=== PATIENT | male | born 1945 | race Caucasian/White ===

== ENCOUNTER 2016-12-23 07:19 | Inpatient (IN) ==
[2016-12-23 08:00] LABS: Basophils # 0.1 10*3/uL (0.0-0.2); Basophils % 0.3 % (0.0-0.8); Eosinophils # 0.1 10*3/uL (0.0-0.87); Eosinophils % 0.7 % (0.00-10.9); Hemoglobin 15.4 GM/DL (14.0-18.0); Immature Granulocytes % 0.7 %; Immature Granulocytes Absolute 0.11 #; Lymphocytes # 1.6 10*3/uL (1.4-4.0); Lymphocytes % 10.8 % (21.2-54.2); Mean Corpuscular HGB Conc 32.8 GM/DL (32-36); Mean Corpuscular Hemoglobin 30 PG (27-34); Mean Corpuscular Volume 90.4 FL (87-102); Mean Platelet Volume 11.3 FL (9.6-12.0); Monocytes # 1.4 10*3/uL (0.11-0.8); Monocytes % 9.3 % (1.7-12.7); Neutrophils # 11.9 10*3/uL (1.4-7.4); Neutrophils % 78.2 % (38.7-73.9); Platelet Count 183 T/CUMM (130-400); Red Cell Distribution Width 13.8 % (9.3-17.3); White Blood Count 15.2 T/CUMM (4-12)
--- NOTE | 2016-12-23 08:07 | XRay Report ---
XR chest 2V Date: 12/23/2016 7:42 AM History: Shortness of breath Comparison: 11/21/2016 Technique: PA and lateral chest Findings: The heart is normal in size with prior median sternotomy. Progressive parenchymal findings with small pleural effusions. Stable mediastinum with degenerative changes. Impression: COPD with chronic scarring patient with prior median sternotomy. Progressive atelectasis/infiltration/edema in the lower lung zones with small pleural effusions. PROCEDURE INTERPRETED AT [facility] DEPARTMENT OF RADIOLOGY Final Report Signed by: Dr. Pham Young
[2016-12-23] MEDS ORDERED: FUROSEMIDE 100 MG/10 ML VIAL IV STA (08:11)
[2016-12-23] MEDS ORDERED: FUROSEMIDE 100 MG/10 ML VIAL ONE (08:13)
[2016-12-23 08:18] LABS: D-Dimer <= 0.5 MG/L FEU; PT Patient Result 10.5 SECS; Partial Thromboplastin Time 33.2 SECS (0-40)
--- NOTE | 2016-12-23 08:18 | Emergency Department Note ---
Annie Fraser Brittany, am scribing for, and in the presence of, Alexx Nelson MD 08: 17. Leslie Fraser James D, MD, personally performed the services described in this documentation, ascribed by Aundrea Valencia in my presence, and it is both accurate and complete 818 . Arrival - Arrival Chief Complaint: Shortness of Breath Stated Complaint: CANT GET AIR ED Nursing Triage Note: c/o sob since thursday. patient currently being treated for blockage by Dr. Nunez with meds. unable to cath patient. hx: COPD Mode of Arrival: Wheelchair Limitations: No Limitations Source: Patient, Family Time Seen by Provider: 12/23/16 07:40 - History of Present Illness HPI Narrative: This is a 71 y/o white male,who presents to the ED with c/o dyspnea which started 3 days ago. He states the SOB is worse with exertion. He denies CP, but reports nausea and diaphoresis. He reports last night he had to sleep with extra pillows. He denies a cough or fever. Pt has no other complaints/pain in the ED at this time. Pt has a PMhx of CAD, HTN, thyroid disorder, cardiovascular problems, IDDM, dyslipidemia, and COPD. Pt has had a cardiac cath with 5 stents, CABG x 2. Pt has a family medical Hx of diabetes and heart disease. Pt is a former smoker. Pt is currently being Tx by Dr. Nunez for a blockage and is currently taking meds for this. Onset (ago): day(s) (Started 3 days ago) Consistency: constant Severity: moderate Allergies/Adverse Reactions: Allergies Allergy/AdvReac Type Severity Reaction Status Date / Time No Known Allergies Allergy Verified 11/11/16 11:33 Home Medications: Home Medications Medication Instructions Recorded Confirmed Type Aspirin [Ecotrin] 81 mg PO DAILY 11/28/15 11/22/16 History Budesonide/Formoterol 80-4.5 2 puff INH BID 11/28/15 11/22/16 History [Symbicort 80-4.5] Clopidogrel [Plavix] 75 mg PO DAILY 11/28/15 11/22/16 History Hum Insulin NPH/Reg Insulin Hm 62 unit SUBCUT BEDTIME 11/28/15 11/22/16 History [NovoLIN 70/30] Hum Insulin NPH/Reg Insulin Hm 74 unit SUBCUT DAILY 11/28/15 11/22/16 History [NovoLIN 70/30] Levothyroxine Tab [Synthroid Tab] 150 mcg PO DAILY 11/28/15 11/22/16 History Lisinopril 5 mg PO DAILY 11/28/15 11/22/16 History Montelukast Tab [Singulair Tab] 10 mg PO DAILY 11/28/15 11/22/16 History Nitroglycerin Sl Tab [Nitrostat] 0.4 mg SL Q5M PRN 11/28/15 11/22/16 History Magnesium Oxide [Magox 400] 400 mg PO BID 11/11/16 11/22/16 History Albuterol Sulfate [Proair HFA] 2 puff INH Q4H PRN 11/22/16 11/22/16 History Bisoprolol [Zebeta] 5 mg PO BID #60 tablet 11/23/16 Rx Pioglitazone [Actos] 45 mg PO DAILY tablet 11/23/16 Rx Ranolazine [Ranexa] 500 mg PO BID tablet 11/23/16 Rx Simvastatin [Zocor] 20 mg PO BEDTIME #30 tablet 11/23/16 Rx amLODIPine [Norvasc] 5 mg PO DAILY #30 tablet 11/23/16 Rx raNITIdine HCl [Ranitidine HCl] 150 mg PO BID #60 capsule 11/23/16 Rx Review of System - Review of System 12 point system: reviewed and no additional remarkable complaints except as stated - Review of System Constitutional: Present: diaphoresis. Absent: fever Respiratory: Absent: cough Cardiovascular: Present: dyspnea on exertion, orthopnea. Absent: chest pain Gastrointestinal: Present: nausea Medical,Surgical,& Family Hx - Medical History Cardio: History of: CAD, Hypertension, Cardiovascular Problems No history of: Aneurysm, Cardiac Dysrhythmia, Congenital Heart Disease, [place], Pacemaker, PVD Psychological: No history of: Bipolar Disorder, Depression, Previous Suicide Attempt Neurology: No history of: Seizures Endocrine: History of: Diabetes Mellitus (IDDM), Dyslipidemia, Thyroid Disorder Respiratory: History of: COPD No history of: Asthma, Bronchitis, Obstructive Sleep Apnea Hematology: No history of: Blood Transfusion Reaction, Blood Disorders - Surgical History Cardiac Surgeries: Sugical HX of: Cardiac Catheterization (stents x's 5), Cardiac Surgery (CABG 1995, 1999) Patient Denies: Femoral-Popliteal Bypass Graft, Carotid Endarterectomy, Internal Defibrillator, Vascular Access Devices Thoracic Surgeries: Patient denies;: Organ Transplant, Lobectomy HEENT Surgeries: Surgical HX of: Tonsilectomy & Adenoidectomy Patient denies: Carotid Endarterectomy Abdominal Surgeries: Patient denies: Splenectomy - Family History Family History: Reports;: Family Diabetes (mother), Family Heart Disease (mother ) Denies;: Family Hypertension, Family Psychiatric Problems, Family Stroke - Social History Smoking Status: Former smoker Frequency of Alcohol Use: None Type of Drug Use: None Exam Vital Signs: Vital Signs Temperature 97.6 F 12/23/16 07:50 Pulse Rate 71 12/23/16 08:30 Respiratory Rate 21 12/23/16 08:30 Blood Pressure 109/62 12/23/16 08:30 O2 Sat by Pulse Oximetry 95 12/23/16 08:30 GENERAL: This is a well-nourished well-developed white male in no apparent distress. VITAL SIGNS: Reviewed HEENT: Head is atraumatic and normocephalic. Pupils are equal round react to light. Extraocular movements are intact. Oropharynx is benign with moist mucous membranes. NECK: Neck is soft and supple without tenderness. There are no masses. There is no lymphadenopathy. LUNGS: Lungs are clear to auscultation. Chest rises symmetrically. There is no chest wall tenderness. CV: Heart is regular rate and rhythm without murmurs rubs or gallops. ABDOMEN: Abdomen is soft, nontender to palpation. There are no abdominal abnormal masses palpated. There is no organomegaly. Bowel sounds are present and active. SKIN: Skin is warm and dry. No rash. EXTREMITIES: Patient has full range of motion without tenderness. There is no pedal edema. NEUROLOGIC: Awake alert and oriented 4. Cranial nerves II through XII are grossly intact. Motor is 5 over 5 in all extremities bilaterally. Results - Labs CBC & BMP: 12/23/16 07:50 12/23/16 07:50 Lab Results: I have reviewed the patients labs Labs: Laboratory Tests 12/23/16 12/23/16 12/23/16 07:50 07:50 07:50 WBC 15.2 H Hgb 15.4 Hct 47.0 Plt Count 183 INR 1.0 Troponin I 0.349 H B-Natriuretic Peptide 12/23/16 07:50 WBC Hgb Hct Plt Count INR Troponin I B-Natriuretic Peptide 525 H - EKG EKG results: interpreted by ERMD - Impressions EKG: Normal sinus rhythm with a rate of 74, left atrial enlargement, nonspecific ST-T wave changes, normal axis. - Diagnostic Findings Procedure: Chest x-ray: image reviewed by me (Increased pulmonary markings in the bases bilaterally, old median sternotomy, small bilateral pleural effusions. ) Disposition Clinical Impression: Coronary artery disease, Elevated troponin, Dyspnea on exertion Case discussed with: patient Disposition: Still a Patient Condition: Stable
[2016-12-23 08:39] LABS: Bilirubin,Total 1.4 MG/DL (0.2-1.0); Osmolality,Calculated 289.8 MOS/KG (273-304); Potassium 4.9 MMOL/L (3.5-5.1); Total Protein 6.9 G/DL (6.4-8.3); Troponin I Only 0.349 NG/ML (0.00-0.045)
[2016-12-23] MEDS ORDERED: ENOXAPARIN 100 MG/ML SYRINGE SUBCUT STA (08:52)
[2016-12-23] MEDS ORDERED: ASPIRIN 325 MG TABLET PO STA (08:52)
[2016-12-23] MEDS ORDERED: ENOXAPARIN 100 MG/ML SYRINGE SUBCUT ONE (08:57)
[2016-12-23] MEDS ORDERED: GLUCAGON 1 MG VIAL IM PRN (10:00)
[2016-12-23] MEDS ORDERED: MAGNESIUM SULF RIDER 2 GM in PREMIX 1 EACH IV PRN (10:00)
[2016-12-23] MEDS ORDERED: MAGNESIUM SULF RIDER 4 GM in PREMIX 1 EACH IV PRN (10:00)
[2016-12-23] MEDS ORDERED: DEXTROSE 50% 25 GM/50 ML VIAL IV PRN (10:00)
--- NOTE | 2016-12-23 10:38 | EKG Report ---
Stationary ECG Study [facility] ER Test Date: 12/23/2016 10:36:53 AM Pat Name: LIONEL PEREZ Department: Room: 130 Gender: M Parking Worker: : 1945 Requested by: Alexx Araiza Order Number: [id number] Reading MD: NBA NOLASCO Intervals [place] Rate: 66 P: 65 SC: 155 QRS: 59 QRSD: 112 T: 138 QT: 421 QTc: 435 Interpretive Statements SINUS RHYTHM POSSIBLE LEFT ATRIAL ENLARGEMENT ANTERIOR MYOCARDIAL INFARCTION, PROBABLY RECENT Electronically Signed On 12-24-16 20:18:42 CDT by NBA NOLASCO [email or web address]
[2016-12-23 11:13] LABS: Troponin I Only 0.392 NG/ML (0.00-0.045)
--- NOTE | 2016-12-23 12:14 | EKG Report ---
Stationary ECG Study [facility] ER Test Date: 12/23/2016 7:48:52 AM Pat Name: LIONEL PEREZ Department: Room: 130 Gender: M Assembly Inspector: : 1945 Requested by: Alexx Araiza Order Number: [id number] Reading MD: NBA NOLASCO Intervals [place] Rate: 74 P: 64 TN: 166 QRS: 60 QRSD: 109 T: 139 QT: 383 QTc: 411 Interpretive Statements SINUS RHYTHM LEFT ATRIAL ENLARGEMENT ABNORMALITY Electronically Signed On 12-24-16 20:17:37 CDT by NBA NOLASCO [email or web address]
[2016-12-23] MEDS: INSULIN LISPRO 100 UNIT/ML SUBCUT SCH ×3 (12:21→21:00)
--- NOTE | 2016-12-23 12:49 | EKG Report ---
Stationary ECG Study [facility] Test Date: 12/23/2016 12:48:05 PM Pat Name: LIONEL PEREZ Department: Room: 130 Gender: M Test Driver: VANITA : 1945 Requested by: Alexx Araiza Order Number: [id number] Reading MD: NBA NOLASCO Intervals [place] Rate: 73 P: 68 NC: 176 QRS: 64 QRSD: 112 T: 132 QT: 382 QTc: 408 Interpretive Statements SINUS RHYTHM MODERATE INTRAVENTRICULAR CONDUCTION DELAY NONSPECIFIC OLD ANTEROSEPTAL MYOCARDIAL INFARCTION Electronically Signed On 12-24-16 20:52:41 CDT by NBA NOLASCO [email or web address]
[2016-12-23] MEDS: SODIUM CHLORIDE 0.9% 1,000 ML IV SCH (13:00)
[2016-12-23 13:26] LABS: Troponin I Only 0.356 NG/ML (0.00-0.045)
--- NOTE | 2016-12-23 14:00 | Cardiology History & Physical ---
Assessment and Plan - Time spent with patient Time spent with patient: Greater than 30 minutes (due to assessment, plan, and documentation) (1) Dyspnea on exertion Status: Acute Assessment and plan: We will start Lasix 20 mg IV daily. He received 60 mg of Lasix IV in the ER today and has diuresed well. He is now breathing more comfortably. Current Visit: Yes (2) Ischemic cardiomyopathy Status: Chronic Assessment and plan: Continue home medications including beta kaila, calcium channel kaila, divya inhibitor. Start Lasix 20mg IV daily. Monitor BMP. Has undergone recent TTE and LVG. Will defer to Dr. Suero as to rechecking an echocardiogram. Current Visit: No (3) Coronary artery disease Status: Chronic Assessment and plan: Troponins flat. Currently denies chest pain. Continue with current therapy. Current Visit: Yes (4) Elevated troponin Status: Acute Assessment and plan: Flat troponin elevation. Denies chest pain. Continue with current therapy. Current Visit: Yes (5) COPD (chronic obstructive pulmonary disease) Status: Chronic Assessment and plan: Continue home meds. O2 PRN. Current Visit: No (6) HLD (hyperlipidemia) Status: Chronic Assessment and plan: Continue statin. Current Visit: No (7) HTN (hypertension) Status: Chronic Assessment and plan: Currently well controlled. Will continue home medications, monitor, and adjust as needed. Current Visit: No (8) History of ASCVD Status: Chronic Current Visit: No (9) Status post coronary artery bypass grafting Status: Chronic Assessment and plan: He recently underwent left heart catheterization on 11/11/[address] Nunez. He was found to have severe [place] multivessel coronary artery disease with one out of 3 grafts patent with good LAD vein graft and occluded circumflex graft. Ejection fraction was 55-60%. He has had continued accelerated anginal chest pain, most likely related to his occluded circumflex graft. At the time of cath, he was for continued aggressive medical therapy. Current Visit: No (10) T2DM (type 2 diabetes mellitus) Status: Chronic Assessment and plan: He has been placed on sliding scale insulin during hospitalization. Current Visit: No History of Present Illness Chief complaint: SOB History of present illness: Mr. Lawrence is a 71 year old male who is routinely followed by Dr. Nunez. Dr. Hernandez is his injection wax molder. He has history of coronary artery disease, ischemic cardiomyopathy, chronic obstructive pulmonary disease, type 2 diabetes, hyperlipidemia, hypertension, prior coronary artery bypass grafting ( 1995 & 1999). He has risk factors significant for: Personal history, age, sedentary lifestyle, hypertension, hyperlipidemia, former smoker. He reports he quit smoking 10-15 years ago but previously smoked for approximately 40-50 years. He presented to the emergency room today with complaints of shortness of breath. Mr. Lawrence has chronic dyspnea but reports this started getting worse on 12/19/16. He tells me he feels like he is "smothering" and is unable to draw a deep breath. He describes it as being worse with exertion and has had associated symptoms of nausea and diaphoresis. He has had a non-productive cough but denies fever, chills, painful inspiration, chest pain, palpitations, dizziness, or lightheadedness. He tells me has been unable to sleep flat and has had to sleep elevated on 2 thick pillows. He denies bilateral lower extremity, abdominal, or facial edema, but does report bilateral hand swelling yesterday. He was previously admitted on 11/21/16 with complaints of chest discomfort. He recently underwent left heart catheterization on 11/11/[address] Nunez. He was found to have severe quinault multivessel coronary artery disease with one out of 3 grafts patent with good LAD vein graft and occluded circumflex graft. Ejection fraction was 55-60%. He has had continued accelerated anginal chest pain, most likely related to his occluded circumflex graft. At the time of cath , he was for continued aggressive medical therapy. At his recent clinic visit with Dr. Nunez on 12/15/16, his Imdur was increased to 60mg orally twice daily , Zebeta was increased to 10mg orally in the morning and 5 mg orally in the evening. He tells me since these changes he has had no further chest pain. EKG on admission shows sinus rhythm with nonspecific ST-T wave abnormality. Rates have been controlled in the 70s. Blood pressure is currently well controlled. White blood cell count was elevated on admission but he currently has no signs and symptoms of infection. He has been afebrile. We will obtain a urinalysis, recheck CBC in the morning, and continue to monitor for signs of infection. He does report some urinary frequency last night but reports this has gotten better today. BNP on admission was 525. Chest x-ray was consistent with progressive edema in the lower lung zones with small pleural effusions. He was given 60 mg of Lasix IV in the emergency room and is now breathing more comfortably. He was noted to have a bump in his troponins at 0.349, 0.392, and 0.356. Ejection fraction per cath on November 11, 2016 was 55-60%. Transthoracic echocardiogram done on October 15, 2016 in the clinic revealed decreased left ventricular size, normal left ventricular systolic function, abnormal left ventricular diastolic dysfunction (stage I impaired relaxation), mild left ventricular hypertrophy, mildly increased left atrial diameter, mild mitral regurgitation, mild tricuspid regurgitation. Further plan and addendum to follow by Dr. Suero. Home Medications Medication Instructions Recorded Confirmed Type Aspirin [Ecotrin] 81 mg PO DAILY 11/28/15 12/23/16 History Budesonide/Formoterol 80-4.5 2 puff INH BID 11/28/15 12/23/16 History [Symbicort 80-4.5] Clopidogrel [Plavix] 75 mg PO DAILY 11/28/15 12/23/16 History Hum Insulin NPH/Reg Insulin Hm 62 unit SUBCUT BEDTIME 11/28/15 12/23/16 History [NovoLIN 70/30] Hum Insulin NPH/Reg Insulin Hm 74 unit SUBCUT DAILY 11/28/15 12/23/16 History [NovoLIN 70/30] Levothyroxine Tab [Synthroid Tab] 150 mcg PO DAILY 11/28/15 12/23/16 History Lisinopril 5 mg PO DAILY 11/28/15 12/23/16 History Montelukast Tab [Singulair Tab] 10 mg PO DAILY 11/28/15 12/23/16 History Nitroglycerin Sl Tab [Nitrostat] 0.4 mg SL Q5M PRN 11/28/15 12/23/16 History Magnesium Oxide [Magox 400] 400 mg PO BID 11/11/16 12/23/16 History Albuterol Sulfate [Proair HFA] 2 puff INH Q4H PRN 11/22/16 12/23/16 History Ranolazine [Ranexa] 500 mg PO BID tablet 11/23/16 12/23/16 Rx amLODIPine [Norvasc] 5 mg PO DAILY #30 tablet 11/23/16 12/23/16 Rx raNITIdine HCl [Ranitidine HCl] 150 mg PO BID #60 capsule 11/23/16 12/23/16 Rx Bisoprolol Fumarate 5 mg PO BEDTIME 12/23/16 12/23/16 History Bisoprolol [Zebeta] 10 mg PO QAM 12/23/16 12/23/16 History Isosorbide Mononitrate [Isosorbide 60 mg PO DAILY 12/23/16 12/23/16 History Mononitrate ER] metFORMIN [Glucophage] 500 mg PO TID W/MEALS 12/23/16 12/23/16 History Allergies Allergy/AdvReac Type Severity Reaction Status Date / Time No Known Allergies Allergy Verified 11/11/16 11:33 Review of systems: - Constitutional: Present: As per HPI. Absent: anorexia, chills, daytime sleepiness, excessive sweating, fever(s), frequent falls, headache(s), increased appetite, lethargy, malaise, night sweats, stops breathing during sleep, weakness, weight gain, weight loss, fatigue. - EENT Eyes: Present: As per HPI. Absent: blurry vision, diplopia, loss of vision Ears: Present: As per HPI. Absent: decreased hearing, ear discharge, ear pain Nose, mouth and throat: Present: As per HPI. Absent: dysphagia, epistaxis, headache(s), hoarseness, lip swelling, nasal congestion, neck mass, neck pain, sinus pressure, sore throat, throat swelling, tongue swelling, vertigo - Cardiovascular: Present: dyspnea, dyspnea on exertion, bilateral hand edema yesterday, diaphoresis, as per HPI. Absent: chest pain at rest, chest pain with activity, claudication, radiating jaw, neck or arm pain, lightheadedness, orthopnea, palpitations, PND - Respiratory: Present: non productive cough, as per HPI. Absent: dyspnea, dyspnea on exertion, hemoptysis, wheezing, snoring, pain on inspiration - Gastrointestinal: Present: nausea, As per HPI. Absent: abdominal pain, bloating, change in bowel habits, constipation, diarrhea, heartburn, hematemesis , hematochezia, loose stools, melena, vomiting - Genitourinary: Present: urinary frequency, As per HPI. Absent: difficulty urinating, dysuria, flank pain, hematuria, nocturia, urinary incontinence - Musculoskeletal: Present: As per HPI. Absent: arthralgias, back pain, joint swelling, limited range of motion, muscle cramps, muscle weakness, myalgias - Neurological: Present: As per HPI. Absent: abnormal gait, abnormal speech, behavioral changes, confusion, convulsions, disequilibrium, dizziness, focal weakness, frequent falls, headache(s), memory loss, numbness, paresthesias, radicular pain, syncope, tremor(s) - Psychiatric: Present: As per HPI. Absent: anxiety, confusion, depression, panic attacks - Endocrine: Present: As per HPI. Absent: cold intolerance, fatigue, heat intolerance, polydipsia, polyphagia - Hematologic/Lymphatic: Present: As per HPI. Absent: easy bleeding, easy bruising, lymphadenopathy Medical,Surgical,& Family Hx - Medical History Cardio: History of: CAD, Hypertension, Cardiovascular Problems No history of: Aneurysm, Cardiac Dysrhythmia, Congenital Heart Disease, [place], Pacemaker, PVD Psychological: No history of: Bipolar Disorder, Depression, Previous Suicide Attempt Neurology: No history of: Seizures Endocrine: History of: Diabetes Mellitus (IDDM), Dyslipidemia, Thyroid Disorder Respiratory: History of: COPD No history of: Asthma, Bronchitis, Obstructive Sleep Apnea Musculoskeletal: No history of: Amputation Hematology: No history of: Blood Transfusion Reaction, Blood Disorders - Surgical History Cardiac Surgeries: Sugical HX of: Cardiac Catheterization (stents x's 5), Cardiac Surgery (CABG 1995, 1999) Patient Denies: Femoral-Popliteal Bypass Graft, Carotid Endarterectomy, Internal Defibrillator, Vascular Access Devices Thoracic Surgeries: Patient denies;: Organ Transplant, Lobectomy HEENT Surgeries: Surgical HX of: Tonsilectomy & Adenoidectomy Patient denies: Carotid Endarterectomy Abdominal Surgeries: Patient denies: Abdominal Surgery, Appendectomy, Cholecystectomy, Hernia Repair, Splenectomy - Family History Family History: Reports;: Family Diabetes (mother), Family Heart Disease (mother ) Denies;: Family Hypertension, Family Psychiatric Problems, Family Stroke - Social History Smoking Status: Former smoker Frequency of Alcohol Use: None Type of Drug Use: None Cardiology Physical Exam - Constitutional Vitals: Vital Signs Temp Pulse Resp BP Pulse Ox 96.5 F L 71 21 116/69 99 12/23/16 12:00 12/23/16 12:00 12/23/16 12:00 12/23/16 12:00 12/23/16 12:00 Intake and Output 12/22/16 12/23/16 12/23/16 22:59 06:59 14:59 Output Total 500 / 500 Balance -500 / -500 Output: Urine 500 / 500 Other: Voiding Method Urinal # Voids 2 Weight 226 lb 8 oz Patient Weight 12/24/16 06:59 Weight 226 lb 8 oz Exam: General: Present: Appears Well, No Apparent Distress. Pleasant and cooperative. Appears comfortable. Mild conversational dyspnea noted. HEENT: Present: PERRL, Normocephaly, atraumatic. Mucus Membranes Moist. No jaundice noted. Conjunctiva moist and clear, sclerae anicteric Neck: Present: Supple Neck, Midline Trachea, No Masses, No Bruit Cardiac: Present: Regular Rate and Rhythm, No Murmur Lungs: Present: Bibasilar crackles, no wheeze, rhonchi, rales. Neuro: Present: Awake, alert, and oriented x3. Moves all extremities well without hemiparesis or paralysis. Grossly Intact. Absent: Resting Tremor, Essential Tremor Abdomen: Present: Soft, Active Bowel Sounds, No Masses, Non-Tender, nondistended. No abdominal bruit or thrill noted. Skin: Present: Clear. Absent: Rash, No skin breakdown. Musculoskeletal: Present: No Fluid Collection, No Pain, Normal Range of Motion Extremities: Present: Normal Gait, No Clubbing, No Cyanosis, Upper Extr. Pulses 2+, Lower Extr. Pulses 2+, No edema. Capillary refill less than 3 seconds. Result/EKG - Labs CBC & BMP: 12/23/16 07:50 12/23/16 07:50 Lab Results: I have reviewed the past 24 hour labs Labs: Laboratory Results - last 24 hr 12/23/16 12/23/16 10:30 11:39 POC Glucose 153 H Total Creatine Kinase 113 CK-MB (CK-2) 2.9 Troponin I 0.392 H - EKG EKG results: interpreted by me, sinus rhythm (with nonspecific ST-T wave abnormality)
[2016-12-23] MEDS ORDERED: ZALEPLON 5 MG CAPSULE PO PRN (15:09)
[2016-12-23] MEDS ORDERED: BISACODYL 5 MG TABLET PO PRN (15:09)
[2016-12-23] MEDS ORDERED: ACETAMINOPHEN 325 MG TABLET PO PRN (15:09)
[2016-12-23] MEDS ORDERED: ONDANSETRON 4 MG/2 ML VIAL IV PRN (15:09)
[2016-12-23] MEDS ORDERED: NITROGLYCERIN SL 0.4 MG TABLET SL PRN (15:53)
[2016-12-23] MEDS ORDERED: ALBUTEROL 2.5 MG/3 ML NEB RESP TX PRN (15:53)
--- NOTE | 2016-12-23 16:27 | EKG Report ---
Stationary ECG Study [facility] Test Date: 12/23/2016 4:25:19 PM Pat Name: LIONEL PEREZ Department: Room: 130 Gender: M Student Dean: : 1945 Requested by: Alexx Araiza Order Number: [id number] Reading MD: SAULO NAVARRETE Intervals [place] Rate: 71 P: 72 MS: 162 QRS: 68 QRSD: 113 T: 138 QT: 427 QTc: 450 Interpretive Statements SINUS RHYTHM POSSIBLE LEFT ATRIAL ENLARGEMENT ANTERIOR MYOCARDIAL INFARCTION, PROBABLY RECENT Electronically Signed On 12-25-16 13:57:56 CDT by SAULO NAVARRETE [email or web address]
[2016-12-23] MEDS: CLOPIDOGREL 75 MG TABLET PO SCH (16:47)
[2016-12-23 16:48] LABS: Troponin I Only 0.331 NG/ML (0.00-0.045)
[2016-12-23 17:08] LABS: Apearance,Urine CLEAR (Clear); Bilirubin,Urine Negative (Negative); Blood, Urine Negative (Negative); Glucose,Urine (UA) Negative (Negative); Ketones,Urine Negative (Negative); Nitrite,Urine Negative (Negative); Protein,Urine Negative; Urine Color Yellow (Yellow); Urine Specific Gravity 1.005 (1.001-1.035); Urine Urobilinogen < 2.0 EU/DL (0.2-1.0); WBC,Urine <1 /HPF (0-6)
[2016-12-23] MEDS: ALBUTEROL/IPRATROPIUM 3 ML NEB RESP TX SCH (20:49)
[2016-12-23] MEDS ORDERED: BISOPROLOL 5 MG TABLET PO SCH (21:00)
[2016-12-23] MEDS: RANOLAZINE 500 MG TABLET PO SCH (21:57)
[2016-12-23] MEDS: FAMOTIDINE 20 MG TABLET PO SCH (21:57)
[2016-12-23] MEDS: MAGNESIUM OXIDE 400 MG TABLET PO SCH (21:57)
[2016-12-23] MEDS: BUDESONIDE/FORMOTEROL 80-4.5 INHALER 6.9 GM INH SCH (21:57)
[2016-12-24] MEDS: ALBUTEROL/IPRATROPIUM 3 ML NEB RESP TX SCH ×6 (00:09→21:12)
[2016-12-24 05:42] LABS: Basophils % 0.2 % (0.0-0.8); Eosinophils # 0.1 10*3/uL (0.0-0.87); Hematocrit 44.3 VOL% (42.0-52.0); Hemoglobin 14.4 GM/DL (14.0-18.0); Immature Granulocytes % 0.8 %; Immature Granulocytes Absolute 0.09 #; Lymphocytes # 2.2 10*3/uL (1.4-4.0); Lymphocytes % 20.1 % (21.2-54.2); Mean Corpuscular HGB Conc 32.5 GM/DL (32-36); Mean Corpuscular Hemoglobin 29 PG (27-34); Mean Platelet Volume 11.6 FL (9.6-12.0); Monocytes # 1.2 10*3/uL (0.11-0.8); Monocytes % 10.8 % (1.7-12.7); Neutrophils # 7.4 10*3/uL (1.4-7.4); Neutrophils % 67.1 % (38.7-73.9); Platelet Count 161 T/CUMM (130-400); Red Blood Count 4.98 MC/CUMM (3.8-5.5); White Blood Count 11.1 T/CUMM (4-12)
[2016-12-24 06:12] LABS: Calcium 8.6 MG/DL (8.5-10.1); Magnesium 2.2 MG/DL (1.8-2.4); Potassium 4.7 MMOL/L (3.5-5.1)
[2016-12-24 06:20] LABS: Risk Ratio 2.8; VLDL CHOLESTEROL 20.4 MG/DL
[2016-12-24] MEDS: SODIUM CHLORIDE 0.9% 1,000 ML IV SCH (07:30)
[2016-12-24] MEDS: INSULIN LISPRO 100 UNIT/ML SUBCUT SCH ×4 (08:53→20:45)
[2016-12-24] MEDS: ASPIRIN EC 81 MG TABLET PO SCH (08:54)
[2016-12-24] MEDS: amLODIPine 5 MG TABLET PO SCH (08:54)
[2016-12-24] MEDS: MAGNESIUM OXIDE 400 MG TABLET PO SCH ×2 (08:54→20:44)
[2016-12-24] MEDS: ISOSORBIDE MONONITRATE 60 MG TABLET PO SCH (08:54)
[2016-12-24] MEDS: LISINOPRIL 5 MG TABLET PO SCH (08:55)
[2016-12-24] MEDS: PANTOPRAZOLE 40 MG TABLET PO SCH (08:55)
[2016-12-24] MEDS: LEVOTHYROXINE 150 MCG TABLET PO SCH (08:55)
[2016-12-24] MEDS: FAMOTIDINE 20 MG TABLET PO SCH ×2 (08:55→20:44)
[2016-12-24] MEDS: CLOPIDOGREL 75 MG TABLET PO SCH (08:55)
[2016-12-24] MEDS: BUDESONIDE/FORMOTEROL 80-4.5 INHALER 6.9 GM INH SCH ×2 (08:56→22:14)
[2016-12-24] MEDS: MONTELUKAST 10 MG TABLET PO SCH (08:56)
[2016-12-24] MEDS: RANOLAZINE 500 MG TABLET PO SCH ×2 (08:56→20:44)
[2016-12-24] MEDS: FUROSEMIDE 20 MG/2 ML VIAL IV SCH (08:59)
[2016-12-24] MEDS ORDERED: ENOXAPARIN 40 MG/0.4 ML SYRINGE SUBCUT SCH (09:00)
[2016-12-24] MEDS ORDERED: BISOPROLOL 5 MG TABLET PO SCH (09:00)
[2016-12-24] MEDS ORDERED: BISOPROLOL 5 MG TABLET PO ONE (10:54)
--- NOTE | 2016-12-24 11:00 | EKG Report ---
Stationary ECG Study [facility] Test Date: 12/24/2016 10:59:28 AM Pat Name: LIONEL PEREZ Department: Room: 296 Gender: M Sales Inspector: GM : 1945 Requested by: Leland Suero Order Number: [id number] Reading MD: SAULO NAVARRETE Intervals [place] Rate: 84 P: 81 AR: 173 QRS: 96 QRSD: 118 T: 152 QT: 389 QTc: 430 Interpretive Statements SINUS RHYTHM BORDERLINE RIGHT AXIS DEVIATION ANTEROSEPTAL MYOCARDIAL INFARCTION, POSSIBLY RECENT Electronically Signed On 12-26-16 12:14:54 CDT by SAULO NAVARRETE [email or web address]
[2016-12-24] MEDS ORDERED: ENOXAPARIN 60 MG/0.6 ML SYRINGE SUBCUT ONE (11:09)
[2016-12-24] MEDS ORDERED: NITROGLYCERIN 2% OINT 1 INCH/GM PACK TOP SCH (12:00)
[2016-12-24] MEDS ORDERED: DIAZEPAM 5 MG TABLET PO ONE (12:34)
[2016-12-24] MEDS ORDERED: MAGNESIUM SULF RIDER 2 GM in PREMIX 1 EACH IV PRN (12:34)
[2016-12-24] MEDS ORDERED: diphenhydrAMINE CAP 25 MG CAPSULE PO ONE (12:34)
[2016-12-24] MEDS ORDERED: POTASSIUM CHLORIDE RIDER 10 MEQ in PREMIX 1 EACH IV PRN (12:34)
--- NOTE | 2016-12-24 12:36 | History and Physical Update ---
Sedation H&P Update - History and Physical H&P was reviewed, the patient examined and there: are no changes in the patients condition since last H&P was completed. - Dictation Physical: refer to H&P completed by admitting physician - Physical Exam Mental Status: alert and oriented Heart: regular rate and rhythm Lung: clear to auscultation Abdomen: within normal limits Vitals: within normal limits - Sedation Plan for Sedation: moderate Patient Consent: Procedure disscussed with patient and patinet has consented., Risks and benefits were discussed with patient,including infection,, bleeding, injury to surrounding structures, seizure, temporary nerve, Patient understands and accepts potential risks/benefits and agrees to, proceed. ASA Class: IV Airway Assessment: Class III: Soft palate, base of uvula visible
[2016-12-24] MEDS ORDERED: HEPARIN/NACL 0.9% 2 UNITS/ML 1,000 ML IV ONE (13:05)
[2016-12-24] MEDS ORDERED: LIDOCAINE 1% 20 ML VIAL ONE (13:05)
[2016-12-24] MEDS ORDERED: MIDAZOLAM 2 MG/2 ML VIAL ONE ×2 (13:16→14:22)
[2016-12-24] MEDS ORDERED: fentaNYL 100 MCG/2 ML VIAL ONE (13:16)
[2016-12-24] MEDS ORDERED: ENOXAPARIN 60 MG/0.6 ML SYRINGE ONE (13:44)
--- NOTE | 2016-12-24 14:30 | Cardiology Progress Note ---
Assessment and Plan - Time spent with patient Time spent with patient: Greater than 30 minutes (1) Dyspnea on exertion Status: Acute Assessment and plan: Yesterday, the patient was admitted with dyspnea on exertion. His thought to possibly be heart failure or lung disease. Is being treated. Today, he is having unstable angina with inferolateral EKG changes Plan/recommendation: ask Dr. Nayla Elizabeth to see the Films. We will recath him if he thinks there is something he could fix percutaneously The decision on doing a heart cath was made today. It was not planned for today Increase Lovenox to try to given the equivalent of 1 milligram per kilogram twice daily Hydrate with fluids if he has a cath Add Nitropaste 1 inch now and every 6 hours EKG was done. It showed inferolateral ST depression I gave him an extra 5 mg of bisoprolol. I will then increase the bisoprolol to 10 mg p.o. twice daily. The above was discussed with the patient. He is willing to undergo cath if needed. Current Visit: Yes (2) Elevated troponin Status: Acute Current Visit: Yes (3) Coronary artery disease Status: Chronic Current Visit: Yes (4) Chest pain Status: Acute Current Visit: No (5) Unstable angina pectoris Status: Acute Current Visit: No (6) COPD (chronic obstructive pulmonary disease) Status: Chronic Current Visit: No (7) HLD (hyperlipidemia) Status: Chronic Current Visit: No (8) HTN (hypertension) Status: Chronic Current Visit: No (9) Status post coronary artery bypass grafting Status: Chronic Current Visit: No (10) T2DM (type 2 diabetes mellitus) Status: Chronic Current Visit: No Cardiology - PN: Subj Interval history: the patient is having chest pain. It is his type of angina. The patient is having chest pain. It is his angina. It started mildly early this morning. I saw the patient around 11 AM. Exam (Progress Note) - Constitutional Exam: HEENT: Pupils equal, reactive to light and accommodation Neck: NoJVD or bruit Lungs clear to auscultation Heart: Regular rhythm rate with normal S1 and S2. Apical S4 Abdomen: No hepatosplenomegaly Spine/extremities: No clubbing, cyanosis, or edema Neuro: Nonfocal Psych: No depression or anxiety Result/EKG - Labs CBC & BMP: 12/24/16 05:22 12/24/16 05:22 Lab Results: I have reviewed the past 24 hour labs - EKG EKG results: interpreted by me Quality Measures - VTE Deep Vein Thrombosis/Pulmonary Embolism Present on Admission: No
[2016-12-24] MEDS ORDERED: NITROGLYCERIN DRIP 50 MG/250 ML BOTTLE IV ONE (14:39)
[2016-12-24] MEDS ORDERED: CLOPIDOGREL 300 MG TABLET ONE (14:50)
[2016-12-24] MEDS ORDERED: CLOPIDOGREL 300 MG TABLET PO ONE (14:55)
--- NOTE | 2016-12-24 15:15 | Cardiac Catheterization ---
Date of Procedure:: 12/24/16 Pre-op Diagnosis: Unstable angina Post-op diagnosis: other (Unstable angina secondary to occluded saphenous vein graft to the LAD) Procedure: Procedures: 1. Selective left and right coronary angiography 2. Selective saphenous vein graft injection to the LAD 3. Percutaneous coronary mention of the saphenous vein graft to the LAD 4. Left heart catheterization resting hemodynamics After consent was taken from the patient. Taken to the catheterization lab for left heart catheterization via the femoral artery. Time out was taken and recorded. 1% lidocaine was infiltrated in the skin and subcutaneous tissue overlying the right femoral artery. Modified Seldinger technique and an 18- gauge Anhelo needle was used for access to the right femoral artery. An 0.35 J- wire was advanced through the needle into the central aorta under fluoroscopy. A small skin was made and a 6 [place] sheath was placed over the wire. The sheath was aspirated and flushed. A JL46 was advanced over the wires in the left main coronary artery was selectively engaged. Multiple orthogonal views of the left system were obtained. The catheter was then exchanged over the wire. The sheath was aspirated and flushed. A JR4 catheter was advanced over the wire into the central aorta. The right coronary was selectively engaged and orthogonal views of the right coronary artery were obtained. Cath was then pulled back to engage the only remaining vein graft to the RCA it was engaged and found to be completely occluded. The catheter was then exchanged over the wire, the sheath was aspirated and flushed. At this time an angled pigtail catheter was advanced across the aortic valve into the ventricle. Pressure measurements were obtained and a cine ventriculogram was performed in the SUMMERS projection with 10 mL/s for a total of 30 mL of contrast. Pullback measurements were performed. The bottle machine operator reviewed the films. At this time additional 40 mg of IV Lovenox were given on the background of previous Lovenox given 2 sequential doses for a total of 100 mg over the last 6 or 8 hours. The patient was in chronic clopidogrel therapy. Sheath was aspirated and flushed at this time an LCB guide was advanced in the central aorta the saphenous vein graft to the LAD was engaged. There was 100% occlusion proximally with NOMI 0 flow. At this time the pro-water wire was advanced with some difficulty to the initial stent unsuccessfully the wire became deformed at the ENT was exchanged removed thrown away for a PT Graphix which was then advanced over the hump has point of the graft and would not proceed through the second stent. Support with a 2.0 X 12 balloon was able to advance the wire some better. Ultimately this wire to became deformed and it was exchanged for a short pro-water which was then used to gain access to the area that appeared to be consistent with the brev[place] mission LAD. Dottering was performed. It demonstrated that we were intact in the true lumen of the left anterior descending artery. At this time inflations were made at both stents there are areas of high-grade stenosis. The culprit lesion appeared to be the distal segment of the distal stent where there was an segment stenosis. This area was ballooned there is improvement in flow to NOMI I at this time there was a long segment of arterial felt to be probably early fibrotic changes or clot formation in the graft. There is absolutely no way feasible to deliver a filter wire at this time. The balloon was removed and the 3.0 x 38 mm stent was deployed covering the distal segment of the previously deployed distal stent all the way back for 38 mm. There appear to be dramatic improvement in flow at this time there was much better filling of the LAD. Now a second 3 oh by 33 mm Xience stent was placed in the proximal segment covering the previously deployed stent which also had significant amount of abnormalities and it. This felt short of the ostium due only to the length of available stents. There was dramatic improvement in the vessel after these 2 stents are deployed however it was clear that the segments between the distal proximal stent in the proximal distal stent was not acceptable. A third 3.5 x 38 mm Xience stent was deployed and overlapped both stents. At the completion of the procedure the ostium of the graft continued to have what appeared to be a flow- limiting lesion and a final 3.5 x 23 mm Xience drug-eluting stent was deployed. There appeared to be excellent angiographic result distal vessel is very small 200 g of intragraft nitroglycerin were given there was improvement. NOMI -3 flow was reestablished and all visible branches. Was felt that maximum benefit had been attained. The sheath was aspirated and flushed and a right femoral and iliac angiography was performed. The access site was amenable for closure and the area was reprepped with ChloraPrep and draped with sterile towels. The Mynx closure device was used in standard technique. There was no hematoma and distal pulses were good. Diagnostic fluoroscopy time 23.1 minutes with total fluoroscopy dose 2037 mGy Total contrast exposure 320 cc of Omnipaque FINDINGS: LV: 103/13 LVEDP: 15 Ao: 100/54 LM: Ostial disease approximately 60%. LAD: LAD is 100% occluded in the proximal segment there is a long segment of chronic total occlusion in the distal LAD is filled on initial films with homocollaterals the entire system is diffusely diseased LCx: There is a nondominant artery that is small. There are 2 reasonable obtuse marginals. RCA: There is a very large dominant vessel that is diffuse only mildly disease with no focal high-grade epicardial stenosis RFA/ATUL: There is mild atheroma in the right femoral artery the iliac artery looks good is amenable for closure with Mynx but there is a close by branches felt not to be used with Angio-Seal Assessment: 1. In segment and in-stent restenosis of previously deployed drug-eluting stents and saphenous vein graft to the LAD with NOMI 0 flow and 1% occlusion pre -PCI status post PCI with multiple long drug-eluting stents with NOMI-3 flow and angiographically less than 10% residual stenosis 2. Mildly increased left ventricular end-diastolic pressure PLAN: 1. Escalate dual antiplatelet therapy 2. Add dipyridamole 3. Medical management for remaining coronary artery disease 4. Aggressive statin medication 5. Cardiac rehabilitation 6. Monitor in the ICU for complications with serial cardiac biomarkers due to the 1% occlusion of the vessel and the nature of the work performed I will be anticipating an increase in troponins. 7. Had a long discussion with the patient's family about the findings and his long-term management of this disease Implants: Overlapping drug-eluting stents in the saphenous vein graft to the LAD as below distal to proximal: 3.0 X 38 mm Xience Alpine drug-eluting stent 3.5 x 38 mm Xience Alpine drug-eluting stent 3.0 x 33 mm Xience Alpine drug-eluting stent 3.5 x 23 mm Xience Alpine drug-eluting stent Anesthesia: moderate conscious sedation Surgeon / Physician: Nayla Casarez Dobie Worker: none Estimated blood loss: none Specimens: none sent Condition: stable Disposition: floor - Medications / Follow-up
[2016-12-24] MEDS: BISOPROLOL 5 MG TABLET PO SCH (20:44)
[2016-12-24] MEDS: CILOSTAZOL 50 MG TABLET PO SCH (20:44)
[2016-12-24] MEDS ORDERED: ENOXAPARIN 100 MG/ML SYRINGE SUBCUT SCH (21:00)
[2016-12-24] MEDS: ATORVASTATIN 80 MG TABLET PO SCH (22:14)
[2016-12-25] MEDS: ALBUTEROL/IPRATROPIUM 3 ML NEB RESP TX SCH ×6 (00:31→18:58)
[2016-12-25 03:47] LABS: Basophils # 0.1 10*3/uL (0.0-0.2); Basophils % 0.5 % (0.0-0.8); Eosinophils # 0.3 10*3/uL (0.0-0.87); Eosinophils % 2.5 % (0.00-10.9); Hematocrit 41.9 VOL% (42.0-52.0); Hemoglobin 13.8 GM/DL (14.0-18.0); Immature Granulocytes % 1.1 %; Immature Granulocytes Absolute 0.12 #; Lymphocytes # 2.5 10*3/uL (1.4-4.0); Lymphocytes % 23.2 % (21.2-54.2); Mean Corpuscular HGB Conc 32.9 GM/DL (32-36); Mean Corpuscular Hemoglobin 29 PG (27-34); Mean Corpuscular Volume 88.8 FL (87-102); Monocytes # 1.3 10*3/uL (0.11-0.8); Monocytes % 11.9 % (1.7-12.7); Neutrophils # 6.6 10*3/uL (1.4-7.4); Neutrophils % 60.8 % (38.7-73.9); Platelet Count 157 T/CUMM (130-400); Red Blood Count 4.72 MC/CUMM (3.8-5.5); Red Cell Distribution Width 13.7 % (9.3-17.3); White Blood Count 10.8 T/CUMM (4-12)
[2016-12-25 04:35] LABS: Calcium 8.7 MG/DL (8.5-10.1); Magnesium 2.5 MG/DL (1.8-2.4); Osmolality,Calculated 286.7 MOS/KG (273-304); Potassium 4.9 MMOL/L (3.5-5.1)
[2016-12-25] MEDS: SODIUM CHLORIDE 0.9% 1,000 ML IV SCH (06:11)
--- NOTE | 2016-12-25 06:33 | EKG Report ---
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
--- NOTE | 2016-12-25 07:44 | EKG Report ---
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
[2016-12-25] MEDS ORDERED: PRASUGREL 10 MG TABLET PO ONE (08:00)
[2016-12-25] MEDS: RANOLAZINE 500 MG TABLET PO SCH ×2 (08:41→21:04)
[2016-12-25] MEDS: ISOSORBIDE MONONITRATE 60 MG TABLET PO SCH (08:41)
[2016-12-25] MEDS: LISINOPRIL 5 MG TABLET PO SCH (08:41)
[2016-12-25] MEDS: INSULIN LISPRO 100 UNIT/ML SUBCUT SCH ×4 (08:41→21:04)
[2016-12-25] MEDS: FAMOTIDINE 20 MG TABLET PO SCH (08:42)
[2016-12-25] MEDS: amLODIPine 5 MG TABLET PO SCH (08:42)
[2016-12-25] MEDS: FUROSEMIDE 20 MG/2 ML VIAL IV SCH (08:42)
[2016-12-25] MEDS: MAGNESIUM OXIDE 400 MG TABLET PO SCH ×2 (08:42→21:04)
[2016-12-25] MEDS: MONTELUKAST 10 MG TABLET PO SCH (08:43)
[2016-12-25] MEDS: PANTOPRAZOLE 40 MG TABLET PO SCH (08:43)
[2016-12-25] MEDS: CILOSTAZOL 50 MG TABLET PO SCH ×2 (08:43→21:04)
[2016-12-25] MEDS: BISOPROLOL 5 MG TABLET PO SCH ×2 (08:43→21:04)
--- NOTE | 2016-12-25 08:45 | Event Note ---
I saw Mr. Lawrence this morning. I discussed with him findings of his left heart cath yesterday and the PCI. We increased his dual antiplatelet therapy to Effient and also added cilostazol to hopefully prevent future events and keep this graft open. He has a lot of stent. He voiced understanding. I am not surprised that his biomarkers went up as we restored flow to this vessel and worked significantly on the vein graft. I think it would be fine for him to be discharged later today.
[2016-12-25] MEDS: LEVOTHYROXINE 150 MCG TABLET PO SCH (08:48)
[2016-12-25] MEDS: ASPIRIN EC 81 MG TABLET PO SCH (08:48)
[2016-12-25] MEDS: BUDESONIDE/FORMOTEROL 80-4.5 INHALER 6.9 GM INH SCH ×2 (08:56→21:08)
[2016-12-25] MEDS: PRASUGREL 10 MG TABLET PO SCH (09:14)
[2016-12-25] MEDS ORDERED: SODIUM CHLORIDE 0.45% 1,000 ML IV SCH (09:30)
--- NOTE | 2016-12-25 11:46 | Cardiology Progress Note ---
Assessment and Plan (1) Unstable angina Status: Resolved Assessment and plan: Patient is status post heart catheterization per Dr. Casarez with placement of 4 drug-eluting stents to LAD vein graft. Current Visit: Yes (2) Elevated troponin Status: Acute Assessment and plan: Troponin is trending downward as expected. Current Visit: Yes (3) Coronary artery disease Status: Chronic Assessment and plan: Patient has history of CABG. Status post heart catheterization yesterday with placement of 4 drug-eluting stents to LAD vein graft. Current Visit: Yes (4) Chest pain Status: Resolved Assessment and plan: Resolved. Current Visit: No (5) COPD (chronic obstructive pulmonary disease) Status: Chronic Current Visit: No (6) HLD (hyperlipidemia) Status: Chronic Assessment and plan: Continue current plan of care with statin. Current Visit: No (7) HTN (hypertension) Status: Chronic Assessment and plan: This is clinically stable. Continue current plan of care. Current Visit: No (8) Status post coronary artery bypass grafting Status: Chronic Current Visit: No (9) T2DM (type 2 diabetes mellitus) Status: Chronic Assessment and plan: Continue current plan of care. Current Visit: No (10) Ischemic cardiomyopathy Status: Chronic Current Visit: No (11) Elevated serum creatinine Status: Acute Assessment and plan: Creatinine is noted to be 1.6. Additional bag of IV fluids was given to patient today. We will transfer patient to telemetry and recheck BMP tomorrow. Patient possibly will be ready for discharge tomorrow. Current Visit: Yes Cardiology - PN: Subj Interval history: Patient is status post heart catheterization yesterday with placement of 4 drug- eluting stents to the vein graft to the LAD. Patient is doing well post-cath. He is resting in bed in no acute distress. Not requiring oxygen. He did well overnight and is without any complaints this morning. He denies chest pain, heaviness and tightness. He reports that his breathing has much improved. Right groin is soft without bleeding, hematoma and bruit. Distal pulses are 2+ . Creatinine is slightly elevated this morning at 1.6. Dr. Casarez initiated IV fluids. Troponin is trending downward as expected. We will transfer him up to telemetry and monitor him overnight. Patient will possibly be ready for discharge tomorrow. Exam (Progress Note) - Constitutional Vitals: Period Temp Pulse Resp BP Sys/Addison Pulse Ox Last 24 Hr 97.2 F-98.7 F 78-92 17-27 102-146/58-81 87-98 General appearance: normal weight, no acute distress - Head Head exam: Present: normal inspection, normocephalic, atraumatic - Neck Neck exam: Present: normal inspection. Absent: lymphadenopathy, tenderness, thyromegaly - Respiratory Respiratory exam: Present: clear to auscultation bilaterally. Absent: accessory muscle use, chest wall tenderness, rales, rhonchi, stridor, wheezes - Cardiovascular Cardiovascular exam: Present: regular rate and rhythm. Absent: carotid bruit, gallop, JVD, rubs - GI/Abdominal GI/Abdominal exam: Present: normal bowel sounds, soft. Absent: ascites, distended, firm, mass, tenderness - Extremities Exam Extremities exam: Present: normal inspection, normal capillary refill, other ( Abdomen soft without bleeding, hematoma and bruit. Distal pulses 2+.). Absent : calf tenderness, edema - Neurological Exam Neurological exam: Present: alert, oriented X3 - Psychiatric Psychiatric exam: Present: normal affect, normal mood. Absent: agitated, anxious, depressed - Skin Skin exam: Present: normal color, warm, dry. Absent: cyanosis, erythema Result/EKG - Labs CBC & BMP: 12/25/16 02:52 12/25/16 02:52 Lab Results: I have reviewed the past 24 hour labs Labs: Laboratory Results - last 24 hr 12/24/16 12/24/16 12/24/16 15:42 16:28 19:32 WBC RBC Hgb Hct MCV MCH MCHC RDW Plt Count MPV Neut % (Auto) Lymph % (Auto) Lipscomb % (Auto) Eos % (Auto) Baso % (Auto) Neut # (Auto) Lymph # (Auto) Lipscomb # (Auto) Eos # (Auto) Baso # (Auto) Immature Gran % Nucleated RBC % Immature Gran # Nucleated RBCs # Sodium Potassium Chloride Carbon Dioxide Anion Gap BUN Creatinine GFR Calculation BUN/Creatinine Ratio Glucose POC Glucose 197 H 271 H Calculated Osmolality Calcium Magnesium Troponin I 4.150 H D 12/24/16 12/25/16 12/25/16 22:26 02:52 02:52 WBC 10.8 RBC 4.72 Hgb 13.8 L Hct 41.9 L MCV 88.8 MCH 29 MCHC 32.9 RDW 13.7 Plt Count 157 MPV 12.0 Neut % (Auto) 60.8 Lymph % (Auto) 23.2 Lipscomb % (Auto) 11.9 Eos % (Auto) 2.5 Baso % (Auto) 0.5 Neut # (Auto) 6.6 Lymph # (Auto) 2.5 Lipscomb # (Auto) 1.3 H Eos # (Auto) 0.3 Baso # (Auto) 0.1 Immature Gran % 1.1 Nucleated RBC % 0.0 Immature Gran # 0.12 Nucleated RBCs # 0.00 Sodium 138 Potassium 4.9 Chloride 102 Carbon Dioxide 24 Anion Gap 16.9 H BUN 29 H Creatinine 1.60 H GFR Calculation 56 BUN/Creatinine Ratio 18.00 Glucose 203 H POC Glucose Calculated Osmolality 286.7 Calcium 8.7 Magnesium 2.5 H Troponin I 8.530 H D 12/25/16 12/25/16 12/25/16 02:52 07:23 11:17 WBC RBC Hgb Hct MCV MCH MCHC RDW Plt Count MPV Neut % (Auto) Lymph % (Auto) Lipscomb % (Auto) Eos % (Auto) Baso % (Auto) Neut # (Auto) Lymph # (Auto) Lipscomb # (Auto) Eos # (Auto) Baso # (Auto) Immature Gran % Nucleated RBC % Immature Gran # Nucleated RBCs # Sodium Potassium Chloride Carbon Dioxide Anion Gap BUN Creatinine GFR Calculation BUN/Creatinine Ratio Glucose POC Glucose 209 H 307 H Calculated Osmolality Calcium Magnesium Troponin I 7.810 H Quality Measures - VTE Contraindication to Pharmacological VTE Prophylaxis: Already on Theraputic Agent , No Prophylaxis Needed Specialty Discharge - Follow Up or Referrals
--- NOTE | 2016-12-25 17:31 | ECHO Report ---
Sony Lawrence Exam Date: 12/25/2016 07:53 Referring Physician: Technologist: Kathy Adam Age: 71 Ht (in): 73 Wt (lb): 228 Gender: M Exam Location: [facility] Echo Indications: CAD, Post Cath, elevated troponin, dyspnea BP: 119 / 76 HR: 84 Rhythm: Sinus Technical Quality: Good IMPRESSIONS Mild concentric left ventricular hypertrophy. Left ventricular ejection fraction is estimated at 45-50 %.moderately increased upper septal thickness. Mildly increased left ventricular cavity size. Anterolateral HK , apical AK. Mild mitral valve regurgitation. Mild aortic valve sclerosis without stenosis or regurgitation. Mild - moderate tricuspid valve regurgitation. Tricuspid regurgitation velocities suggest a PAP of 27.7 mmHg + RAP. MEASUREMENTS (Male / Female) Normal Values 2D ECHO LV Diastolic Diameter PLAX 4.4 cm 4.2 - 5.9 / 3.9 - 5.3 cm LV Systolic Diameter PLAX 2.6 cm LV Fractional Shortening PLAX 41.4 % IVS Diastolic Thickness 1.5 cm 0.6 - 1.0 / 0.6 - 0.9 cm LVPW Diastolic Thickness 1.4 cm 0.6 - 1.0 / 0.6 - 0.9 cm RV Internal Dim ED PLAX 2.6 cm Aortic Root Diameter 2.4 cm LA Systolic Diameter LX 4.3 cm 3.0 - 4.0 / 2.7 - 3.8 cm DOPPLER TR Peak Velocity 263.0 cm/s TR Peak Gradient 27.7 mmHg FINDINGS Left Ventricle Mildly increased left ventricular cavity size. Mild concentric left ventricular hypertrophy.left ventricular ejection fraction is estimated at 45-50 %.moderately increased upper septal thickness. anterolateral HK , apical AK Right Ventricle Normal right ventricular size. Right Atrium Normal right atrial size. Left Atrium Normal left atrial size. Mitral Valve Mild mitral valve sclerosis. Mild mitral valve regurgitation. Aortic Valve Mild aortic valve sclerosis without stenosis or regurgitation. Tricuspid Valve Morphologically normal tricuspid valve. Mild - moderate tricuspid valve regurgitation. Tricuspid regurgitation velocities suggest a PAP of 27.7 mmHg + RAP. Pulmonic Valve Morphologically normal pulmonic valve. Pericardium No pericardial effusion. Aorta Normal size aortic root and proximal ascending aorta. Leland Suero MD (Electronically Signed) Final Date: 25 December 2016 17:18
[2016-12-25] MEDS: ATORVASTATIN 80 MG TABLET PO SCH (21:04)
[2016-12-26] MEDS: ALBUTEROL/IPRATROPIUM 3 ML NEB RESP TX SCH ×3 (00:01→07:20)
[2016-12-26 06:06] LABS: Basophils % 0.4 % (0.0-0.8); Eosinophils # 0.3 10*3/uL (0.0-0.87); Eosinophils % 2.7 % (0.00-10.9); Hematocrit 42.5 VOL% (42.0-52.0); Hemoglobin 13.8 GM/DL (14.0-18.0); Immature Granulocytes % 0.9 %; Immature Granulocytes Absolute 0.09 #; Lymphocytes # 1.7 10*3/uL (1.4-4.0); Lymphocytes % 16.4 % (21.2-54.2); Mean Corpuscular HGB Conc 32.5 GM/DL (32-36); Mean Corpuscular Hemoglobin 29 PG (27-34); Mean Platelet Volume 11.9 FL (9.6-12.0); Monocytes # 1.1 10*3/uL (0.11-0.8); Monocytes % 10.7 % (1.7-12.7); Neutrophils # 6.9 10*3/uL (1.4-7.4); Neutrophils % 68.9 % (38.7-73.9); Platelet Count 166 T/CUMM (130-400); Red Blood Count 4.72 MC/CUMM (3.8-5.5); Red Cell Distribution Width 13.2 % (9.3-17.3); White Blood Count 10.1 T/CUMM (4-12)
[2016-12-26 06:35] LABS: Calcium 8.8 MG/DL (8.5-10.1); Magnesium 2.5 MG/DL (1.8-2.4); Osmolality,Calculated 295.5 MOS/KG (273-304); Potassium 5.2 MMOL/L (3.5-5.1)
[2016-12-26] MEDS: INSULIN LISPRO 100 UNIT/ML SUBCUT SCH (08:43)
[2016-12-26] MEDS: RANOLAZINE 500 MG TABLET PO SCH (08:44)
[2016-12-26] MEDS: CILOSTAZOL 50 MG TABLET PO SCH (08:44)
[2016-12-26] MEDS: BISOPROLOL 5 MG TABLET PO SCH (08:44)
[2016-12-26] MEDS: amLODIPine 5 MG TABLET PO SCH (08:44)
[2016-12-26] MEDS: PANTOPRAZOLE 40 MG TABLET PO SCH (08:44)
[2016-12-26] MEDS: PRASUGREL 10 MG TABLET PO SCH (08:44)
[2016-12-26] MEDS: ISOSORBIDE MONONITRATE 60 MG TABLET PO SCH (08:44)
[2016-12-26] MEDS: MAGNESIUM OXIDE 400 MG TABLET PO SCH (08:45)
[2016-12-26] MEDS: LISINOPRIL 5 MG TABLET PO SCH (08:45)
[2016-12-26] MEDS: ASPIRIN EC 81 MG TABLET PO SCH (08:45)
[2016-12-26] MEDS: LEVOTHYROXINE 150 MCG TABLET PO SCH (08:45)
[2016-12-26] MEDS: BUDESONIDE/FORMOTEROL 80-4.5 INHALER 6.9 GM INH SCH (08:45)
[2016-12-26] MEDS: MONTELUKAST 10 MG TABLET PO SCH (08:45)
--- NOTE | 2016-12-26 08:59 | Discharge Summary ---
Addendum entered and electronically signed by Quita Calvo NP 12/26/16 12: 28: Also, patient's pharamcy called second time after patient was discharged from hospital to state the Pletal 50mg orally BID would require pre-authorization. I have informed [facility] of this and they will discuss/handle Thursday morning. Addendum entered and electronically signed by Quita Calvo NP 12/26/16 11: 12: After discharge, pharmacy called and stated Effient would need prior authorization. He has recently picked up Plavix 75mg orally daily (90 day supply) and he will continue this. Will defer to Dr. Nunez for further management.) Original Note: Hospital Course - Hospital Course Hospital Course: Mr. Lawrence is a 71 year old male who is routinely followed by Dr. Nunez. 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 He has history of coronary artery disease, ischemic cardiomyopathy, chronic obstructive pulmonary disease, type 2 diabetes, hyperlipidemia, hypertension, prior coronary artery bypass grafting ( 1995 & 1999). He has risk factors significant for: Personal history, age, sedentary lifestyle, hypertension, hyperlipidemia, former smoker. He reports he quit smoking 10-15 years ago but previously smoked for approximately 40-50 years. He presented to the emergency department at [facility] 2016 with complaints of shortness of breath and chest discomfort. He was taken to the cardiac catheterization lab December 24, 2016 for elective cardiac catheterization performed by Dr. Casarez the following noted: Assessment: 1. In segment and in-stent restenosis of previously deployed drug-eluting stents and saphenous vein graft to the LAD with NOMI 0 flow and 1% occlusion pre - PCI status post PCI with multiple long drug-eluting stents with NOMI- 3 flow and angiographically less than 10% residual stenosis 2. Mildly increased left ventricular end-diastolic pressure Implants: Overlapping drug-eluting stents in the saphenous vein graft to the LAD as below distal to proximal: 3.0 X 38 mm Xience Alpine drug-eluting stent 3.5 x 38 mm Xience Alpine drug-eluting stent 3.0 x 33 mm Xience Alpine drug-eluting stent 3.5 x 23 mm Xience Alpine drug-eluting stent PLAN: 1. Escalate dual antiplatelet therapy 2. Add dipyridamole 3. Medical management for remaining coronary artery disease 4. Aggressive statin medication 5. Cardiac rehabilitation Plan/recommendation: Continue a trial of the Effient, low-dose aspirin, and cilostazol. Hopefully to reduce his risk of having recurrent thrombosis/ restenosis of the vein graft. May even consider adding a very low dose of Xarelto, 2.5 mg daily, to help reduce his risk of thrombosis within this graft with so many stent and so much mental-we will defer that to Dr. Nunez. Patient tolerated the procedure well and without complication and was returned to our ICU in stable condition. His troponin did elevate overnight post multiple PCI's as expected. His creatinine did increase minimally, and seemed to peak at, 1.6. We will have labs arranged to be drawn Thursday, December 29, 2016 at [facility] to include a BMP. I have personally discussed this with Jade Marlow RN. If creatinine is 1.4 or less it will be safe to restart his Metformin 500 mg 1 p.o. 3 times daily with meals. In the meantime, we will continue to hold his metformin and increase his insulin regimen in the interim from 74 units each morning to 78 units subcu each morning. Evening dose of Novolin 70/30 will be increased from 62 units subcu to 68 units subcu. We are also arranging for an appointment with Dr. Dominique Cueto next week and will forward this information to to her in order for her to treat his diabetes given the recent elevation of his creatinine. This morning, patient is doing well. He tells me he is feeling better today than he did yesterday. He would like to be discharged home today. He will be given a follow-up appointment with Dr. Nunez in 2 weeks. Also, we discussed the possibility of sleep apnea. Patient does snore heavily, has a moderately small airway (Malampati Airway Class II.) Next circumference is greater than 44 cm. I will defer recommendations and management to Dr. Nunez's regarding referral for sleep apnea testing per patient request. Original Note: - Time spent with patient Time with patient DS: Greater than 30 minutes Diagnosis - Discharge Diagnosis (1) Elevated serum creatinine Status: Resolved (2) Elevated troponin Status: Resolved (3) Coronary artery disease Status: Chronic (4) Unstable angina Status: Resolved (5) COPD (chronic obstructive pulmonary disease) Status: Chronic (6) HLD (hyperlipidemia) Status: Chronic (7) Ischemic cardiomyopathy Status: Chronic (8) Status post coronary artery bypass grafting Status: Chronic (9) T2DM (type 2 diabetes mellitus) Status: Chronic Specialty Discharge - Follow Up or Referrals Follow up with: Solomon Nunez MD [Physician] - 2 Weeks (F/U appointment [address] Nunez. Needs labs drawn Thursday, December 29, 2016 at [facility]: BMP. SHONNA MARLOW ) Dominique Cueto [REFERRING DOCTOR/PRACTITIONER] - Discharge Plan - Discharge Data Disposition: Disch To Home/Self Care Condition at Discharge: Stable Discharge Diet: heart healthy Activity: other (Post cath expectations) Hygiene: other (Post cath expectations) Weight Bearing at Discharge: other (Post cath expectations) Driving: other (Post cath expectations) Contact your physician if you experience:: fever over 101, Difficulty voiding, Redness or swelling, Nausea/Vomiting, Shortness of breath, Bleeding, pain uncontrolled by pain medications - Discharge Medications New Atorvastatin [Lipitor] 80 mg PO BEDTIME #30 tablet Cilostazol [Pletal] 50 mg PO BID #60 tablet Insulin NPH/Regular 70/30 [HumuLIN 70/30] 78 unit SUBCUT DAILY unit Insulin NPH/Regular 70/30 [HumuLIN 70/30] 68 unit SUBCUT BEDTIME #0 unit Prasugrel [Effient] 10 mg PO DAILY #30 tablet Furosemide Tab [Lasix Tab] 40 mg PO DAILY #30 tablet Continue Budesonide/Formoterol 80-4.5 [Symbicort 80-4.5] 2 puff INH BID Hum Insulin NPH/Reg Insulin Hm [NovoLIN 70/30] 62 unit SUBCUT BEDTIME Nitroglycerin Sl Tab [Nitrostat] 0.4 mg SL Q5M PRN PRN Reason: Chest Pain Montelukast Tab [Singulair Tab] 10 mg PO DAILY Lisinopril 5 mg PO DAILY Levothyroxine Tab [Synthroid Tab] 150 mcg PO DAILY Aspirin [Ecotrin] 81 mg PO DAILY Albuterol Sulfate [Proair HFA] 2 puff INH Q4H PRN PRN Reason: Shortness Of Breath/Wheezing Ranolazine [Ranexa] 500 mg PO BID tablet raNITIdine HCl [Ranitidine HCl] 150 mg PO BID #60 capsule Bisoprolol [Zebeta] 10 mg PO QAM Bisoprolol Fumarate 5 mg PO BEDTIME Magnesium Oxide [Magox 400] 400 mg PO BID amLODIPine [Norvasc] 5 mg PO DAILY #30 tablet Isosorbide Mononitrate [Isosorbide Mononitrate ER] 60 mg PO DAILY Discontinued Hum Insulin NPH/Reg Insulin Hm [NovoLIN 70/30] 74 unit SUBCUT DAILY Clopidogrel [Plavix] 75 mg PO DAILY metFORMIN [Glucophage] 500 mg PO TID W/MEALS - Follow Up or Referral - Forms/Instructions Instructions: Coronary Artery Disease (GEN), Left Heart Catheterization (DC), Heart Healthy Diet (GEN), Coronary Intravascular Stent Placement (DC) Exam - Constitutional Vitals: Period Temp Pulse Resp BP Sys/Addison Pulse Ox Last 24 Hr 96.8 F-98.5 F 80-99 16-24 120-143/63-73 87-99 Exam: General: [Appears well with no apparent distress.] [Pleasant and cooperative. ] [Appears comfortable.] HEENT: [PERRL, normocephalic, atraumatic. Mucous membranes moist. No jaundice noted. Conjunctiva moist and clear, sclerae anicteric] Neck: No JVD/HJR, no thyromegaly or lymphadenopathy noted. No carotid bruit appreciated Cardiac: [Regular rate and rhythm.] [No murmur rub or gallop.] Lungs: [Clear to auscultation without accessory muscle use to assist the respiratory pattern.] Not requiring oxygen. Abdomen: Soft, bowel sounds normoactive. Nontender and nondistended. No abdominal bruit or thrill noted. No masses noted. Musculoskeletal: No fluid collection. Decreased range of motion is noted. Extremities: Right groin soft and free of hematoma or bruit. No clubbing, cyanosis noted. [ No edema noted.] Upper extremity pulses 2+. Lower extremity pulses 2+. Capillary refill less than 3 seconds. Skin: No unusual lesions or rashes. No skin breakdown appreciated. Neuro: Awake, alert and oriented 3. Moves all extremities well without hemiparesis or paralysis. No essential tremor is appreciated. Discharge Results Procedures and tests throughout hospitalization: Pending Orders 12/24/16 15:30 MRSA Surveillence, Inf Control Routine Labs on day of discharge: Labs from last 24 hours 12/26/16 12/26/16 12/26/16 07:25 05:16 05:16 WBC 10.1 RBC 4.72 Hgb 13.8 L Hct 42.5 MCV 90.0 MCH 29 MCHC 32.5 RDW 13.2 Plt Count 166 MPV 11.9 Neut % (Auto) 68.9 Lymph % (Auto) 16.[address] [place] % (Auto) 10.7 Eos % (Auto) 2.7 Baso % (Auto) 0.4 Neut # (Auto) 6.9 Lymph # (Auto) 1.7 [place] # (Auto) 1.1 H Eos # (Auto) 0.3 Baso # (Auto) 0.0 Immature Gran % 0.9 Nucleated RBC % 0.0 Immature Gran # 0.09 Nucleated RBCs # 0.00 Sodium 139 Potassium 5.2 H Chloride 102 Carbon Dioxide 26 Anion Gap 16.2 H BUN 30 H Creatinine 1.60 H GFR Calculation 56 BUN/Creatinine Ratio 18.00 Glucose 326 H POC Glucose 310 H Calculated Osmolality 295.5 Calcium 8.8 Magnesium 2.5 H 12/25/16 12/25/16 12/25/16 20:14 16:27 11:17 WBC RBC Hgb Hct MCV MCH MCHC RDW Plt Count MPV Neut % (Auto) Lymph % (Auto) [place] % (Auto) Eos % (Auto) Baso % (Auto) Neut # (Auto) Lymph # (Auto) [place] # (Auto) Eos # (Auto) Baso # (Auto) Immature Gran % Nucleated RBC % Immature Gran # Nucleated RBCs # Sodium Potassium Chloride Carbon Dioxide Anion Gap BUN Creatinine GFR Calculation BUN/Creatinine Ratio Glucose POC Glucose 316 H 290 H 307 H Calculated Osmolality Calcium Magnesium - Imaging and Cardiology Cardiology Procedure: report reviewed by Procedure: Chest x-ray: report reviewed by DS: Provider Date of admission: 12/24/16 13:00 Primary care physician: . No PCP Attending physician on admission: Leland Suero MD Consults: 12/24/16 14:54 Consult to Cardiac Rehabilitation [CONS] Routine Reason for Cardiac Rehabilitation: Risk Factor Modification Discharging clinician: Quita Calvo NP Expected date of discharge: 12/26/16
[2016-12-26] MEDS ORDERED: FUROSEMIDE 40 MG TABLET PO SCH (09:00)
[2016-12-26 11:34] VITALS: BP 124/66
[2016-12-26] MEDS ORDERED: INSULIN NPH/REGULAR 70/30 100 UNIT/ML SUBCUT SCH ×2 (21:00)
[2016-12-27] MEDS ORDERED: INSULIN NPH/REGULAR 70/30 100 UNIT/ML SUBCUT SCH ×2 (09:00)
[2016-12-27] MEDS ORDERED: ASPIRIN EC 81 MG TABLET PO SCH (09:00)
== END 2016-12-26 11:35 | disposition home or self-care (01) | DRG 246 ==
LOC: N.EDINP 07:19 → N.ED 07:19 → N.CC 11:13 → N.TELEN 18:50 → N.CC 12-24 15:32 → N.TELES 12-25 14:50
PROVIDERS: ADMIT Internal Medicine Cardiovascular Disease; ATTEND Internal Medicine Cardiovascular Disease

== ENCOUNTER 2017-03-14 02:40 | Inpatient (IN) ==
[2017-03-14 03:13] LABS: Basophils % 0.5 % (0.0-0.8); Eosinophils # 0.2 10*3/uL (0.0-0.87); Eosinophils % 1.9 % (0.00-10.9); Hemoglobin 14.3 GM/DL (14.0-18.0); Immature Granulocytes % 0.9 %; Immature Granulocytes Absolute 0.08 #; Lymphocytes # 2.1 10*3/uL (1.4-4.0); Lymphocytes % 25.1 % (21.2-54.2); Mean Corpuscular Hemoglobin 30 PG (27-34); Mean Corpuscular Volume 88.8 FL (87-102); Mean Platelet Volume 10.7 FL (9.6-12.0); Monocytes # 0.8 10*3/uL (0.11-0.8); Monocytes % 9.4 % (1.7-12.7); Neutrophils # 5.3 10*3/uL (1.4-7.4); Neutrophils % 62.2 % (38.7-73.9); Platelet Count 183 T/CUMM (130-400); Red Blood Count 4.73 MC/CUMM (3.8-5.5); Red Cell Distribution Width 13.4 % (9.3-17.3); White Blood Count 8.5 T/CUMM (4-12)
--- NOTE | 2017-03-14 03:15 | Emergency Department Note ---
IElliott Brittany, am scribing for, and in the presence of, Nicki Rios DO 03:09. IGabriel Debra, DO, personally performed the services described in this documentation, ascribed by Aundrea Gallagher in my presence, and it is both accurate and complete . Arrival - Arrival Chief Complaint: Chest Pain Stated Complaint: thinks hes having heart attack ED Nursing Triage Note: pt to triage via wc with c/o left sided chest pain that radiates to his neck and right arm, nausea with no vomiting.. states chewed a aspirin and took two nitro sub-ling with no relief. Mode of Arrival: Wheelchair Limitations: No Limitations Source: Patient, RN Notes Reviewed - History of Present Illness HPI Narrative: Patient is a 72 y/o white male presenting to the ED with c/o left sided chest pain with an onset of 2230. Patient reports that he went out to eat tonight and had a steak dinner, he then proceeded to go home and watch the game, upon bedtime around 2230 chest pain onset. He describes this pain as beginning in the left chest wall, radiating into the right arm and his neck. He has had some associated diaphoresis, clamminess, nausea, but no vomiting, shortness of breath , edema of the lower extremities, or vertigo. Patient reports that he took an ASA and 2 Nitroglycerin with no relief initially, in room at this time patient denies any pain. Patient reports that he waited until now, 4 hours post initial onset of pain to seek medical attention due to thinking that medicinal intervention would've resolved his pain and improved his symptoms. He reports that he has a history of CABG x2, once in 1995 and again in [address] Casarez. He notes that recently he had a Cardiac Catheterization on 12/24/[address] Casarez and was noted to have an in-stent restenosis so there was PCI stent placement. Patient is a former smoker, cessation was about 10-15 years ago. Patient has no other complaint/pain. Allergies/Adverse Reactions: Allergies Allergy/AdvReac Type Severity Reaction Status Date / Time No Known Allergies Allergy Verified 11/11/16 11:33 Home Medications: Home Medications Medication Instructions Recorded Confirmed Type Aspirin [Ecotrin] 81 mg PO DAILY 11/28/15 03/14/17 History Budesonide/Formoterol 80-4.5 2 puff INH BID 11/28/15 03/14/17 History [Symbicort 80-4.5] Insulin NPH Hum/Reg Insulin Hm 62 unit SUBCUT BEDTIME 11/28/15 03/14/17 History [NovoLIN 70/30] Levothyroxine Tab [Synthroid Tab] 150 mcg PO DAILY 11/28/15 03/14/17 History Lisinopril 5 mg PO DAILY 11/28/15 03/14/17 History Montelukast Tab [Singulair Tab] 10 mg PO DAILY 11/28/15 03/14/17 History Nitroglycerin Sl Tab [Nitrostat] 0.4 mg SL Q5M PRN 11/28/15 03/14/17 History Magnesium Oxide [Magox 400] 400 mg PO BID 11/11/16 03/14/17 History Albuterol Sulfate [Proair HFA] 2 puff INH Q4H PRN 11/22/16 03/14/17 History Ranolazine [Ranexa] 500 mg PO BID tablet 11/23/16 03/14/17 Rx amLODIPine [Norvasc] 5 mg PO DAILY #30 tablet 11/23/16 03/14/17 Rx raNITIdine HCl [Ranitidine HCl] 150 mg PO BID #60 capsule 11/23/16 03/14/17 Rx Bisoprolol Fumarate 5 mg PO BEDTIME 12/23/16 03/14/17 History Bisoprolol [Zebeta] 10 mg PO QAM 12/23/16 03/14/17 History Isosorbide Mononitrate [Isosorbide 60 mg PO DAILY 12/23/16 03/14/17 History Mononitrate ER] Atorvastatin [Lipitor] 80 mg PO BEDTIME #30 tablet 12/26/16 03/14/17 Rx Cilostazol [Pletal] 50 mg PO BID #60 tablet 12/26/16 03/14/17 Rx Furosemide Tab [Lasix Tab] 40 mg PO DAILY #30 tablet 12/26/16 03/14/17 Rx Insulin NPH/Regular 70/30 [HumuLIN 68 unit SUBCUT BEDTIME #0 unit 12/26/1603/14 Rx 70/30] Insulin NPH/Regular 70/30 [HumuLIN 78 unit SUBCUT DAILY unit 12/26/16 03/14/17 Rx 70/30] Prasugrel [Effient] 10 mg PO DAILY #30 tablet 12/26/16 03/14/17 Rx Review of System - Review of System 12 point system: reviewed and no additional remarkable complaints except as stated - Review of System Constitutional: Present: diaphoresis. Absent: chills, fever Eyes: Absent: vision change Head/Ears/Nose/Throat: Absent: nasal drainage, sore throat Respiratory: Absent: respiratory distress Cardiovascular: Present: chest pain Gastrointestinal: Present: nausea. Absent: abdominal pain, vomiting Genitourinary male: Absent: urgency, dysuria, frequency Musculoskeletal: Present: arm pain, neck pain. Absent: back pain, leg pain Skin: Absent: rash Neurological: Absent: headache Psychiatric: Absent: anxiety, depression Medical,Surgical,& Family Hx - Medical History Cardio: History of: CAD, Hypertension, Cardiovascular Problems No history of: Aneurysm, Cardiac Dysrhythmia, Congenital Heart Disease, OR, Pacemaker, PVD Psychological: No history of: Bipolar Disorder, Depression, Previous Suicide Attempt Neurology: No history of: Seizures Endocrine: History of: Diabetes Mellitus (IDDM), Dyslipidemia, Thyroid Disorder Respiratory: History of: COPD No history of: Asthma, Bronchitis, Obstructive Sleep Apnea Musculoskeletal: No history of: Amputation Hematology: No history of: Blood Transfusion Reaction, Blood Disorders - Surgical History Cardiac Surgeries: Sugical HX of: Cardiac Catheterization (stents x's 5), Cardiac Surgery (CABG 1995, 1999) Patient Denies: Femoral-Popliteal Bypass Graft, Carotid Endarterectomy, Internal Defibrillator, Vascular Access Devices Thoracic Surgeries: Patient denies;: Organ Transplant, Lobectomy HEENT Surgeries: Surgical HX of: Tonsilectomy & Adenoidectomy Patient denies: Carotid Endarterectomy Abdominal Surgeries: Patient denies: Abdominal Surgery, Appendectomy, Cholecystectomy, Hernia Repair, Splenectomy - Family History Family History: Reports;: Family Diabetes (mother), Family Heart Disease (mother ) Denies;: Family Hypertension, Family Psychiatric Problems, Family Stroke - Social History Smoking Status: Former smoker Frequency of Alcohol Use: None Type of Drug Use: None Exam Vital Signs: Vital Signs Temperature 96.7 F L 03/14/17 02:42 Pulse Rate 82 03/14/17 03:53 Respiratory Rate 20 03/14/17 03:53 Blood Pressure 151/86 03/14/17 03:53 O2 Sat by Pulse Oximetry 98 03/14/17 03:53 - General General appearance: alert, in no apparent distress - Head Head exam: Present: atraumatic, normocephalic, normal inspection - Eye Eye exam: Present: normal appearance, PERRL, EOMI - ENT ENT exam: Present: normal exam, normal oropharynx - Neck Neck exam: Present: normal inspection, full ROM, trachea midline - Chest Chest inspection: Present: symmetric chest wall rise. Absent: normal inspection (scar consistent with prior CABG) - Respiratory Respiratory exam: Present: normal lung sounds bilaterally - Cardiovascular Cardiovascular exam: Present: regular rate, normal rhythm, normal heart sounds - Abdominal Exam Abdominal exam: Present: soft, normal bowel sounds - Extremities Exam Extremities exam: Present: normal inspection. Absent: pedal edema - Back Exam Back exam: Present: normal inspection - Neurological Exam Neurological exam: Present: alert, oriented X3, CN II-XII intact. Absent: motor sensory deficit - Psychiatric Psychiatric exam: Present: normal affect, normal mood - Skin Skin exam: Present: warm, dry, intact, normal color Course Course Narrative: spoke with DR Suero who will admit pt for DR Nunez Results - Labs CBC & BMP: 03/14/17 02:52 03/14/17 02:52 Lab Results: I have reviewed the patients labs Labs: Laboratory Tests 03/14/17 02:52 WBC 8.5 RBC 4.73 Hgb 14.3 Hct 42.0 Plt Count 183 Laboratory Tests 03/14/17 02:52 INR 0.9 PT Patient/Control Mix 9.9 Circ Anticoag PTT 31.7 Laboratory Tests 03/14/17 02:52 Sodium 141 Potassium 4.0 Chloride 106 Carbon Dioxide 26 BUN 23 H Creatinine 1.50 H Glucose 153 H Troponin I 0.115 H - EKG EKG results: interpreted by ERMD, no acute changes - Diagnostic Findings Procedure: Chest x-ray: image reviewed by me (mild pulmonary congestion) Disposition Clinical Impression: Chest pain Case discussed with: patient, patient's family Disposition: Still a Patient Condition: Stable Time of Disposition: 04:06
[2017-03-14 03:19] LABS: INR 0.9; PT Patient Result 9.9 SECS; Partial Thromboplastin Time 31.7 SECS (0-40)
[2017-03-14 03:35] LABS: Alanine Aminotransferase 41 U/L (16-61); Albumin 3.7 G/DL (3.4-5.0); Alkaline Phosphatase 69 U/L (45-117); Aspartate Amino Transferase 25 U/L (0-37); Blood Urea Nitrogen 23 MG/DL (7-18); Calcium 8.9 MG/DL (8.5-10.1); Glucose 153 MG/DL (74-106); Osmolality,Calculated 287.3 MOS/KG (273-304); Sodium 141 MMOL/L (136-145); Total Protein 6.7 G/DL (6.4-8.3)
[2017-03-14 03:49] LABS: Troponin I Only 0.115 NG/ML (0.00-0.045)
[2017-03-14] MEDS ORDERED: ENOXAPARIN 100 MG/ML SYRINGE SUBCUT STA (04:02)
[2017-03-14] MEDS ORDERED: ENOXAPARIN 100 MG/ML SYRINGE SUBCUT ONE (04:05)
[2017-03-14] MEDS ORDERED: ZALEPLON 5 MG CAPSULE PO PRN (04:07)
[2017-03-14] MEDS ORDERED: MAGNESIUM SULF RIDER 4 GM in PREMIX 1 EACH IV PRN (04:07)
[2017-03-14] MEDS ORDERED: ONDANSETRON 4 MG/2 ML VIAL IV PRN (04:07)
[2017-03-14] MEDS ORDERED: MAGNESIUM SULF RIDER 2 GM in PREMIX 1 EACH IV PRN ×2 (04:07→10:15)
--- NOTE | 2017-03-14 04:12 | EKG Report ---
Stationary ECG Study [facility] ER Test Date: 03/14/2017 2:55:11 AM Pat Name: LIONEL PEREZ Department: Room: Gender: M Receiving Operator: : 1945 Requested by: Nicki Rios Order Number: [id number] Reading MD: LINDSEY HERNÁNDEZ Intervals Dodge Rate: 85 P: 76 WI: 173 QRS: 74 QRSD: 106 T: 131 QT: 362 QTc: 404 Interpretive Statements SINUS RHYTHM WITH OCCASIONAL VENTRICULAR PREMATURE COMPLEXES ST DEVIATION AND MODERATE T-WAVE ABNORMALITY, CONSIDER LATERAL ISCHEMIA Electronically Signed On 03-15-17 15:32:39 CDT by LINDSEY HERNÁNDEZ [email or web address]
[2017-03-14 06:16] LABS: CKMB % 4.6 %
[2017-03-14 06:23] LABS: Troponin I Only 0.57 NG/ML (0.00-0.045)
--- NOTE | 2017-03-14 07:03 | XRay Report ---
Single view of the chest. Indication: Shortness of breath. Comparison: December 23, 2016. The heart is normal in size. Post median sternotomy. The pulmonary vasculature is prominent. The interstitial lung markings are mildly prominent. Patchy infiltrates seen previously have cleared. No pneumothorax. No pleural effusion. Impression: Chronic lung changes. Mild venous congestion. PROCEDURE INTERPRETED AT [facility] Final Report Signed by: Dr. Paulette Tesfaye
[2017-03-14 07:44] LABS: CKMB % 5.5 %
[2017-03-14 07:45] LABS: Troponin I Only 0.944 NG/ML (0.00-0.045)
[2017-03-14] MEDS ORDERED: NITROGLYCERIN SL 0.4 MG TABLET SL PRN (09:36)
[2017-03-14] MEDS ORDERED: ALBUTEROL 2.5 MG/3 ML NEB RESP TX PRN (09:36)
--- NOTE | 2017-03-14 10:12 | Cardiology History & Physical ---
Assessment and Plan (1) Dyspnea on exertion Status: Acute Current Visit: No (2) Unstable angina pectoris Status: Acute Assessment and plan: Our plan will be to proceed with cardiac catheterization. We will have him settle down on medications if that is possible and he certainly is stable currently. We will plan on catheterization and probable PCI tomorrow depending on what we find. Need with him the details the risks benefits and alternatives of the procedure. He appears to understand these is explained and is agreeable to proceeding. Current Visit: No (3) Coronary artery disease Status: Chronic Current Visit: No (4) HTN (hypertension) Status: Chronic Current Visit: No (5) Ischemic cardiomyopathy Status: Chronic Current Visit: No (6) Status post coronary artery bypass grafting Status: Chronic Current Visit: No History of Present Illness Chief complaint: I have been hurting in my chest pretty severely last night and it is easing History of present illness: Mr. Lawrence is a 72 year old male who has an ischemic cardiomyopathy EF in the 45- 50% range. He has a history of multivessel coronary bypass grafting done 2004 he has had 2 different bypass procedures 1 with MARILU graft to his LAD which failed the second was a vein graft to the LAD he has had stenting of his mid right as well as his LAD graft done in 2010. In December 2015 he underwent repeat invasive evaluation which reveals severe [place] multivessel coronary disease with a significant stenosis of the circumflex and LAD grafts and was taken to percutaneous intervention with a good angiographic result. In December 2016 he underwent reevaluation for a non-ST elevation myocardial infarction and had stenting of a saphenous vein graft to the LAD involving multiple long stents. He has done well since that time and presents now with an episode of chest discomfort. His troponin is risen to 0.9 which is likely consistent with acute coronary syndrome and we are going to settle him down and have him undergo repeat cardiac evaluation with catheterization likely in the next 24 hours or so. He is currently pain-free. He had severe pain last night he says is resolved. Home Medications Medication Instructions Recorded Confirmed Type Aspirin [Ecotrin] 81 mg PO DAILY 11/28/15 03/14/17 History Budesonide/Formoterol 80-4.5 2 puff INH BID 11/28/15 03/14/17 History [Symbicort 80-4.5] Insulin NPH Hum/Reg Insulin Hm 62 unit SUBCUT BEDTIME 11/28/15 03/14/17 History [NovoLIN 70/30] Levothyroxine Tab [Synthroid Tab] 150 mcg PO DAILY 11/28/15 03/14/17 History Lisinopril 5 mg PO DAILY 11/28/15 03/14/17 History Montelukast Tab [Singulair Tab] 10 mg PO DAILY 11/28/15 03/14/17 History Nitroglycerin Sl Tab [Nitrostat] 0.4 mg SL Q5M PRN 11/28/15 03/14/17 History Magnesium Oxide [Magox 400] 400 mg PO BID 11/11/16 03/14/17 History Albuterol Sulfate [Proair HFA] 2 puff INH Q4H PRN 11/22/16 03/14/17 History Ranolazine [Ranexa] 500 mg PO BID tablet 11/23/16 03/14/17 Rx amLODIPine [Norvasc] 5 mg PO DAILY #30 tablet 11/23/16 03/14/17 Rx raNITIdine HCl [Ranitidine HCl] 150 mg PO BID #60 capsule 11/23/16 03/14/17 Rx Bisoprolol Fumarate 5 mg PO BEDTIME 12/23/16 03/14/17 History Bisoprolol [Zebeta] 10 mg PO QAM 12/23/16 03/14/17 History Isosorbide Mononitrate [Isosorbide 60 mg PO DAILY 12/23/16 03/14/17 History Mononitrate ER] Atorvastatin [Lipitor] 80 mg PO BEDTIME #30 tablet 12/26/16 03/14/17 Rx Cilostazol [Pletal] 50 mg PO BID #60 tablet 12/26/16 03/14/17 Rx Furosemide Tab [Lasix Tab] 40 mg PO DAILY #30 tablet 12/26/16 03/14/17 Rx Insulin NPH/Regular 70/30 [HumuLIN 68 unit SUBCUT BEDTIME #0 unit 12/26/1603/14 Rx 70/30] Insulin NPH/Regular 70/30 [HumuLIN 78 unit SUBCUT DAILY unit 12/26/16 03/14/17 Rx 70/30] Prasugrel [Effient] 10 mg PO DAILY #30 tablet 12/26/16 03/14/17 Rx Allergies Allergy/AdvReac Type Severity Reaction Status Date / Time No Known Allergies Allergy Verified 11/11/16 11:33 Medical,Surgical,& Family Hx - Medical History Cardio: History of: CAD, Hypertension, Cardiovascular Problems No history of: Aneurysm, Cardiac Dysrhythmia, Congenital Heart Disease, RI, Pacemaker, PVD Psychological: No history of: Bipolar Disorder, Depression, Previous Suicide Attempt Neurology: No history of: Seizures Endocrine: History of: Diabetes Mellitus (IDDM), Dyslipidemia, Thyroid Disorder Respiratory: History of: COPD No history of: Asthma, Bronchitis, Obstructive Sleep Apnea Genitourinary: History of: Kidney Stones (1986) Musculoskeletal: No history of: Amputation Hematology: No history of: Blood Transfusion Reaction, Blood Disorders - Surgical History Cardiac Surgeries: Sugical HX of: Cardiac Catheterization (stents x's ), Cardiac Surgery (CABG 1995, 1999) Patient Denies: Femoral-Popliteal Bypass Graft, Carotid Endarterectomy, Internal Defibrillator, Vascular Access Devices Thoracic Surgeries: Patient denies;: Organ Transplant, Lobectomy Neurologic Surgeries: Patient denies: Neurologic Surgery HEENT Surgeries: Surgical HX of: Tonsilectomy & Adenoidectomy Patient denies: Carotid Endarterectomy Abdominal Surgeries: Patient denies: Abdominal Surgery, Appendectomy, Cholecystectomy, Hernia Repair, Splenectomy Reproductive Surgeries: Patient denies;: Genitourinary Surgery - Family History Family History: Reports;: Family Diabetes (mother), Family Heart Disease (mother ) Denies;: Family Hypertension, Family Psychiatric Problems, Family Stroke - Social History Smoking Status: Former smoker Frequency of Alcohol Use: None Type of Drug Use: None Cardiology Physical Exam - Constitutional Vitals: Vital Signs Temp Pulse Resp BP Pulse Ox 97.4 F L 73 16 148/63 98 03/14/17 07:51 03/14/17 07:51 03/14/17 08:25 03/14/17 07:51 03/14/17 07:51 Intake and Output 03/13/17 03/14/17 03/14/17 23:59 07:59 15:59 Other: Voiding Method Toilet # Voids 1 Weight 102.058 kg Patient Weight 03/14/17 23:59 Weight 102.058 kg Exam: Physical examination: General: The patient is awake and alert and oriented -3. Mood and affect are normal. HEENT: Normocephalic, sclera are clear there are no lid xanthelasmas noted. Oral mucosa is free of cyanosis or pallor. Neck: The neck is supple without JVD. Carotid upstrokes are normal volume and amplitude. There is no audible bruit. There is no palpable thyroid. Trachea is midline. Chest: Lungs: The patient is comfortable at rest without intercostal retractions or abdominal breathing. There are no adventitial sounds rales rubs rhonchi or wheezes noted. Cardiovascular: The PMI is nondisplaced. No palpable thrill S3 or S4. There is a regular rate and rhythm with no murmur rub or gallop noted. Dorsalis pedis posterior tibial pulses are 1+ and equal and femoral pulses are 2+ and equal bilaterally. Abdomen: Abdomen is soft and nontender with normal active bowel sounds. There is no palpable mass or organomegaly noted. There is no midline bruit. Extremities exam: There is no cyanosis clubbing or edema. Skin: Skin is warm and dry without ecchymosis or urticaria or skin rash. There are no palpable nodules. Musculoskeletal: There is no kyphosis or scoliosis noted. Result/EKG - Labs CBC & BMP: 03/14/17 02:52 03/14/17 02:52 Labs: Laboratory Results - last 24 hr 03/14/17 03/14/17 03/14/17 02:52 02:52 02:52 WBC 8.5 RBC 4.73 Hgb 14.3 Hct 42.0 MCV 88.8 MCH 30 MCHC 34.0 RDW 13.4 Plt Count 183 MPV 10.7 Neut % (Auto) 62.2 Lymph % (Auto) 25.1 [place] % (Auto) 9.4 Eos % (Auto) 1.9 Baso % (Auto) 0.5 Neut # (Auto) 5.3 Lymph # (Auto) 2.1 [place] # (Auto) 0.8 Eos # (Auto) 0.2 Baso # (Auto) 0.0 Immature Gran % 0.9 Nucleated RBC % 0.0 Immature Gran # 0.08 Nucleated RBCs # 0.00 INR 0.9 PT Patient/Control Mix 9.9 Circ Anticoag PTT 31.7 Sodium 141 Potassium 4.0 Chloride 106 Carbon Dioxide 26 Anion Gap 13.0 BUN 23 H Creatinine 1.50 H GFR Calculation 59 BUN/Creatinine Ratio 15.00 Glucose 153 H Calculated Osmolality 287.3 Calcium 8.9 Total Bilirubin 0.60 AST 25 ALT 41 Alkaline Phosphatase 69 Total Creatine Kinase 149 CK-MB (CK-2) 3.5 CK and CKMB Interp Troponin I 0.115 H B-Natriuretic Peptide Total Protein 6.7 Albumin 3.7 Globulin 3.0 Albumin/Globulin Ratio 1.2 03/14/17 03/14/17 03/14/17 02:52 05:27 06:54 WBC RBC Hgb Hct MCV MCH MCHC RDW Plt Count MPV Neut % (Auto) Lymph % (Auto) [place] % (Auto) Eos % (Auto) Baso % (Auto) Neut # (Auto) Lymph # (Auto) [place] # (Auto) Eos # (Auto) Baso # (Auto) Immature Gran % Nucleated RBC % Immature Gran # Nucleated RBCs # INR PT Patient/Control Mix Circ Anticoag PTT Sodium Potassium Chloride Carbon Dioxide Anion Gap BUN Creatinine GFR Calculation BUN/Creatinine Ratio Glucose Calculated Osmolality Calcium Total Bilirubin AST ALT Alkaline Phosphatase Total Creatine Kinase 160 182 CK-MB (CK-2) 7.3 H 10.1 H CK and CKMB Interp 4.6 5.5 Troponin I 0.570 H D 0.944 H D B-Natriuretic Peptide 43 Total Protein Albumin Globulin Albumin/Globulin Ratio
[2017-03-14] MEDS ORDERED: diphenhydrAMINE CAP 25 MG CAPSULE PO ONE (10:15)
[2017-03-14] MEDS ORDERED: POTASSIUM CHLORIDE RIDER 10 MEQ in PREMIX 1 EACH IV PRN (10:15)
[2017-03-14] MEDS ORDERED: DIAZEPAM 5 MG TABLET PO ONE (10:15)
[2017-03-14] MEDS: BISOPROLOL 5 MG TABLET PO SCH ×2 (10:19→20:57)
[2017-03-14] MEDS: MONTELUKAST 10 MG TABLET PO SCH (10:20)
[2017-03-14] MEDS: ISOSORBIDE MONONITRATE 60 MG TABLET PO SCH (10:20)
[2017-03-14] MEDS: amLODIPine 5 MG TABLET PO SCH (10:20)
[2017-03-14] MEDS: RANOLAZINE 500 MG TABLET PO SCH ×2 (10:20→20:57)
[2017-03-14] MEDS: ASPIRIN EC 81 MG TABLET PO SCH (10:20)
[2017-03-14] MEDS: PRASUGREL 10 MG TABLET PO SCH (10:20)
[2017-03-14] MEDS: LEVOTHYROXINE 150 MCG TABLET PO SCH (10:20)
[2017-03-14] MEDS: FUROSEMIDE 40 MG TABLET PO SCH (10:20)
[2017-03-14] MEDS: MAGNESIUM OXIDE 400 MG TABLET PO SCH ×2 (10:20→20:56)
[2017-03-14] MEDS: LISINOPRIL 5 MG TABLET PO SCH (10:20)
[2017-03-14] MEDS: INSULIN NPH/REGULAR 70/30 100 UNIT/ML SUBCUT SCH ×2 (10:32→20:52)
[2017-03-14] MEDS: FAMOTIDINE 20 MG TABLET PO SCH ×2 (10:37→20:56)
[2017-03-14] MEDS: SODIUM CHLORIDE 0.9% 1,000 ML IV SCH ×2 (10:37→20:34)
[2017-03-14] MEDS: ENOXAPARIN 100 MG/ML SYRINGE SUBCUT SCH ×2 (10:38→22:26)
[2017-03-14] MEDS: CILOSTAZOL 50 MG TABLET PO SCH ×2 (10:39→20:55)
[2017-03-14 11:07] LABS: CKMB % 6.7 %
[2017-03-14 11:15] LABS: Troponin I Only 1.87 NG/ML (0.00-0.045)
[2017-03-14] MEDS: BUDESONIDE/FORMOTEROL 80-4.5 INHALER 6.9 GM INH SCH ×2 (12:42→20:59)
[2017-03-14] MEDS: ATORVASTATIN 80 MG TABLET PO SCH (20:56)
[2017-03-14] MEDS ORDERED: INSULIN NPH/REGULAR 70/30 100 UNIT/ML SUBCUT SCH (21:00)
[2017-03-15 04:22] LABS: Basophils % 0.3 % (0.0-0.8); Eosinophils # 0.1 10*3/uL (0.0-0.87); Eosinophils % 1.4 % (0.00-10.9); Hematocrit 40.9 VOL% (42.0-52.0); Hemoglobin 13.9 GM/DL (14.0-18.0); Lymphocytes # 2.2 10*3/uL (1.4-4.0); Mean Corpuscular Hemoglobin 31 PG (27-34); Mean Corpuscular Volume 89.9 FL (87-102); Mean Platelet Volume 10.8 FL (9.6-12.0); Monocytes # 0.8 10*3/uL (0.11-0.8); Monocytes % 8.3 % (1.7-12.7); Neutrophils # 6.8 10*3/uL (1.4-7.4); Platelet Count 176 T/CUMM (130-400); Red Blood Count 4.55 MC/CUMM (3.8-5.5); Red Cell Distribution Width 13.4 % (9.3-17.3); White Blood Count 10.2 T/CUMM (4-12)
[2017-03-15 04:32] LABS: PT Patient Result 10.2 SECS
[2017-03-15 04:54] LABS: Calcium 8.9 MG/DL (8.5-10.1); Osmolality,Calculated 287.7 MOS/KG (273-304); Potassium 3.7 MMOL/L (3.5-5.1)
[2017-03-15] MEDS ORDERED: diphenhydrAMINE CAP 25 MG CAPSULE PO ONE (06:00)
[2017-03-15] MEDS ORDERED: DIAZEPAM 5 MG TABLET PO ONE (06:00)
--- NOTE | 2017-03-15 09:07 | EKG Report ---
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
[2017-03-15] MEDS: MAGNESIUM OXIDE 400 MG TABLET PO SCH ×2 (09:19→21:11)
[2017-03-15] MEDS: CILOSTAZOL 50 MG TABLET PO SCH (09:19)
[2017-03-15] MEDS: MONTELUKAST 10 MG TABLET PO SCH (09:19)
[2017-03-15] MEDS: BISOPROLOL 5 MG TABLET PO SCH ×2 (09:20→21:11)
[2017-03-15] MEDS: ASPIRIN EC 81 MG TABLET PO SCH (09:20)
[2017-03-15] MEDS: RANOLAZINE 500 MG TABLET PO SCH ×2 (09:20→21:10)
[2017-03-15] MEDS: PRASUGREL 10 MG TABLET PO SCH (09:20)
[2017-03-15] MEDS: FAMOTIDINE 20 MG TABLET PO SCH ×2 (09:20→21:11)
[2017-03-15] MEDS: BUDESONIDE/FORMOTEROL 80-4.5 INHALER 6.9 GM INH SCH (09:21)
[2017-03-15] MEDS: LISINOPRIL 5 MG TABLET PO SCH (09:21)
[2017-03-15] MEDS: LEVOTHYROXINE 150 MCG TABLET PO SCH (09:21)
[2017-03-15] MEDS: amLODIPine 5 MG TABLET PO SCH (09:21)
[2017-03-15] MEDS: ISOSORBIDE MONONITRATE 60 MG TABLET PO SCH (09:21)
[2017-03-15] MEDS: INSULIN NPH/REGULAR 70/30 100 UNIT/ML SUBCUT SCH ×2 (10:57→21:09)
[2017-03-15] MEDS: FUROSEMIDE 40 MG TABLET PO SCH (10:58)
[2017-03-15] MEDS: ENOXAPARIN 100 MG/ML SYRINGE SUBCUT SCH (11:00)
[2017-03-15] MEDS: SODIUM CHLORIDE 0.9% 1,000 ML IV SCH ×2 (11:34→17:00)
[2017-03-15] MEDS ORDERED: DIAZEPAM 5 MG TABLET ONE (12:05)
[2017-03-15] MEDS ORDERED: diphenhydrAMINE CAP 25 MG CAPSULE ONE (12:05)
[2017-03-15] MEDS ORDERED: LIDOCAINE 1% 20 ML VIAL ONE (12:26)
[2017-03-15] MEDS ORDERED: HEPARIN/NACL 0.9% 2 UNITS/ML 1,000 ML IV ONE (12:26)
[2017-03-15] MEDS ORDERED: MIDAZOLAM 2 MG/2 ML VIAL ONE (12:48)
[2017-03-15] MEDS ORDERED: fentaNYL 100 MCG/2 ML VIAL ONE (12:49)
--- NOTE | 2017-03-15 13:19 | History and Physical Update ---
Sedation H&P Update - History and Physical H&P was reviewed, the patient examined and there: are no changes in the patients condition since last H&P was completed. - Sedation Plan for Sedation: moderate Patient Consent: Procedure disscussed with patient and patinet has consented., Risks and benefits were discussed with patient,including infection,, bleeding, injury to surrounding structures, seizure, temporary nerve, Patient understands and accepts potential risks/benefits and agrees to, proceed. ASA Class: IV Airway Assessment: Class III: Soft palate, base of uvula visible
[2017-03-15] MEDS ORDERED: ENOXAPARIN 30 MG/0.3 ML SYRINGE ONE (13:53)
--- NOTE | 2017-03-15 14:05 | Cardiac Catheterization ---
Date of Procedure:: 03/15/17 Pre-op Diagnosis: Patient with history of multiple intracoronary stents placed in multiple places through the last 10 years or so now with a non-ST elevation OK. He had stenting of the LAD graft done in December of this year and now is with recurring chest pain and troponin elevations. Post-op diagnosis: same Procedure: Clinical summary: 72-year-old man who has had coronary bypass 2 last stent procedure was in December 2016 when he presented with an occluded LAD graft which was successfully opened. He had stenting of the graft from distal to proximal. He now presents with a non-ST elevation myocardial infarction Description of procedure: Procedure performed: 1: Left heart catheterization 2: Coronary angiography 3: Left ventriculography 4: Stenting of the proximal LAD graft at a restenotic site with a 3.5 x 15 mm Zions drug-eluting stent taken to 3.78 mm with a good angiographic result 5: Right femoral sheath angiography 6: Angio-Seal closure right femoral arteriotomy site After obtaining informed to the patient brought to the General Intern of the right groin was prepped and draped in usual sterile manner. Using intravenous sedation local anesthesia needle was inserted in the right femoral artery without difficulty and a 6 [place] sheath was positioned without difficulty. A diagnostic catheterization was undertaken using first a Ankur left 3.5 catheter followed by an [facility] right catheter. All catheter manipulations were done under fluoroscopic control with exchanges over a wire. After viewing the [place] coronary vasculature and multiple angles and after adequate angiograms were obtained these catheters were withdrawn and a coronary bypass catheter was advanced over guidewire under fluoroscopic control using her where the LAD graft was engaged. Multiple angiograms of the LAD graft were undertaken in multiple views. At this point a pigtail ventriculographic catheter was advanced over guidewire under fluoroscopic control deviation aorta and then across the aortic valve where ventriculograms obtained in the [place] projection injecting 35 cc of contrast at 12 cc/s. This catheter then was pulled back ventricle to the aorta under hemodynamic monitoring and then removed. After ascertaining a significant stenosis of the proximal graft a coronary bypass guide was used to engage the ostium of the left anterior descending graft and a 0.014 BMW wire was advanced beyond the area of stenosis and a 3.5 x 15 mm Zions drug-eluting stent was advanced to the area of stenosis deployed to a maximum 17 megan which corresponded to a balloon diameter of 3.78 mm. There was good resolution of the stenosis. There was NOMI grade III flow down the vessel noted at the end of the procedure. At this point the delivery balloon and wire were pulled back into the guide is then removed from the guide. The guide was pulled back and removed from the sheath. Patient underwent right femoral sheath angiography was demonstrated anatomy appropriate for Angio-Seal closure. This was performed without difficulty and good hemostasis was obtained. The patient tolerated the procedure well having suffered no significant immediate complications. He was transferred to the [facility] from which he came in stable condition. Hemodynamics: Please see accompanying data sheet Coronary arteriography: Left coronary artery: The left main coronary artery is well-developed with what appears to be an area of 80-90% stenosis at its origin. The [place] LAD only fills several moderate size diagonals and a small circumflex. No significant disease of these vessels can be identified. Right coronary artery: Right coronary artery is a large dominant vessel possesses no significant lesions to his course. The branches of the right coronary likewise are free of significant obstructing lesions. LAD graft: The LAD graft is noted to have intracoronary stent through its entire course. The stents stop roughly 15 mm from the distal anastomosis. In the proximal segment there is an area of 95% discrete restenosis. The remainder of the stented vessel appears to be free of significant lesions as does the distal vessel. Circumflex graft: The circumflex graft had been previously demonstrated to be occluded. Left ventriculography: After injection of contrast in the left ventricle is known to be of normal size with anterior wall hypokinesis. Overall ejection fraction measures in the 50-55 % range. No significant mitral insufficiency is appreciated. Aortic valve structures appear normal by ventriculography. Percutaneous intervention: After the above-described procedure the lesion went from roughly 95-99% stenotic to less than 0% stenotic with NOMI grade III flow down the vessel. No evidence of dissection or compromised flow could be identified. There appeared to be good sizing with good apposition of the stent to the vessel wall. Right femoral sheath angiography: After injection of contrast the right femoral arterial sheath appears in the common femoral above the bifurcation. No significant disease of the distal iliac, common femoral, or bifurcation be noted based on this limited angiographic study. Conclusions: 1: In-stent restenosis of the proximal LAD graft now treated successfully with a 3.5 x 15 mm Zions drug-eluting stent taken to 3.78 mm diameter. It appears to be with excellent flow and no evidence of residual stenosis. 2: Severe [place] multivessel coronary artery disease 3: Overall near normal LV function with mild anterior wall hypokinesis 4: Angio-Seal closure right femoral arteriotomy site Discussion and recommendations: The patient presents with early restenosis of the stented segment done in December of this year. He has received a intracoronary stent inside the stented segment with a good angiographic result. Given his history of not certain that this is a long-term success. We may have to consider surgical revascularization if this continues. We will continue aggressive antiplatelet and antianginal therapy. Our findings have been reviewed with the patient and with his family. Surgeon / Physician: Solomon Nunez Estimated blood loss: minimal Specimens: none sent Condition: stable - Medications / Follow-up
--- NOTE | 2017-03-15 14:51 | EKG Report ---
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
[2017-03-15] MEDS: ATORVASTATIN 80 MG TABLET PO SCH (21:11)
[2017-03-16] MEDS: CILOSTAZOL 50 MG TABLET PO SCH ×2 (01:47→09:21)
[2017-03-16] MEDS: BUDESONIDE/FORMOTEROL 80-4.5 INHALER 6.9 GM INH SCH ×2 (01:48→09:23)
[2017-03-16 04:04] LABS: Basophils # 0.1 10*3/uL (0.0-0.2); Basophils % 0.7 % (0.0-0.8); Eosinophils # 0.3 10*3/uL (0.0-0.87); Eosinophils % 3.4 % (0.00-10.9); Hematocrit 42.3 VOL% (42.0-52.0); Immature Granulocytes % 0.9 %; Immature Granulocytes Absolute 0.07 #; Lymphocytes # 2.1 10*3/uL (1.4-4.0); Mean Corpuscular HGB Conc 33.1 GM/DL (32-36); Mean Corpuscular Hemoglobin 30 PG (27-34); Mean Corpuscular Volume 89.4 FL (87-102); Mean Platelet Volume 10.8 FL (9.6-12.0); Monocytes # 0.8 10*3/uL (0.11-0.8); Monocytes % 10.4 % (1.7-12.7); Neutrophils # 4.2 10*3/uL (1.4-7.4); Neutrophils % 56.6 % (38.7-73.9); Platelet Count 171 T/CUMM (130-400); Red Blood Count 4.73 MC/CUMM (3.8-5.5); Red Cell Distribution Width 13.1 % (9.3-17.3); White Blood Count 7.4 T/CUMM (4-12)
[2017-03-16 04:23] LABS: Blood Urea Nitrogen 12 MG/DL (7-18); Calcium 8.8 MG/DL (8.5-10.1); Glucose 171 MG/DL (74-106); Osmolality,Calculated 284.3 MOS/KG (273-304); Potassium 3.9 MMOL/L (3.5-5.1); Sodium 141 MMOL/L (136-145)
[2017-03-16] MEDS: SODIUM CHLORIDE 0.9% 1,000 ML IV SCH (05:07)
--- NOTE | 2017-03-16 07:40 | EKG Report ---
Stationary ECG Study [facility] Test Date: 03/16/2017 7:41:33 AM Pat Name: LIONEL PEREZ Department: Room: 282 Gender: M Friend Of The Court: GM : 1945 Requested by: Solomon Nunez Order Number: [id number] Reading MD: LINDSEY HERNÁNDEZ Intervals [place] Rate: 70 P: 79 NE: 167 QRS: 63 QRSD: 99 T: 141 QT: 398 QTc: 418 Interpretive Statements SINUS RHYTHM POSSIBLE LEFT ATRIAL ENLARGEMENT ST DEVIATION AND MODERATE T-WAVE ABNORMALITY, CONSIDER ANTEROLATERAL ISCHEMIA Electronically Signed On 03-16-17 10:48:50 CDT by LINDSEY HERNÁNDEZ [email or web address]
[2017-03-16] MEDS: MONTELUKAST 10 MG TABLET PO SCH (09:16)
[2017-03-16] MEDS: RANOLAZINE 500 MG TABLET PO SCH (09:16)
[2017-03-16] MEDS: ASPIRIN EC 81 MG TABLET PO SCH (09:16)
[2017-03-16] MEDS: LEVOTHYROXINE 150 MCG TABLET PO SCH (09:16)
[2017-03-16] MEDS: amLODIPine 5 MG TABLET PO SCH (09:16)
[2017-03-16] MEDS: MAGNESIUM OXIDE 400 MG TABLET PO SCH (09:16)
[2017-03-16] MEDS: FUROSEMIDE 40 MG TABLET PO SCH (09:17)
[2017-03-16] MEDS: LISINOPRIL 5 MG TABLET PO SCH (09:17)
[2017-03-16] MEDS: INSULIN NPH/REGULAR 70/30 100 UNIT/ML SUBCUT SCH (09:17)
[2017-03-16] MEDS: PRASUGREL 10 MG TABLET PO SCH (09:17)
[2017-03-16] MEDS: FAMOTIDINE 20 MG TABLET PO SCH (09:17)
[2017-03-16] MEDS: BISOPROLOL 5 MG TABLET PO SCH (09:17)
[2017-03-16] MEDS: ISOSORBIDE MONONITRATE 60 MG TABLET PO SCH (09:17)
[2017-03-16 12:41] VITALS: BP 124/61
--- NOTE | 2017-03-16 14:11 | Discharge Summary ---
Oliva Fraser April, RN, am scribing for, and in the presence of, Malachi Rodarte MD 14:11. Hospital Course - Hospital Course Hospital Course: Mr. Lawrence is a 72 year old male who is routinely followed by Dr. Nunez with a history of ischemic cardiomyopathy EF in the 45-50% range. He has a history of multivessel coronary bypass grafting done 2005 he has had 2 different bypass procedures 1 with MARILU graft to his LAD which failed the second was a vein graft to the LAD he has had stenting of his mid right as well as his LAD graft done in 2010. In December 2015 he underwent repeat invasive evaluation which reveals severe [place] multivessel coronary disease with a significant stenosis of the circumflex and LAD grafts and was taken to percutaneous intervention with a good angiographic result. In December 2016, he underwent reevaluation for a non- ST elevation myocardial infarction and had stenting of a saphenous vein graft to the LAD involving multiple long stents. He has done well since that time and presented 03/14/2017 with an episode of chest discomfort. His troponin elevated to 0.9 which is likely consistent with acute coronary syndrome. He was pain-free at the time of initial cardiology evaluation and it was decided to cath him the following day. Heart cath done 03/15/2017 with the following findings: 1: In-stent restenosis of the proximal LAD graft now treated successfully with a 3.5 x 15 mm Xience drug-eluting stent taken to 3.78 mm diameter. It appears to be with excellent flow and no evidence of residual stenosis. 2: Severe [place] multivessel coronary artery disease 3: Overall near normal LV function with mild anterior wall hypokinesis 4: Angio-Seal closure right femoral arteriotomy site Mr. Lawrence is seen resting in bed in no acute distress. He denies any chest pain or shortness of breath. EKG this morning sinus rhythm with heart rate of 70. Troponin elevated to 1.870 on the day of admission, it has trended back down to 0.950, 0.975, and 1.010. Right groin is soft without evidence of bruising or hematoma, no bruit noted. Good pedal pulses noted bilaterally. He has had some occasional elevated blood pressures this admission, it is 168/68 this morning. RSJ: Mr. castillo's right groin site looks good with no bleeding hematoma or bruit. He feels better and being on the [place] today. We discussed avoid squatting strain or lifting. He can do short walks and will discuss with Dr. Nunez his limitation of follow-up. We discussed his need to take all his medicines were particularly his baby aspirin and Effient without fail. - Time spent with patient Time with patient DS: Less than 30 minutes Diagnosis - Discharge Diagnosis (1) Chest pain Status: Resolved (2) Coronary artery disease Status: Chronic (3) Ischemic cardiomyopathy Status: Chronic (4) Status post coronary artery bypass grafting Status: Chronic Specialty Discharge - Follow Up or Referrals Follow up with: Solomon Nunez MD [Physician] - 2 Weeks Discharge Plan - Discharge Data Disposition: Disch To Home/Self Care Discharge Diet: heart healthy Activity: other (Post cath expectations) Hygiene: other (Post cath expectations) Weight Bearing at Discharge: other (Post cath expectations) Driving: other (Post cath expectations) Contact your physician if you experience:: fever over 101, Difficulty voiding, Redness or swelling, Nausea/Vomiting, Shortness of breath, Bleeding, pain uncontrolled by pain medications - Discharge Medications Continue Budesonide/Formoterol 80-4.5 [Symbicort 80-4.5] 2 puff INH BID Nitroglycerin Sl Tab [Nitrostat] 0.4 mg SL Q5M PRN PRN Reason: Chest Pain Montelukast Tab [Singulair Tab] 10 mg PO DAILY Lisinopril 5 mg PO DAILY Levothyroxine Tab [Synthroid Tab] 150 mcg PO DAILY Aspirin [Ecotrin] 81 mg PO DAILY Albuterol Sulfate [Proair HFA] 2 puff INH Q4H PRN PRN Reason: Shortness Of Breath/Wheezing Ranolazine [Ranexa] 500 mg PO BID tablet raNITIdine HCl [Ranitidine HCl] 150 mg PO BID #60 capsule Bisoprolol [Zebeta] 10 mg PO QAM Bisoprolol Fumarate 5 mg PO BEDTIME Atorvastatin [Lipitor] 80 mg PO BEDTIME #30 tablet Cilostazol [Pletal] 50 mg PO BID #60 tablet Insulin NPH/Regular 70/30 [HumuLIN 70/30] 78 unit SUBCUT DAILY unit Insulin NPH/Regular 70/30 [HumuLIN 70/30] 68 unit SUBCUT BEDTIME #0 unit Prasugrel [Effient] 10 mg PO DAILY #30 tablet Magnesium Oxide [Magox 400] 400 mg PO BID amLODIPine [Norvasc] 5 mg PO DAILY #30 tablet Isosorbide Mononitrate [Isosorbide Mononitrate ER] 60 mg PO DAILY Furosemide Tab [Lasix Tab] 40 mg PO DAILY #30 tablet - Follow Up or Referral Follow Up: Solomon Nunez MD [Physician] - 2 Weeks - Forms/Instructions Instructions: Myocardial Infarction (GEN), Left Heart Catheterization (DC), Heart Healthy Diet (GEN), Coronary Intravascular Stent Placement (DC) Exam - Constitutional Vitals: Period Temp Pulse Resp BP Sys/Addison Pulse Ox Last 24 Hr 97 F-98.6 F 62-80 18-20 121-168/59-77 91-98 General appearance: no acute distress, over weight - Head Head exam: Absent: abrasion, hematoma - Eye Eye exam: Absent: periorbital swelling, laceration to eyelids - Respiratory Respiratory exam: Present: clear to auscultation bilaterally. Absent: accessory muscle use, chest wall tenderness - Cardiovascular Cardiovascular exam: Present: regular rate and rhythm. Absent: rubs - GI/Abdominal GI/Abdominal exam: Present: normal bowel sounds, soft. Absent: distended, tenderness - Extremities Exam Extremities exam: Present: other (Right groin without evidence of bleeding or hematoma, no bruit noted, good pedal pulses). Absent: edema - Neurological Exam Neurological exam: Present: alert, oriented X3 - Psychiatric Psychiatric exam: Present: normal affect, normal mood - Skin Skin exam: Present: warm, dry Discharge Results Labs on day of discharge: Labs from last 24 hours 03/16/17 03/16/17 03/15/17 03:25 03:25 19:33 WBC 7.4 RBC 4.73 Hgb 14.0 Hct 42.3 MCV 89.4 MCH 30 MCHC 33.1 RDW 13.1 Plt Count 171 MPV 10.8 Neut % (Auto) 56.6 Lymph % (Auto) 28.0 [place] % (Auto) 10.4 Eos % (Auto) 3.4 Baso % (Auto) 0.7 Neut # (Auto) 4.2 Lymph # (Auto) 2.1 [place] # (Auto) 0.8 Eos # (Auto) 0.3 Baso # (Auto) 0.1 Immature Gran % 0.9 Nucleated RBC % 0.0 Immature Gran # 0.07 Nucleated RBCs # 0.00 Sodium 141 Potassium 3.9 Chloride 106 Carbon Dioxide 28 Anion Gap 10.9 BUN 12 Creatinine 1.10 GFR Calculation 79 BUN/Creatinine Ratio 10.00 Glucose 171 H POC Glucose 325 H Calculated Osmolality 284.3 Calcium 8.8 Total Creatine Kinase 85 D CK-MB (CK-2) 2.9 D Troponin I 1.010 H 03/15/17 03/15/17 03/15/17 17:37 17:32 14:42 WBC RBC Hgb Hct MCV MCH MCHC RDW Plt Count MPV Neut % (Auto) Lymph % (Auto) [place] % (Auto) Eos % (Auto) Baso % (Auto) Neut # (Auto) Lymph # (Auto) [place] # (Auto) Eos # (Auto) Baso # (Auto) Immature Gran % Nucleated RBC % Immature Gran # Nucleated RBCs # Sodium Potassium Chloride Carbon Dioxide Anion Gap BUN Creatinine GFR Calculation BUN/Creatinine Ratio Glucose POC Glucose 224 H Calculated Osmolality Calcium Total Creatine Kinase CK-MB (CK-2) Troponin I 0.975 H 0.950 H D 03/15/17 03/15/17 11:48 07:12 WBC RBC Hgb Hct MCV MCH MCHC RDW Plt Count MPV Neut % (Auto) Lymph % (Auto) [place] % (Auto) Eos % (Auto) Baso % (Auto) Neut # (Auto) Lymph # (Auto) [place] # (Auto) Eos # (Auto) Baso # (Auto) Immature Gran % Nucleated RBC % Immature Gran # Nucleated RBCs # Sodium Potassium Chloride Carbon Dioxide Anion Gap BUN Creatinine GFR Calculation BUN/Creatinine Ratio Glucose POC Glucose 182 H 57 L Calculated Osmolality Calcium Total Creatine Kinase CK-MB (CK-2) Troponin I - Imaging and Cardiology Cardiology Procedure: report reviewed by me Procedure: Chest x-ray: report reviewed by me DS: Provider Consults: 03/15/17 14:22 Consult to Cardiac Rehabilitation [CONS] Routine Reason for Cardiac Rehabilitation: Risk Factor Modification IAster Randall Scott, MD, personally performed the services described in this documentation, ascribed by Gill Baptiste RN in my presence, and it is both accurate and complete 411 .
== END 2017-03-16 15:31 | disposition home or self-care (01) | DRG 247 ==
LOC: N.ED 02:40 → N.EDINP 04:07 → N.TELEN 04:32
PROVIDERS: ADMIT Internal Medicine Interventional Cardiology; ATTEND Internal Medicine Interventional Cardiology

== ENCOUNTER 2017-09-07 06:02 | Inpatient (IN) ==
[2017-09-07] MEDS ORDERED: ENOXAPARIN 100 MG/ML SYRINGE SUBCUT STA (06:19)
[2017-09-07] MEDS ORDERED: MORPHINE 2 MG/1 ML SYRINGE IV PRN (06:19)
[2017-09-07] MEDS ORDERED: ONDANSETRON 4 MG/2 ML VIAL IV PRN (06:19)
[2017-09-07] MEDS ORDERED: ASPIRIN 325 MG TABLET PO STA (06:19)
[2017-09-07] MEDS ORDERED: NITROGLYCERIN 2% OINT 1 INCH/GM PACK TOP STA (06:25)
[2017-09-07 06:31] LABS: Basophils # 0.1 10*3/uL (0.0-0.2); Basophils % 0.7 % (0.0-0.8); Eosinophils # 0.2 10*3/uL (0.0-0.87); Eosinophils % 2.6 % (0.00-10.9); Hematocrit 44.2 VOL% (42.0-52.0); Hemoglobin 15.1 GM/DL (14.0-18.0); Immature Granulocytes % 1.1 %; Immature Granulocytes Absolute 0.08 #; Lymphocytes # 2.6 10*3/uL (1.4-4.0); Mean Corpuscular HGB Conc 34.2 GM/DL (32-36); Mean Corpuscular Hemoglobin 30 PG (27-34); Mean Corpuscular Volume 87.7 FL (87-102); Mean Platelet Volume 10.6 FL (9.6-12.0); Monocytes # 0.8 10*3/uL (0.11-0.8); Monocytes % 10.1 % (1.7-12.7); Neutrophils # 3.8 10*3/uL (1.4-7.4); Neutrophils % 50.5 % (38.7-73.9); Platelet Count 181 T/CUMM (130-400); Red Blood Count 5.04 MC/CUMM (3.8-5.5); Red Cell Distribution Width 13.2 % (9.3-17.3); White Blood Count 7.5 T/CUMM (4-12)
[2017-09-07] MEDS ORDERED: ASPIRIN 325 MG TABLET ONE (06:40)
[2017-09-07] MEDS ORDERED: ENOXAPARIN 100 MG/ML SYRINGE SUBCUT ONE (06:40)
[2017-09-07] MEDS ORDERED: NITROGLYCERIN 2% OINT 1 INCH/GM PACK TOP ONE (06:40)
[2017-09-07 06:50] LABS: INR 0.9; PT Patient Result 9.8 SECS; Partial Thromboplastin Time 27.5 SECS (0-40)
[2017-09-07 07:17] LABS: Albumin 3.9 G/DL (3.4-5.0); Calcium 8.8 MG/DL (8.5-10.1); Osmolality,Calculated 285.4 MOS/KG (273-304); Potassium 4.6 MMOL/L (3.5-5.1); Total Protein 6.9 G/DL (6.4-8.3)
[2017-09-07] MEDS ORDERED: MAGNESIUM SULF RIDER 2 GM in PREMIX 1 EACH IV PRN ×2 (08:14→15:41)
[2017-09-07] MEDS ORDERED: POTASSIUM CHLORIDE 20 MEQ TABLET PO PRN (08:14)
[2017-09-07] MEDS ORDERED: NITROGLYCERIN SL 0.4 MG TABLET SL PRN (08:18)
[2017-09-07] MEDS ORDERED: ALBUTEROL 2.5 MG/3 ML NEB RESP TX PRN (08:18)
[2017-09-07] MEDS ORDERED: INSULIN NPH/REGULAR 70/30 100 UNIT/ML SUBCUT ONE (12:44)
[2017-09-07] MEDS: ASPIRIN EC 81 MG TABLET PO SCH (12:49)
[2017-09-07] MEDS: INSULIN NPH/REGULAR 70/30 100 UNIT/ML SUBCUT SCH ×2 (12:50→21:35)
[2017-09-07] MEDS: NITROGLYCERIN 2% OINT 1 INCH/GM PACK TOP SCH ×2 (12:51→17:39)
[2017-09-07] MEDS ORDERED: MAGNESIUM OXIDE 400 MG TABLET ONE (13:27)
[2017-09-07] MEDS ORDERED: FUROSEMIDE 40 MG TABLET ONE (13:27)
[2017-09-07] MEDS ORDERED: amLODIPine 5 MG TABLET ONE (13:27)
[2017-09-07] MEDS ORDERED: FAMOTIDINE 20 MG TABLET ONE (13:27)
[2017-09-07] MEDS: FUROSEMIDE 40 MG TABLET PO SCH (13:30)
[2017-09-07] MEDS: PRASUGREL 10 MG TABLET PO SCH (13:35)
[2017-09-07] MEDS: MAGNESIUM OXIDE 400 MG TABLET PO SCH ×2 (13:36→21:36)
[2017-09-07] MEDS: RANOLAZINE 500 MG TABLET PO SCH ×2 (13:36→21:36)
[2017-09-07] MEDS: LISINOPRIL 5 MG TABLET PO SCH (13:36)
[2017-09-07] MEDS: FAMOTIDINE 20 MG TABLET PO SCH ×2 (13:36→21:36)
[2017-09-07] MEDS: CILOSTAZOL 50 MG TABLET PO SCH ×2 (13:36→22:21)
[2017-09-07] MEDS: amLODIPine 5 MG TABLET PO SCH (13:36)
[2017-09-07] MEDS: MONTELUKAST 10 MG TABLET PO SCH (13:37)
[2017-09-07] MEDS: LEVOTHYROXINE 150 MCG TABLET PO SCH (13:37)
[2017-09-07] MEDS: BUDESONIDE/FORMOTEROL 80-4.5 INHALER 6.9 GM INH SCH ×2 (13:37→21:36)
[2017-09-07] MEDS ORDERED: POTASSIUM CHLORIDE RIDER 10 MEQ in PREMIX 1 EACH IV PRN (15:41)
[2017-09-07] MEDS ORDERED: guaiFENesin/DM ER 600-30 MG TABLET PO PRN (16:35)
[2017-09-07] MEDS ORDERED: ZALEPLON 5 MG CAPSULE PO PRN (16:35)
[2017-09-07] MEDS ORDERED: BISACODYL 5 MG TABLET PO PRN (16:35)
[2017-09-07] MEDS ORDERED: ACETAMINOPHEN 325 MG TABLET PO PRN (16:35)
[2017-09-07] MEDS ORDERED: LORazepam 0.5 MG TABLET PO PRN (17:07)
[2017-09-07] MEDS ORDERED: ENOXAPARIN 100 MG/ML SYRINGE SUBCUT SCH (18:00)
[2017-09-07] MEDS: ATORVASTATIN 80 MG TABLET PO SCH (21:36)
[2017-09-07] MEDS: BISOPROLOL 5 MG TABLET PO SCH (21:36)
[2017-09-08] MEDS: NITROGLYCERIN 2% OINT 1 INCH/GM PACK TOP SCH ×4 (03:34→17:57)
[2017-09-08] MEDS: SODIUM CHLORIDE 0.45% 1,000 ML IV SCH ×3 (05:33→21:51)
[2017-09-08] MEDS ORDERED: DIAZEPAM 5 MG TABLET PO ONE (06:00)
[2017-09-08] MEDS ORDERED: diphenhydrAMINE CAP 25 MG CAPSULE PO ONE (06:00)
[2017-09-08] MEDS ORDERED: LIDOCAINE 1%/EPI INJ 20 ML VIAL ONE (06:51)
[2017-09-08] MEDS ORDERED: HEPARIN/NACL 0.9% 2 UNITS/ML 1,000 ML IV ONE ×2 (06:54)
[2017-09-08 07:28] LABS: Basophils # 0.1 10*3/uL (0.0-0.2); Basophils % 0.6 % (0.0-0.8); Eosinophils # 0.2 10*3/uL (0.0-0.87); Eosinophils % 2.2 % (0.00-10.9); Hematocrit 43.5 VOL% (42.0-52.0); Hemoglobin 14.7 GM/DL (14.0-18.0); Immature Granulocytes % 0.5 %; Immature Granulocytes Absolute 0.04 #; Lymphocytes # 2.2 10*3/uL (1.4-4.0); Lymphocytes % 28.4 % (21.2-54.2); Mean Corpuscular HGB Conc 33.8 GM/DL (32-36); Mean Corpuscular Hemoglobin 30 PG (27-34); Mean Corpuscular Volume 87.9 FL (87-102); Mean Platelet Volume 10.5 FL (9.6-12.0); Monocytes # 0.7 10*3/uL (0.11-0.8); Monocytes % 8.5 % (1.7-12.7); Neutrophils # 4.6 10*3/uL (1.4-7.4); Neutrophils % 59.8 % (38.7-73.9); Platelet Count 176 T/CUMM (130-400); Red Blood Count 4.95 MC/CUMM (3.8-5.5); Red Cell Distribution Width 13.2 % (9.3-17.3); White Blood Count 7.8 T/CUMM (4-12)
[2017-09-08] MEDS: FAMOTIDINE 20 MG TABLET PO SCH ×3 (07:29→21:47)
[2017-09-08] MEDS: MONTELUKAST 10 MG TABLET PO SCH ×2 (07:29→08:57)
[2017-09-08] MEDS: PANTOPRAZOLE 40 MG TABLET PO SCH ×2 (07:29→08:56)
[2017-09-08] MEDS: LEVOTHYROXINE 150 MCG TABLET PO SCH (07:30)
[2017-09-08] MEDS: PRASUGREL 10 MG TABLET PO SCH ×2 (07:30→08:54)
[2017-09-08] MEDS: MAGNESIUM OXIDE 400 MG TABLET PO SCH ×3 (07:30→21:47)
[2017-09-08] MEDS: CILOSTAZOL 50 MG TABLET PO SCH ×3 (07:30→22:48)
[2017-09-08] MEDS: amLODIPine 5 MG TABLET PO SCH ×2 (07:30→08:55)
[2017-09-08] MEDS: LISINOPRIL 5 MG TABLET PO SCH ×2 (07:31→08:56)
[2017-09-08] MEDS: ASPIRIN EC 81 MG TABLET PO SCH ×2 (07:31→08:54)
[2017-09-08] MEDS: RANOLAZINE 500 MG TABLET PO SCH ×3 (07:31→21:47)
[2017-09-08 07:53] LABS: Calcium 8.6 MG/DL (8.5-10.1); Osmolality,Calculated 280.4 MOS/KG (273-304); Potassium 4.4 MMOL/L (3.5-5.1); Risk Ratio 2.27; VLDL CHOLESTEROL 18.2 MG/DL
[2017-09-08] MEDS ORDERED: ENOXAPARIN 100 MG/ML SYRINGE SUBCUT SCH (08:00)
[2017-09-08] MEDS ORDERED: fentaNYL 100 MCG/2 ML VIAL ONE (08:20)
[2017-09-08] MEDS ORDERED: MIDAZOLAM 2 MG/2 ML VIAL ONE (08:20)
[2017-09-08] MEDS: FUROSEMIDE 40 MG TABLET PO SCH (08:55)
[2017-09-08] MEDS: INSULIN NPH/REGULAR 70/30 100 UNIT/ML SUBCUT SCH ×2 (08:55→21:46)
[2017-09-08] MEDS: BUDESONIDE/FORMOTEROL 80-4.5 INHALER 6.9 GM INH SCH ×2 (08:57→21:51)
[2017-09-08] MEDS ORDERED: ENOXAPARIN 60 MG/0.6 ML SYRINGE ONE (09:06)
[2017-09-08] MEDS ORDERED: DEXTROSE 50% 25 GM/50 ML VIAL IV PRN (10:38)
[2017-09-08] MEDS ORDERED: GLUCAGON 1 MG VIAL IM PRN (10:38)
[2017-09-08] MEDS: ATORVASTATIN 80 MG TABLET PO SCH (21:47)
[2017-09-08] MEDS: BISOPROLOL 5 MG TABLET PO SCH (21:47)
[2017-09-09] MEDS: NITROGLYCERIN 2% OINT 1 INCH/GM PACK TOP SCH ×3 (03:29→12:10)
[2017-09-09 04:51] LABS: Basophils % 0.5 % (0.0-0.8); Eosinophils # 0.2 10*3/uL (0.0-0.87); Eosinophils % 2.5 % (0.00-10.9); Hematocrit 42.6 VOL% (42.0-52.0); Hemoglobin 14.4 GM/DL (14.0-18.0); Immature Granulocytes % 0.5 %; Immature Granulocytes Absolute 0.04 #; Lymphocytes # 2.4 10*3/uL (1.4-4.0); Lymphocytes % 31.9 % (21.2-54.2); Mean Corpuscular HGB Conc 33.8 GM/DL (32-36); Mean Corpuscular Hemoglobin 30 PG (27-34); Mean Corpuscular Volume 87.8 FL (87-102); Mean Platelet Volume 10.8 FL (9.6-12.0); Monocytes # 0.9 10*3/uL (0.11-0.8); Monocytes % 11.7 % (1.7-12.7); Neutrophils % 52.9 % (38.7-73.9); Platelet Count 177 T/CUMM (130-400); Red Blood Count 4.85 MC/CUMM (3.8-5.5); White Blood Count 7.5 T/CUMM (4-12)
[2017-09-09 05:25] LABS: Calcium 8.7 MG/DL (8.5-10.1); Osmolality,Calculated 280.4 MOS/KG (273-304); Potassium 4.5 MMOL/L (3.5-5.1)
[2017-09-09] MEDS: LEVOTHYROXINE 150 MCG TABLET PO SCH (06:44)
[2017-09-09] MEDS: SODIUM CHLORIDE 0.45% 1,000 ML IV SCH ×2 (06:44→12:10)
[2017-09-09] MEDS: FUROSEMIDE 40 MG TABLET PO SCH (09:34)
[2017-09-09] MEDS: MONTELUKAST 10 MG TABLET PO SCH (09:34)
[2017-09-09] MEDS: CILOSTAZOL 50 MG TABLET PO SCH (09:34)
[2017-09-09] MEDS: MAGNESIUM OXIDE 400 MG TABLET PO SCH (09:34)
[2017-09-09] MEDS: RANOLAZINE 500 MG TABLET PO SCH (09:34)
[2017-09-09] MEDS: LISINOPRIL 5 MG TABLET PO SCH (09:34)
[2017-09-09] MEDS: amLODIPine 5 MG TABLET PO SCH (09:35)
[2017-09-09] MEDS: FAMOTIDINE 20 MG TABLET PO SCH (09:35)
[2017-09-09] MEDS: PRASUGREL 10 MG TABLET PO SCH (09:35)
[2017-09-09] MEDS: INSULIN NPH/REGULAR 70/30 100 UNIT/ML SUBCUT SCH (09:35)
[2017-09-09] MEDS: ASPIRIN EC 81 MG TABLET PO SCH (09:35)
[2017-09-09] MEDS: PANTOPRAZOLE 40 MG TABLET PO SCH (09:35)
[2017-09-09] MEDS: BUDESONIDE/FORMOTEROL 80-4.5 INHALER 6.9 GM INH SCH (09:36)
[2017-09-09 12:14] VITALS: BP 118/68
== END 2017-09-09 14:21 | disposition home or self-care (01) | DRG 247 ==
LOC: N.ED 06:02 → N.EDINP 08:14 → N.TELEN 14:23
PROVIDERS: ADMIT Internal Medicine Interventional Cardiology; ATTEND Internal Medicine Interventional Cardiology

== ENCOUNTER 2019-08-13 04:22 | Observation (INO) ==
[2019-08-13 04:44] LABS: Basophils # 0.1 10*3/uL (0.0-0.2); Basophils % 0.7 % (0.0-0.8); Eosinophils # 0.5 10*3/uL (0.0-0.87); Eosinophils % 4.2 % (0.00-10.9); Hematocrit 45.8 VOL% (42.0-52.0); Hemoglobin 14.9 GM/DL (14.0-18.0); Immature Granulocytes % 1.4 %; Immature Granulocytes Absolute 0.15 #; Lymphocytes # 2.9 10*3/uL (1.4-4.0); Lymphocytes % 26.6 % (21.2-54.2); Mean Corpuscular HGB Conc 32.5 GM/DL (32-36); Mean Corpuscular Volume 91.6 FL (87-102); Mean Platelet Volume 10.7 FL (9.6-12.0); Monocytes % 9.1 % (1.7-12.7); Platelet Count 186 T/CUMM (130-400); Red Cell Distribution Width 13.2 % (9.3-17.3); White Blood Count 10.8 T/CUMM (4-12)
[2019-08-13 05:09] LABS: Albumin 3.8 G/DL (3.4-5.0); Calcium 8.9 MG/DL (8.5-10.1); Osmolality,Calculated 284.5 MOS/KG (273-304)
[2019-08-13] MEDS ORDERED: ACETAMINOPHEN 325 MG TABLET PO PRN (06:26)
[2019-08-13] MEDS ORDERED: MORPHINE 4 MG/1 ML VIAL IV PRN (06:26)
[2019-08-13] MEDS ORDERED: DOCUSATE SODIUM 100 MG CAPSULE PO PRN (06:26)
[2019-08-13] MEDS ORDERED: ONDANSETRON 4 MG/2 ML VIAL IV PRN (06:26)
[2019-08-13] MEDS ORDERED: NITROGLYCERIN SL 0.4 MG TABLET SL PRN (06:30)
[2019-08-13] MEDS ORDERED: GLUCAGON 1 MG VIAL IM PRN (06:44)
[2019-08-13] MEDS ORDERED: DEXTROSE 10% 250 ML BAG IV PRN (06:44)
[2019-08-13 07:15] LABS: Risk Ratio 2.05; Thyroid Stimulating Hormone 0.138 uIU/ml (0.358-3.74); VLDL CHOLESTEROL 16.8 MG/DL
[2019-08-13] MEDS ORDERED: INSULIN NPH/REGULAR 70/30 100 UNIT/ML SUBCUT SCH ×2 (09:00→21:00)
[2019-08-13] MEDS ORDERED: amLODIPine 5 MG TABLET PO SCH (09:00)
[2019-08-13] MEDS ORDERED: LISINOPRIL 5 MG TABLET PO SCH (09:00)
[2019-08-13] MEDS: INSULIN LISPRO 100 UNIT/ML SUBCUT SCH ×4 (10:29→21:47)
[2019-08-13] MEDS: ASPIRIN EC 81 MG TABLET PO SCH (10:29)
[2019-08-13] MEDS: FUROSEMIDE 40 MG TABLET PO SCH (10:30)
[2019-08-13] MEDS: MONTELUKAST 10 MG TABLET PO SCH (10:30)
[2019-08-13] MEDS: PRASUGREL 10 MG TABLET PO SCH (10:30)
[2019-08-13] MEDS: CILOSTAZOL 50 MG TABLET PO SCH ×2 (10:30→21:46)
[2019-08-13] MEDS: MAGNESIUM OXIDE 400 MG TABLET PO SCH ×2 (10:30→21:47)
[2019-08-13] MEDS: FAMOTIDINE 20 MG TABLET PO SCH ×2 (10:30→21:47)
[2019-08-13] MEDS: RANOLAZINE 500 MG TABLET PO SCH ×2 (10:30→21:47)
[2019-08-13] MEDS: BISOPROLOL 5 MG TABLET PO SCH ×2 (10:31→21:47)
[2019-08-13] MEDS: BUDESONIDE/FORMOTEROL 80-4.5 INHALER 6.9 GM INH SCH ×2 (10:31→21:48)
[2019-08-13] MEDS ORDERED: MAGNESIUM SULF RIDER 2 GM in PREMIX 1 EACH IV PRN (14:25)
[2019-08-13] MEDS ORDERED: MAGNESIUM SULF RIDER 4 GM in PREMIX 1 EACH IV PRN (14:25)
[2019-08-13] MEDS: INSULIN NPH/REGULAR 70/30 100 UNIT/ML SUBCUT SCH (21:46)
[2019-08-13] MEDS: ATORVASTATIN 80 MG TABLET PO SCH (21:47)
[2019-08-14 03:56] LABS: Basophils # 0.1 10*3/uL (0.0-0.2); Basophils % 0.6 % (0.0-0.8); Eosinophils # 0.4 10*3/uL (0.0-0.87); Hematocrit 43.3 VOL% (42.0-52.0); Hemoglobin 14.3 GM/DL (14.0-18.0); Immature Granulocytes % 0.7 %; Immature Granulocytes Absolute 0.07 #; Lymphocytes # 2.9 10*3/uL (1.4-4.0); Lymphocytes % 29.7 % (21.2-54.2); Mean Corpuscular Volume 91.4 FL (87-102); Mean Platelet Volume 10.8 FL (9.6-12.0); Monocytes % 8.6 % (1.7-12.7); Neutrophils % 56.4 % (38.7-73.9); Platelet Count 169 T/CUMM (130-400); Red Blood Count 4.74 MC/CUMM (3.8-5.5); Red Cell Distribution Width 13.1 % (9.3-17.3); White Blood Count 9.7 T/CUMM (4-12)
[2019-08-14 04:27] LABS: Calcium 8.9 MG/DL (8.5-10.1); Osmolality,Calculated 290.3 MOS/KG (273-304)
[2019-08-14] MEDS: LEVOTHYROXINE 150 MCG TABLET PO SCH (06:18)
[2019-08-14] MEDS: BUDESONIDE/FORMOTEROL 80-4.5 INHALER 6.9 GM INH SCH ×2 (08:24→21:22)
[2019-08-14] MEDS: PRASUGREL 10 MG TABLET PO SCH (08:24)
[2019-08-14] MEDS: RANOLAZINE 500 MG TABLET PO SCH ×2 (08:24→21:21)
[2019-08-14] MEDS: MONTELUKAST 10 MG TABLET PO SCH (08:24)
[2019-08-14] MEDS: INSULIN LISPRO 100 UNIT/ML SUBCUT SCH ×4 (08:24→21:26)
[2019-08-14] MEDS: FAMOTIDINE 20 MG TABLET PO SCH (08:24)
[2019-08-14] MEDS: BISOPROLOL 5 MG TABLET PO SCH ×2 (08:24→21:20)
[2019-08-14] MEDS: ASPIRIN EC 81 MG TABLET PO SCH (08:24)
[2019-08-14] MEDS: CILOSTAZOL 50 MG TABLET PO SCH ×2 (08:24→21:21)
[2019-08-14] MEDS: amLODIPine 10 MG TABLET PO SCH (08:24)
[2019-08-14] MEDS: FUROSEMIDE 40 MG TABLET PO SCH (08:24)
[2019-08-14] MEDS: MAGNESIUM OXIDE 400 MG TABLET PO SCH ×2 (08:24→21:20)
[2019-08-14] MEDS: INSULIN NPH/REGULAR 70/30 100 UNIT/ML SUBCUT SCH ×2 (08:25→21:27)
[2019-08-14] MEDS: ENOXAPARIN 100 MG/ML SYRINGE SUBCUT SCH ×3 (10:36→21:28)
[2019-08-14] MEDS: ATORVASTATIN 80 MG TABLET PO SCH (21:20)
[2019-08-15 05:10] LABS: Basophils % 0.4 % (0.0-0.8); Eosinophils # 0.4 10*3/uL (0.0-0.87); Eosinophils % 3.9 % (0.00-10.9); Hematocrit 44.2 VOL% (42.0-52.0); Hemoglobin 14.5 GM/DL (14.0-18.0); Immature Granulocytes % 1.1 %; Lymphocytes # 2.9 10*3/uL (1.4-4.0); Lymphocytes % 32.7 % (21.2-54.2); Mean Corpuscular HGB Conc 32.8 GM/DL (32-36); Mean Corpuscular Volume 90.8 FL (87-102); Monocytes % 10.2 % (1.7-12.7); Neutrophils % 51.7 % (38.7-73.9); Platelet Count 175 T/CUMM (130-400); Red Blood Count 4.87 MC/CUMM (3.8-5.5); Red Cell Distribution Width 12.9 % (9.3-17.3); White Blood Count 8.9 T/CUMM (4-12)
[2019-08-15] MEDS: LEVOTHYROXINE 150 MCG TABLET PO SCH (05:30)
[2019-08-15 05:42] LABS: Calcium 8.8 MG/DL (8.5-10.1); Osmolality,Calculated 282.4 MOS/KG (273-304)
[2019-08-15] MEDS ORDERED: POTASSIUM CHLORIDE RIDER 10 MEQ in PREMIX 1 EACH IV PRN (06:00)
[2019-08-15] MEDS: INSULIN LISPRO 100 UNIT/ML SUBCUT SCH ×4 (07:45→20:37)
[2019-08-15] MEDS ORDERED: DIAZEPAM 5 MG TABLET PO ONE (08:30)
[2019-08-15] MEDS ORDERED: diphenhydrAMINE CAP 25 MG CAPSULE PO ONE (08:30)
[2019-08-15] MEDS: DEXTROSE 5% NACL 0.45% 1,000 ML IV SCH ×2 (08:35→08:55)
[2019-08-15] MEDS: PRASUGREL 10 MG TABLET PO SCH (08:55)
[2019-08-15] MEDS: ASPIRIN EC 81 MG TABLET PO SCH (08:55)
[2019-08-15] MEDS: PANTOPRAZOLE 40 MG TABLET PO SCH (08:56)
[2019-08-15] MEDS: amLODIPine 10 MG TABLET PO SCH (08:56)
[2019-08-15] MEDS: BISOPROLOL 5 MG TABLET PO SCH ×2 (08:56→20:38)
[2019-08-15] MEDS: CILOSTAZOL 50 MG TABLET PO SCH ×2 (08:56→20:38)
[2019-08-15] MEDS: RANOLAZINE 500 MG TABLET PO SCH ×2 (08:56→20:38)
[2019-08-15] MEDS: MONTELUKAST 10 MG TABLET PO SCH ×2 (09:31→12:18)
[2019-08-15] MEDS: BUDESONIDE/FORMOTEROL 80-4.5 INHALER 6.9 GM INH SCH ×2 (09:31→20:39)
[2019-08-15] MEDS: INSULIN NPH/REGULAR 70/30 100 UNIT/ML SUBCUT SCH ×4 (09:31→20:38)
[2019-08-15] MEDS: ENOXAPARIN 100 MG/ML SYRINGE SUBCUT SCH ×2 (09:31→22:27)
[2019-08-15] MEDS: FUROSEMIDE 40 MG TABLET PO SCH ×2 (09:31→12:18)
[2019-08-15] MEDS: MAGNESIUM OXIDE 400 MG TABLET PO SCH ×3 (09:31→20:38)
[2019-08-15] MEDS ORDERED: HEPARIN/NACL 0.9% 2 UNITS/ML 1,000 ML IV ONE (09:36)
[2019-08-15] MEDS ORDERED: LIDOCAINE 1%/EPI INJ 20 ML VIAL ONE (09:36)
[2019-08-15] MEDS ORDERED: MIDAZOLAM 2 MG/2 ML VIAL ONE (09:47)
[2019-08-15] MEDS ORDERED: fentaNYL 100 MCG/2 ML VIAL ONE (09:47)
[2019-08-15] MEDS: ATORVASTATIN 80 MG TABLET PO SCH (20:38)
[2019-08-16 04:01] LABS: Basophils # 0.1 10*3/uL (0.0-0.2); Basophils % 0.5 % (0.0-0.8); Eosinophils # 0.4 10*3/uL (0.0-0.87); Eosinophils % 3.6 % (0.00-10.9); Hematocrit 45.1 VOL% (42.0-52.0); Hemoglobin 15.1 GM/DL (14.0-18.0); Lymphocytes % 28.6 % (21.2-54.2); Mean Corpuscular HGB Conc 33.5 GM/DL (32-36); Mean Corpuscular Volume 89.3 FL (87-102); Mean Platelet Volume 11.2 FL (9.6-12.0); Monocytes % 10.5 % (1.7-12.7); Neutrophils % 55.8 % (38.7-73.9); Platelet Count 178 T/CUMM (130-400); Red Blood Count 5.05 MC/CUMM (3.8-5.5); White Blood Count 10.4 T/CUMM (4-12)
[2019-08-16 04:23] LABS: Calcium 8.9 MG/DL (8.5-10.1); Osmolality,Calculated 280.7 MOS/KG (273-304)
[2019-08-16] MEDS: LEVOTHYROXINE 150 MCG TABLET PO SCH (06:03)
[2019-08-16] MEDS: INSULIN NPH/REGULAR 70/30 100 UNIT/ML SUBCUT SCH (09:12)
[2019-08-16] MEDS: INSULIN LISPRO 100 UNIT/ML SUBCUT SCH ×2 (09:12→11:46)
[2019-08-16] MEDS: amLODIPine 10 MG TABLET PO SCH (09:13)
[2019-08-16] MEDS: ENOXAPARIN 100 MG/ML SYRINGE SUBCUT SCH (09:13)
[2019-08-16] MEDS: ASPIRIN EC 81 MG TABLET PO SCH (09:13)
[2019-08-16] MEDS: RANOLAZINE 500 MG TABLET PO SCH (09:14)
[2019-08-16] MEDS: PANTOPRAZOLE 40 MG TABLET PO SCH (09:14)
[2019-08-16] MEDS: CILOSTAZOL 50 MG TABLET PO SCH (09:14)
[2019-08-16] MEDS: BUDESONIDE/FORMOTEROL 80-4.5 INHALER 6.9 GM INH SCH (09:14)
[2019-08-16] MEDS: MONTELUKAST 10 MG TABLET PO SCH (09:14)
[2019-08-16] MEDS: MAGNESIUM OXIDE 400 MG TABLET PO SCH (09:14)
[2019-08-16] MEDS: FUROSEMIDE 40 MG TABLET PO SCH (09:14)
[2019-08-16] MEDS: BISOPROLOL 5 MG TABLET PO SCH (09:14)
[2019-08-16 11:44] VITALS: BP 127/68
[2019-08-16] MEDS ORDERED: INSULIN NPH/REGULAR 70/30 100 UNIT/ML SUBCUT SCH ×2 (13:15→13:39)
[2019-08-18] MEDS ORDERED: FAMOTIDINE 20 MG TABLET PO ONE (06:00)
[2019-08-18] MEDS ORDERED: DIAZEPAM 5 MG TABLET PO ONE (06:00)
== END 2019-08-16 16:30 | disposition home or self-care (01) ==
LOC: N.ED 04:22 → N.EDINP 04:22 → SUATTDRO 06:23 → N.5E 07:33 → N.TELES 08-14 12:55
PROVIDERS: ADMIT Internal Medicine; ATTEND Emergency Medicine

== ENCOUNTER 2019-08-24 12:01 | Inpatient (IN) ==
[~2019-08-24 12:01] MED LIST: ACETAMINOPHEN 325 MG TABLET PO PRN; DEXTROSE 10% 25 GM/250 ML BAG IV PRN; DOCUSATE SODIUM 100 MG CAPSULE PO PRN; GLUCAGON 1 MG VIAL IM PRN; NITROGLYCERIN SL 0.4 MG TABLET SL PRN; ZALEPLON 5 MG CAPSULE PO PRN
[2019-08-24 15:54] LABS: Pt O2 Delivery Device Room Air
[2019-08-24 15:55] LABS: ABG Base Excess 1.1 MMOL/L (-2.5-2.5); ABG HCO3 25.4 MMOL/L (20-26); ABG Oxygen Saturation 96.7 % (95-100); ABG PCO2 40.7 MM HG (35-48); ABG PO2 84.2 MM HG (80-95)
[2019-08-24] MEDS: CHLORHEXIDINE 4% SOLN 118 ML BOTTLE TOP SCH ×3 (16:30→21:00)
[2019-08-24] MEDS: ASPIRIN EC 81 MG TABLET PO SCH (16:32)
[2019-08-24] MEDS: MAGNESIUM OXIDE 400 MG TABLET PO SCH ×2 (16:33→21:58)
[2019-08-24] MEDS: FAMOTIDINE 20 MG TABLET PO SCH ×2 (16:33→21:59)
[2019-08-24] MEDS: amLODIPine 10 MG TABLET PO SCH (16:33)
[2019-08-24] MEDS: INSULIN NPH/REGULAR 70/30 100 UNIT/ML SUBCUT SCH (16:33)
[2019-08-24] MEDS: RANOLAZINE 500 MG TABLET PO SCH ×2 (16:34→21:58)
[2019-08-24] MEDS: BUDESONIDE/FORMOTEROL 80-4.5 INHALER 6.9 GM INH SCH ×2 (16:34→22:06)
[2019-08-24] MEDS: MONTELUKAST 10 MG TABLET PO SCH (16:34)
[2019-08-24] MEDS: LEVOTHYROXINE 150 MCG TABLET PO SCH (16:34)
[2019-08-24] MEDS: BISOPROLOL 5 MG TABLET PO SCH ×2 (16:35→21:58)
[2019-08-24] MEDS: SODIUM CHLORIDE 0.9% 1,000 ML IV SCH (17:11)
[2019-08-24] MEDS: CHLORHEXIDINE 0.12% ORAL RINSE 60 ML BOTTLE SWISH/SPIT SCH ×2 (17:19→22:06)
[2019-08-24 18:27] LABS: Basophils # 0.1 10*3/uL (0.0-0.2); Basophils % 0.7 % (0.0-0.8); Eosinophils # 0.2 10*3/uL (0.0-0.87); Eosinophils % 2.8 % (0.00-10.9); Hemoglobin 13.9 GM/DL (14.0-18.0); Immature Granulocytes % 1.3 %; Immature Granulocytes Absolute 0.11 #; Lymphocytes # 2.9 10*3/uL (1.4-4.0); Lymphocytes % 33.3 % (21.2-54.2); Mean Corpuscular HGB Conc 33.1 GM/DL (32-36); Mean Corpuscular Volume 89.2 FL (87-102); Mean Platelet Volume 11.6 FL (9.6-12.0); Monocytes % 8.6 % (1.7-12.7); Neutrophils % 53.3 % (38.7-73.9); Platelet Count 199 T/CUMM (130-400); Red Blood Count 4.71 MC/CUMM (3.8-5.5); Red Cell Distribution Width 12.8 % (9.3-17.3); White Blood Count 8.6 T/CUMM (4-12)
[2019-08-24 18:50] LABS: Albumin 3.5 G/DL (3.4-5.0); Bilirubin,Total 0.5 MG/DL (0.2-1.0); Calcium 8.7 MG/DL (8.5-10.1); Osmolality,Calculated 286.1 MOS/KG (273-304); Total Protein 6.9 G/DL (6.4-8.3)
[2019-08-24] MEDS ORDERED: ATORVASTATIN 80 MG TABLET PO SCH (21:00)
[2019-08-24] MEDS ORDERED: INSULIN NPH/REGULAR 70/30 100 UNIT/ML SUBCUT SCH (21:00)
[2019-08-25] MEDS ORDERED: PAPAVERINE 60 MG/2 ML VIAL ONE (05:09)
[2019-08-25] MEDS ORDERED: VANCOMYCIN 1,000 MG VIAL ONE (05:09)
[2019-08-25] MEDS ORDERED: VANCOMYCIN 500 MG VIAL ONE (05:09)
[2019-08-25] MEDS ORDERED: CEFUROXIME INJ 1,500 MG in SYRINGE 1 EACH IV ONE (05:42)
[2019-08-25] MEDS: BISOPROLOL 5 MG TABLET PO SCH ×2 (06:00→08:49)
[2019-08-25] MEDS ORDERED: DIAZEPAM 5 MG TABLET PO ONE (06:00)
[2019-08-25] MEDS ORDERED: FAMOTIDINE 20 MG TABLET PO ONE (06:00)
[2019-08-25] MEDS ORDERED: MIDAZOLAM 10 MG/2 ML VIAL ONE ×2 (06:18)
[2019-08-25] MEDS ORDERED: SUFentanil 250 MCG/5 ML AMP ONE (06:18)
[2019-08-25] MEDS ORDERED: diphenhydrAMINE 50 MG/1 ML VIAL ONE (06:19)
[2019-08-25] MEDS ORDERED: FAMOTIDINE 20 MG/2 ML VIAL IV ONE (06:19)
[2019-08-25] MEDS ORDERED: MINERAL OIL/PETROLATUM OPH OINT 3.5 GM TUBE ONE (06:19)
[2019-08-25 07:44] LABS: ABG Base Excess -0.3 MMOL/L (-2.5-2.5); ABG HCO3 24.2 MMOL/L (20-26); ABG Oxygen Saturation 99.5 % (95-100); ABG PCO2 39.1 MM HG (35-48); ABG PH 7.409 (7.35-7.45); ABG TCO2 25.4 MMOL/L (23-27); Glucose Heart Surgery 238 MG/DL (74-106); Hemoglobin Heart Surgery 13.4 G/DL (14.0-18.0); Ionized Calcium Arterial 1.13 MMOL/L (1.21-1.46); PCO2 Patient Temp Arterial 39.1 MMHG; PH Patient Temp Arterial 7.409; PO2 Patient Temp Arterial 519.6 MM HG; Patient Temperature 37 CELCIUS; Potassium Heart/CVR 4.1 MMOL/L (3.5-5.1); Sodium Heart/CVR 136 MMOL/L (135-145)
[2019-08-25 07:45] LABS: ABG PO2 519.6 MM HG (80-95)
[2019-08-25] MEDS: LEVOTHYROXINE 150 MCG TABLET PO SCH (08:47)
[2019-08-25] MEDS: ASPIRIN EC 81 MG TABLET PO SCH (08:48)
[2019-08-25] MEDS: INSULIN NPH/REGULAR 70/30 100 UNIT/ML SUBCUT SCH (08:48)
[2019-08-25] MEDS: MAGNESIUM OXIDE 400 MG TABLET PO SCH (08:48)
[2019-08-25] MEDS: amLODIPine 10 MG TABLET PO SCH (08:48)
[2019-08-25] MEDS: MONTELUKAST 10 MG TABLET PO SCH (08:49)
[2019-08-25] MEDS: CHLORHEXIDINE 0.12% ORAL RINSE 60 ML BOTTLE SWISH/SPIT SCH ×2 (08:49→20:35)
[2019-08-25] MEDS: SODIUM CHLORIDE 0.9% 1,000 ML IV SCH (08:49)
[2019-08-25] MEDS: FAMOTIDINE 20 MG TABLET PO SCH (08:49)
[2019-08-25] MEDS: RANOLAZINE 500 MG TABLET PO SCH (08:49)
[2019-08-25] MEDS: BUDESONIDE/FORMOTEROL 80-4.5 INHALER 6.9 GM INH SCH (08:49)
[2019-08-25] MEDS ORDERED: POTASSIUM CHLORIDE RIDER 100 ML IV ONE (08:58)
[2019-08-25] MEDS ORDERED: ALBUMIN 5% 12.5 GM/250 ML VIAL IV ONE (08:58)
[2019-08-25] MEDS ORDERED: PHENYLEPHRINE DRIP 40 MG/250 ML PREMIX IV ONE (08:59)
[2019-08-25] MEDS ORDERED: HEPARIN/NACL 0.9% 2 UNITS/ML 500 ML IV ONE (09:45)
[2019-08-25 09:47] LABS: Apearance,Urine CLEAR (Clear); Bilirubin,Urine Negative (Negative); Blood, Urine Negative (Negative); Glucose,Urine (UA) 150 mg/dL (Negative); Hyaline Casts,Urine 4 /LPF (0-3); Ketones,Urine Negative (Negative); Mucus,Urine Occasional /LPF (Occasional); Nitrite,Urine Negative (Negative); Protein,Urine Negative; RBC,Urine 1 /HPF (0-4); Squamous Epithelial Cell,Urine Occasional /HPF (0-10); Urine Color Yellow (Yellow); Urine Specific Gravity 1.018 (1.001-1.035); Urine Urobilinogen < 2.0 EU/DL (0.2-1.0); WBC,Urine <1 /HPF (0-6)
[2019-08-25 10:11] LABS: Hematocrit Heart Surgery 28.1 PERCENT (42-52); Hemoglobin Heart Surgery 9.1 G/DL (14.0-18.0); PCO2 Patient Temp Venous 38.7 MM HG; PH Patient Temp Venous 7.436; VBG Base Excess 1.8 MEQ/L (0-4); VBG HCO3 25.7 MEQ/L (24-28); VBG Oxygen Saturation 77.8 %; VBG PCO2 38.7 MMHG (41-51); VBG PH 7.436
[2019-08-25 10:12] LABS: Potassium Heart/CVR 6.3 MMOL/L (3.5-5.1)
[2019-08-25 10:34] LABS: Hematocrit Heart Surgery 24.4 PERCENT (42-52); Hemoglobin Heart Surgery 7.8 G/DL (14.0-18.0); PH Patient Temp Venous 7.461; PO2 Patient Temp Venous 32.2 MM HG; VBG HCO3 25.9 MEQ/L (24-28); VBG Oxygen Saturation 74.3 %; VBG PCO2 39.7 MMHG (41-51); VBG PH 7.431
[2019-08-25 10:35] LABS: Potassium Heart/CVR 6.5 MMOL/L (3.5-5.1)
[2019-08-25 11:04] LABS: Hemoglobin Heart Surgery 8.9 G/DL (14.0-18.0); PCO2 Patient Temp Venous 31.1 MM HG; PH Patient Temp Venous 7.483; PO2 Patient Temp Venous 36.2 MM HG; Potassium Heart/CVR 5.8 MMOL/L (3.5-5.1); VBG Base Excess -0.5 MEQ/L (0-4); VBG HCO3 23.5 MEQ/L (24-28); VBG Oxygen Saturation 81.8 %; VBG PCO2 35.5 MMHG (41-51); VBG PH 7.438; VBG PO2 44.7 MMHG (17-40)
[2019-08-25 11:57] LABS: Hematocrit Heart Surgery 24.8 PERCENT (42-52); PCO2 Patient Temp Venous 32.2 MM HG; PH Patient Temp Venous 7.472; PO2 Patient Temp Venous 30.2 MM HG; VBG Base Excess 0.3 MEQ/L (0-4); VBG HCO3 24.4 MEQ/L (24-28); VBG Oxygen Saturation 72.1 %; VBG PCO2 35.4 MMHG (41-51); VBG PH 7.442; VBG PO2 34.8 MMHG (17-40)
[2019-08-25 11:58] LABS: Potassium Heart/CVR 6.1 MMOL/L (3.5-5.1)
[2019-08-25 12:39] LABS: ABG Base Excess -1.4 MMOL/L (-2.5-2.5); ABG HCO3 23.7 MMOL/L (20-26); ABG PCO2 41.7 MM HG (35-48); ABG PH 7.373 (7.35-7.45); ABG PO2 454.2 MM HG (80-95); Glucose Heart Surgery 446 MG/DL (74-106); Hemoglobin Heart Surgery 8.6 G/DL (14.0-18.0); PCO2 Patient Temp Arterial 41.7 MMHG; PH Patient Temp Arterial 7.373; PO2 Patient Temp Arterial 454.2 MM HG; Patient Temperature 37 CELCIUS; Potassium Heart/CVR 3.6 MMOL/L (3.5-5.1); Sodium Heart/CVR 129 MMOL/L (135-145)
[2019-08-25] MEDS ORDERED: DEXTROSE 5% KCL 20 MEQ 40 MEQ/2,000 ML BAG IV ONE (12:42)
[2019-08-25] MEDS ORDERED: SODIUM BICARBONATE 50 MEQ/50 ML VIAL IV ONE (12:42)
[2019-08-25] MEDS ORDERED: HEPARIN 10,000 UNIT/10 ML VIAL ONE (12:42)
[2019-08-25] MEDS ORDERED: MANNITOL 100 GM/500 ML BAG IV ONE (12:42)
[2019-08-25] MEDS ORDERED: LIDOCAINE 2% 5 ML VIAL ONE ×2 (12:42→13:43)
[2019-08-25] MEDS ORDERED: methylPREDNISolone SOD SUC 1,000 MG/8 ML VIAL ONE (12:42)
[2019-08-25] MEDS ORDERED: PROTAMINE SULFATE 250 MG/25 ML VIAL IV ONE (12:42)
[2019-08-25] MEDS ORDERED: MAGNESIUM SULFATE 5 GM/10 ML VIAL IV ONE (12:42)
[2019-08-25] MEDS ORDERED: ALBUMIN 25% 25 GM/100 ML VIAL IV ONE (12:42)
[2019-08-25] MEDS ORDERED: FUROSEMIDE 20 MG/2 ML VIAL ONE (12:43)
[2019-08-25] MEDS ORDERED: PROTAMINE SULFATE 50 MG/5 ML VIAL IV ONE ×2 (12:43→14:03)
[2019-08-25] MEDS ORDERED: CALCIUM CHLORIDE 1,000 MG/10 ML VIAL IV ONE (13:43)
[2019-08-25] MEDS ORDERED: PHENYLEPHRINE DRIP 20 MG/250 ML PREMIX IV ONE (13:43)
[2019-08-25] MEDS ORDERED: SEVOFLURANE 1 UNIT/15 MINUTE INH ONE (13:43)
[2019-08-25] MEDS ORDERED: SODIUM CHLORIDE 0.9% 250 ML IV ONE (13:44)
[2019-08-25] MEDS ORDERED: LACTATED RINGERS 1,000 ML IV ONE (13:44)
[2019-08-25] MEDS ORDERED: ETOMIDATE 40 MG/20 ML VIAL IV ONE (13:44)
[2019-08-25] MEDS ORDERED: AMINOCAPROIC ACID 5,000 MG/20 ML VIAL ONE (13:44)
[2019-08-25] MEDS ORDERED: VECURONIUM 10 MG VIAL IV ONE (13:44)
[2019-08-25] MEDS ORDERED: NITROGLYCERIN DRIP 50 MG/250 ML BOTTLE IV ONE (13:44)
[2019-08-25] MEDS ORDERED: SODIUM CHLORIDE 0.9% 100 ML IV ONE (13:45)
[2019-08-25] MEDS ORDERED: MORPHINE 10 MG/1 ML VIAL IV PRN (14:02)
[2019-08-25] MEDS ORDERED: MIDAZOLAM 10 MG/2 ML VIAL IV PRN (14:02)
[2019-08-25] MEDS ORDERED: LACTATED RINGERS 250 ML IV PRN (14:02)
[2019-08-25] MEDS ORDERED: NITROPRUSSIDE 100 MG in DEXTROSE 5% 250 ML IV PRN (14:02)
[2019-08-25] MEDS ORDERED: INSULIN REGULAR 100 UNIT/ML IV PRN (14:02)
[2019-08-25] MEDS ORDERED: PHENYLEPHRINE DRIP 40 MG/250 ML PREMIX IV PRN (14:02)
[2019-08-25] MEDS ORDERED: ONDANSETRON 4 MG/2 ML VIAL IV PRN (14:02)
[2019-08-25] MEDS ORDERED: INSULIN REGULAR DRIP 100 ML IV SCH (14:02)
[2019-08-25] MEDS ORDERED: INSULIN REGULAR 100 UNIT/ML IV ONE (14:02)
[2019-08-25] MEDS ORDERED: POTASSIUM CHLORIDE RIDER 10 MEQ in PREMIX 1 EACH IV PRN (14:02)
[2019-08-25] MEDS ORDERED: ACETAMINOPHEN 650 MG SUPP RECTAL PRN (14:02)
[2019-08-25] MEDS ORDERED: SODIUM CHLORIDE 0.45% 1,000 ML IV SCH ×2 (14:02)
[2019-08-25] MEDS ORDERED: DEXTROSE 10% 250 ML BAG IV PRN ×2 (14:02)
[2019-08-25] MEDS ORDERED: MAGNESIUM SULF RIDER 2 GM in PREMIX 1 EACH IV PRN (14:02)
[2019-08-25] MEDS ORDERED: MIDAZOLAM 2 MG/2 ML VIAL IV PRN (14:02)
[2019-08-25] MEDS ORDERED: MAGNESIUM SULF RIDER 4 GM in PREMIX 1 EACH IV PRN (14:02)
[2019-08-25] MEDS ORDERED: CALCIUM CHLORIDE 1,000 MG/10 ML SYRINGE IV PRN (14:02)
[2019-08-25] MEDS ORDERED: KETOROLAC 30 MG/1 ML VIAL IV SCH (14:02)
[2019-08-25] MEDS ORDERED: VECURONIUM 10 MG VIAL IV PRN ×2 (14:02)
[2019-08-25] MEDS ORDERED: MORPHINE 4 MG/1 ML VIAL IV PRN (14:02)
[2019-08-25 14:07] LABS: ABG Base Excess -0.3 MMOL/L (-2.5-2.5); ABG HCO3 24.2 MMOL/L (20-26); ABG PCO2 44.8 MM HG (35-48); ABG PH 7.358 (7.35-7.45); ABG TCO2 23.6 MMOL/L (23-27); Glucose Heart Surgery 392 MG/DL (74-106); Hematocrit Heart Surgery 25.7 PERCENT (42-52); Hemoglobin Heart Surgery 8.3 G/DL (14.0-18.0); Potassium Heart/CVR 3.4 MMOL/L (3.5-5.1)
[2019-08-25 14:16] LABS: Basophils % 0.3 % (0.0-0.8); Eosinophils # 0.1 10*3/uL (0.0-0.87); Eosinophils % 0.6 % (0.00-10.9); Hematocrit 23.9 VOL% (42.0-52.0); Immature Granulocytes % 1.5 %; Lymphocytes # 1.2 10*3/uL (1.4-4.0); Lymphocytes % 8.8 % (21.2-54.2); Mean Corpuscular HGB Conc 33.5 GM/DL (32-36); Mean Corpuscular Volume 90.5 FL (87-102); Mean Platelet Volume 11.4 FL (9.6-12.0); Monocytes % 4.5 % (1.7-12.7); Neutrophils % 84.3 % (38.7-73.9); Platelet Count 180 T/CUMM (130-400); Red Blood Count 2.64 MC/CUMM (3.8-5.5); Red Cell Distribution Width 13.2 % (9.3-17.3); White Blood Count 13.7 T/CUMM (4-12)
[2019-08-25 14:21] LABS: CKMB % 4.8 %
[2019-08-25 14:24] LABS: Troponin I 4.8 NG/ML (0.00-0.045)
[2019-08-25] MEDS: POTASSIUM CHLORIDE RIDER 20 MEQ in PREMIX 1 EACH IV PRN ×3 (14:31→23:28)
[2019-08-25 14:37] LABS: INR 1.2; PT Patient Result 12.9 SECS (9.6-12.2); Partial Thromboplastin Time 26.1 SECS (20.8-36.0)
[2019-08-25 14:45] LABS: Albumin 3.1 G/DL (3.4-5.0); Bilirubin,Total 1.3 MG/DL (0.2-1.0); Calcium 8.5 MG/DL (8.5-10.1); Osmolality,Calculated 291.7 MOS/KG (273-304); Total Protein 4.8 G/DL (6.4-8.3)
[2019-08-25 15:13] LABS: ABG Base Excess -1.5 MMOL/L (-2.5-2.5); ABG HCO3 23.1 MMOL/L (20-26); ABG Oxygen Saturation 99.1 % (95-100); ABG PCO2 53.7 MM HG (35-48); ABG PH 7.287 (7.35-7.45); ABG TCO2 23.8 MMOL/L (23-27); Glucose Heart Surgery 351 MG/DL (74-106); Hematocrit Heart Surgery 28.6 PERCENT (42-52); Hemoglobin Heart Surgery 9.2 G/DL (14.0-18.0); Potassium Heart/CVR 4.3 MMOL/L (3.5-5.1)
[2019-08-25 16:12] LABS: ABG HCO3 23.6 MMOL/L (20-26); ABG Oxygen Saturation 99.5 % (95-100); ABG PCO2 42.8 MM HG (35-48); ABG PH 7.364 (7.35-7.45); ABG TCO2 22.1 MMOL/L (23-27); Glucose Heart Surgery 316 MG/DL (74-106); Hemoglobin Heart Surgery 10.4 G/DL (14.0-18.0); Potassium Heart/CVR 4.5 MMOL/L (3.5-5.1)
[2019-08-25 17:04] LABS: ABG Base Excess -1.1 MMOL/L (-2.5-2.5); ABG HCO3 23.5 MMOL/L (20-26); ABG Oxygen Saturation 99.2 % (95-100); ABG PCO2 42.3 MM HG (35-48); ABG PH 7.366 (7.35-7.45); Glucose Heart Surgery 285 MG/DL (74-106); Hematocrit Heart Surgery 31.8 PERCENT (42-52); Hemoglobin Heart Surgery 10.3 G/DL (14.0-18.0); Potassium Heart/CVR 4.4 MMOL/L (3.5-5.1)
[2019-08-25] MEDS: ALBUMIN 5% 12.5 GM in PREMIX 1 EACH IV PRN (17:05)
[2019-08-25 18:00] LABS: ABG Base Excess -1.8 MMOL/L (-2.5-2.5); ABG HCO3 22.9 MMOL/L (20-26); ABG Oxygen Saturation 98.6 % (95-100); ABG PCO2 41.1 MM HG (35-48); ABG PH 7.365 (7.35-7.45); ABG TCO2 21.5 MMOL/L (23-27); Glucose Heart Surgery 251 MG/DL (74-106); Hemoglobin Heart Surgery 9.7 G/DL (14.0-18.0); Potassium Heart/CVR 4.1 MMOL/L (3.5-5.1)
[2019-08-25] MEDS ORDERED: FUROSEMIDE 40 MG/4 ML VIAL IV ONE (18:33)
[2019-08-25 21:00] LABS: ABG Base Excess -1.4 MMOL/L (-2.5-2.5); ABG HCO3 23.2 MMOL/L (20-26); ABG Oxygen Saturation 97.3 % (95-100); ABG PCO2 43.2 MM HG (35-48); ABG PH 7.356 (7.35-7.45); ABG PO2 88.4 MM HG (80-95); ABG TCO2 21.7 MMOL/L (23-27); Glucose Heart Surgery 214 MG/DL (74-106); Hematocrit Heart Surgery 34.9 PERCENT (42-52); Hemoglobin Heart Surgery 11.3 G/DL (14.0-18.0); Potassium Heart/CVR 3.8 MMOL/L (3.5-5.1)
[2019-08-25] MEDS: CEFUROXIME INJ 1,500 MG in SYRINGE 1 EACH IV SCH (21:50)
[2019-08-25 23:01] LABS: CKMB % 2.9 %
[2019-08-25 23:10] LABS: Troponin I 4.28 NG/ML (0.00-0.045)
[2019-08-26 00:14] LABS: ABG Base Excess -1.7 MMOL/L (-2.5-2.5); ABG HCO3 22.8 MMOL/L (20-26); ABG Oxygen Saturation 97.5 % (95-100); ABG PCO2 37.8 MM HG (35-48); ABG PH 7.398 (7.35-7.45); ABG PO2 108.1 MM HG (80-95); ABG TCO2 23.9 MMOL/L (23-27); Glucose Heart Surgery 150 MG/DL (74-106); Hemoglobin Heart Surgery 11.2 G/DL (14.0-18.0); Potassium Heart/CVR 4.7 MMOL/L (3.5-5.1)
[2019-08-26] MEDS ORDERED: FUROSEMIDE 40 MG/4 ML VIAL IV ONE (01:12)
[2019-08-26] MEDS: ALBUMIN 5% 12.5 GM in PREMIX 1 EACH IV PRN (01:22)
[2019-08-26] MEDS ORDERED: NITROPRUSSIDE 50 MG/2 ML VIAL ONE (02:09)
[2019-08-26 02:47] LABS: ABG HCO3 22.8 MMOL/L (20-26); ABG PCO2 40.1 MM HG (35-48); ABG PH 7.369 (7.35-7.45); ABG PO2 98.3 MM HG (80-95); ABG TCO2 20.9 MMOL/L (23-27); Glucose Heart Surgery 162 MG/DL (74-106); Hematocrit Heart Surgery 33.1 PERCENT (42-52); Hemoglobin Heart Surgery 10.7 G/DL (14.0-18.0)
[2019-08-26 03:52] LABS: ABG Base Excess -1.2 MMOL/L (-2.5-2.5); ABG HCO3 23.4 MMOL/L (20-26); ABG Oxygen Saturation 98.2 % (95-100); ABG PCO2 45.7 MM HG (35-48); ABG PH 7.343 (7.35-7.45); ABG TCO2 22.4 MMOL/L (23-27); Glucose Heart Surgery 184 MG/DL (74-106); Hematocrit Heart Surgery 33.8 PERCENT (42-52)
[2019-08-26 03:56] LABS: Basophils % 0.1 % (0.0-0.8); Hematocrit 29.6 VOL% (42.0-52.0); Hemoglobin 10.1 GM/DL (14.0-18.0); Immature Granulocytes Absolute 0.15 #; Lymphocytes % 6.1 % (21.2-54.2); Mean Corpuscular HGB Conc 34.1 GM/DL (32-36); Mean Corpuscular Volume 88.6 FL (87-102); Mean Platelet Volume 11.5 FL (9.6-12.0); Monocytes % 5.1 % (1.7-12.7); Neutrophils % 87.7 % (38.7-73.9); Platelet Count 161 T/CUMM (130-400); Red Blood Count 3.34 MC/CUMM (3.8-5.5); Red Cell Distribution Width 13.9 % (9.3-17.3); White Blood Count 15.5 T/CUMM (4-12)
[2019-08-26 04:06] LABS: Albumin 3.7 G/DL (3.4-5.0); Bilirubin,Direct 0.25 MG/DL (0.0-0.20); Bilirubin,Total 0.9 MG/DL (0.2-1.0); Calcium 8.3 MG/DL (8.5-10.1); Osmolality,Calculated 292.8 MOS/KG (273-304); Total Protein 5.9 G/DL (6.4-8.3)
[2019-08-26] MEDS ORDERED: DOCUSATE SODIUM 100 MG CAPSULE PO PRN (06:17)
[2019-08-26 07:51] LABS: CKMB % 1.9 %; Troponin I 2.7 NG/ML (0.00-0.045)
[2019-08-26] MEDS: CHLORHEXIDINE 0.12% ORAL RINSE 60 ML BOTTLE SWISH/SPIT SCH ×2 (08:18→21:41)
[2019-08-26] MEDS: ASPIRIN EC 81 MG TABLET PO SCH (08:18)
[2019-08-26] MEDS: MONTELUKAST 10 MG TABLET PO SCH (08:18)
[2019-08-26] MEDS: RANOLAZINE 500 MG TABLET PO SCH ×2 (08:18→21:40)
[2019-08-26] MEDS: BUDESONIDE/FORMOTEROL 80-4.5 INHALER 6.9 GM INH SCH ×2 (08:18→21:42)
[2019-08-26] MEDS: BISOPROLOL 5 MG TABLET PO SCH ×2 (08:18→21:40)
[2019-08-26] MEDS: LEVOTHYROXINE 150 MCG TABLET PO SCH (08:28)
[2019-08-26] MEDS: INSULIN REGULAR 100 UNIT/ML SUBCUT SCH ×4 (08:32→21:42)
[2019-08-26] MEDS: CEFUROXIME INJ 1,500 MG in SYRINGE 1 EACH IV SCH (08:47)
[2019-08-26] MEDS ORDERED: ONDANSETRON 4 MG/2 ML VIAL IV PRN (13:25)
[2019-08-26] MEDS ORDERED: GLUCAGON 1 MG VIAL IM PRN ×2 (13:25)
[2019-08-26] MEDS ORDERED: MAGNESIUM SULF RIDER 2 GM in PREMIX 1 EACH IV PRN (13:25)
[2019-08-26] MEDS ORDERED: ACETAMINOPHEN 325 MG TABLET PO PRN (13:25)
[2019-08-26] MEDS ORDERED: DEXTROSE 10% 250 ML BAG IV PRN ×2 (13:25)
[2019-08-26] MEDS ORDERED: MAGNESIUM SULF RIDER 4 GM in PREMIX 1 EACH IV PRN (13:25)
[2019-08-26] MEDS ORDERED: MAGNESIUM HYDROXIDE SUSP 30 ML UDCUP PO PRN (13:25)
[2019-08-26] MEDS ORDERED: ALUMINUM/MAGNES/SIMETH MAX STR 30 ML UDCUP PO PRN (13:25)
[2019-08-26] MEDS ORDERED: SODIUM CHLOR 0.45% KCL 20 MEQ 20 MEQ/1,000 ML BAG IV SCH (13:30)
[2019-08-26] MEDS: KETOROLAC 15 MG/1 ML VIAL IV SCH ×2 (14:21→21:41)
[2019-08-26] MEDS ORDERED: metFORMIN 500 MG TABLET PO SCH (15:00)
[2019-08-26] MEDS: INSULIN NPH/REGULAR 70/30 100 UNIT/ML SUBCUT SCH (16:23)
[2019-08-26] MEDS: metFORMIN 500 MG TABLET PO SCH (17:34)
[2019-08-26] MEDS ORDERED: INSULIN NPH/REGULAR 70/30 100 UNIT/ML SUBCUT SCH (21:00)
[2019-08-26] MEDS: CILOSTAZOL 50 MG TABLET PO SCH (21:41)
[2019-08-26] MEDS: ATORVASTATIN 80 MG TABLET PO SCH (21:41)
[2019-08-27] MEDS: KETOROLAC 15 MG/1 ML VIAL IV SCH ×3 (00:56→14:23)
[2019-08-27] MEDS: INSULIN REGULAR 100 UNIT/ML SUBCUT SCH ×7 (00:56→23:57)
[2019-08-27] MEDS: LEVOTHYROXINE 150 MCG TABLET PO SCH (05:12)
[2019-08-27 05:53] LABS: Alanine Aminotransferase 57 U/L (16-61); Albumin 3.1 G/DL (3.4-5.0); Alkaline Phosphatase 45 U/L (45-117); Aspartate Amino Transferase 33 U/L (0-37); Bilirubin,Indirect 0.9 MG/DL (0.0-1.0); Blood Urea Nitrogen 42 MG/DL (7-18); Calcium 7.9 MG/DL (8.5-10.1); Estimated Glom Filtration Rate 57 ML/MIN; Glucose 181 MG/DL (74-106); Osmolality,Calculated 292.5 MOS/KG (273-304); Total Protein 5.5 G/DL (6.4-8.3)
[2019-08-27] MEDS ORDERED: FUROSEMIDE 40 MG/4 ML VIAL IV ONE (06:00)
[2019-08-27] MEDS: DOCUSATE SODIUM 100 MG CAPSULE PO SCH (08:28)
[2019-08-27] MEDS: ASPIRIN EC 81 MG TABLET PO SCH (08:28)
[2019-08-27] MEDS: PANTOPRAZOLE 40 MG TABLET PO SCH (08:28)
[2019-08-27] MEDS: RANOLAZINE 500 MG TABLET PO SCH ×2 (08:28→20:51)
[2019-08-27] MEDS: BISOPROLOL 5 MG TABLET PO SCH ×2 (08:28→20:52)
[2019-08-27] MEDS: CILOSTAZOL 50 MG TABLET PO SCH ×2 (08:28→20:52)
[2019-08-27] MEDS: metFORMIN 500 MG TABLET PO SCH ×3 (08:28→17:25)
[2019-08-27] MEDS: CHLORHEXIDINE 0.12% ORAL RINSE 60 ML BOTTLE SWISH/SPIT SCH ×2 (08:29→20:52)
[2019-08-27] MEDS: MONTELUKAST 10 MG TABLET PO SCH (08:29)
[2019-08-27] MEDS: FERROUS SULFATE 325 MG TABLET PO SCH (08:29)
[2019-08-27] MEDS: BUDESONIDE/FORMOTEROL 80-4.5 INHALER 6.9 GM INH SCH ×2 (08:45→20:53)
[2019-08-27] MEDS: INSULIN NPH/REGULAR 70/30 100 UNIT/ML SUBCUT SCH (17:26)
[2019-08-27] MEDS: ATORVASTATIN 80 MG TABLET PO SCH (20:51)
[2019-08-28] MEDS: INSULIN REGULAR 100 UNIT/ML SUBCUT SCH ×6 (05:01→23:32)
[2019-08-28 05:38] LABS: Alanine Aminotransferase 60 U/L (16-61); Alkaline Phosphatase 49 U/L (45-117); Aspartate Amino Transferase 31 U/L (0-37); Bilirubin,Indirect 0.6 MG/DL (0.0-1.0); Blood Urea Nitrogen 41 MG/DL (7-18); Estimated Glom Filtration Rate 83 ML/MIN; Glucose 82 MG/DL (74-106); Osmolality,Calculated 289.3 MOS/KG (273-304); Total Protein 5.6 G/DL (6.4-8.3)
[2019-08-28] MEDS: LEVOTHYROXINE 150 MCG TABLET PO SCH (05:58)
[2019-08-28] MEDS: POTASSIUM CHLORIDE 20 MEQ TABLET PO PRN ×3 (06:02→12:09)
[2019-08-28] MEDS: FERROUS SULFATE 325 MG TABLET PO SCH (08:36)
[2019-08-28] MEDS: BISOPROLOL 5 MG TABLET PO SCH ×2 (08:36→20:29)
[2019-08-28] MEDS: MONTELUKAST 10 MG TABLET PO SCH (08:36)
[2019-08-28] MEDS: metFORMIN 500 MG TABLET PO SCH ×3 (08:36→16:47)
[2019-08-28] MEDS: ASPIRIN EC 81 MG TABLET PO SCH (08:36)
[2019-08-28] MEDS: CILOSTAZOL 50 MG TABLET PO SCH ×2 (08:36→20:29)
[2019-08-28] MEDS: RANOLAZINE 500 MG TABLET PO SCH ×2 (08:37→20:29)
[2019-08-28] MEDS: PANTOPRAZOLE 40 MG TABLET PO SCH (08:37)
[2019-08-28] MEDS: DOCUSATE SODIUM 100 MG CAPSULE PO SCH (08:37)
[2019-08-28] MEDS: CHLORHEXIDINE 0.12% ORAL RINSE 60 ML BOTTLE SWISH/SPIT SCH ×2 (08:38→20:30)
[2019-08-28] MEDS: BUDESONIDE/FORMOTEROL 80-4.5 INHALER 6.9 GM INH SCH ×2 (08:38→20:30)
[2019-08-28] MEDS: INSULIN NPH/REGULAR 70/30 100 UNIT/ML SUBCUT SCH (16:47)
[2019-08-28] MEDS: ATORVASTATIN 80 MG TABLET PO SCH (20:29)
[2019-08-28] MEDS: ZALEPLON 5 MG CAPSULE PO PRN (20:29)
[2019-08-28] MEDS: oxyCODONE/ACETAMINOPHEN 5-325 MG TABLET PO PRN (20:29)
[2019-08-28] MEDS: LOSARTAN 25 MG TABLET PO SCH (20:32)
[2019-08-29] MEDS: INSULIN REGULAR 100 UNIT/ML SUBCUT SCH ×5 (04:08→21:26)
[2019-08-29] MEDS: LEVOTHYROXINE 150 MCG TABLET PO SCH (06:10)
[2019-08-29 09:37] LABS: Calcium 8.6 MG/DL (8.5-10.1); Osmolality,Calculated 289.5 MOS/KG (273-304)
[2019-08-29] MEDS: BUDESONIDE/FORMOTEROL 80-4.5 INHALER 6.9 GM INH SCH ×2 (09:51→21:28)
[2019-08-29] MEDS: PANTOPRAZOLE 40 MG TABLET PO SCH (09:52)
[2019-08-29] MEDS: FERROUS SULFATE 325 MG TABLET PO SCH (09:52)
[2019-08-29] MEDS: MONTELUKAST 10 MG TABLET PO SCH (09:52)
[2019-08-29] MEDS: CHLORHEXIDINE 0.12% ORAL RINSE 60 ML BOTTLE SWISH/SPIT SCH ×2 (09:52→21:28)
[2019-08-29] MEDS: metFORMIN 500 MG TABLET PO SCH ×3 (09:52→16:36)
[2019-08-29] MEDS: CILOSTAZOL 50 MG TABLET PO SCH ×2 (09:53→21:28)
[2019-08-29] MEDS: ASPIRIN EC 81 MG TABLET PO SCH (09:53)
[2019-08-29] MEDS: BISOPROLOL 5 MG TABLET PO SCH ×2 (09:53→21:28)
[2019-08-29] MEDS: LOSARTAN 25 MG TABLET PO SCH ×2 (09:54→21:27)
[2019-08-29] MEDS: DOCUSATE SODIUM 100 MG CAPSULE PO SCH (09:54)
[2019-08-29] MEDS: RANOLAZINE 500 MG TABLET PO SCH ×2 (09:54→21:27)
[2019-08-29] MEDS: ASCORBIC ACID 500 MG TABLET PO SCH ×2 (12:51→21:27)
[2019-08-29] MEDS: INSULIN NPH/REGULAR 70/30 100 UNIT/ML SUBCUT SCH (16:36)
[2019-08-29] MEDS: ATORVASTATIN 80 MG TABLET PO SCH (21:27)
[2019-08-29] MEDS: oxyCODONE/ACETAMINOPHEN 5-325 MG TABLET PO PRN (21:27)
[2019-08-29] MEDS: ZALEPLON 5 MG CAPSULE PO PRN (21:28)
[2019-08-30] MEDS: INSULIN REGULAR 100 UNIT/ML SUBCUT SCH ×6 (00:27→20:39)
[2019-08-30] MEDS: LEVOTHYROXINE 150 MCG TABLET PO SCH (05:30)
[2019-08-30 05:51] LABS: Basophils # 0.1 10*3/uL (0.0-0.2); Basophils % 0.4 % (0.0-0.8); Eosinophils # 0.5 10*3/uL (0.0-0.87); Eosinophils % 3.5 % (0.00-10.9); Hematocrit 27.9 VOL% (42.0-52.0); Hemoglobin 8.7 GM/DL (14.0-18.0); Immature Granulocytes % 4.1 %; Immature Granulocytes Absolute 0.57 #; Lymphocytes # 2.5 10*3/uL (1.4-4.0); Lymphocytes % 17.9 % (21.2-54.2); Mean Corpuscular HGB Conc 31.2 GM/DL (32-36); Mean Corpuscular Volume 95.9 FL (87-102); Mean Platelet Volume 11.5 FL (9.6-12.0); Monocytes % 9.4 % (1.7-12.7); NRBC # 0.05 10*3/uL; Neutrophils % 64.7 % (38.7-73.9); Platelet Count 220 T/CUMM (130-400); Red Blood Count 2.91 MC/CUMM (3.8-5.5); Red Cell Distribution Width 13.7 % (9.3-17.3); White Blood Count 14.1 T/CUMM (4-12)
[2019-08-30 06:09] LABS: Calcium 8.4 MG/DL (8.5-10.1); Osmolality,Calculated 291.7 MOS/KG (273-304)
[2019-08-30 06:16] LABS: Alanine Aminotransferase 44 U/L (16-61); Albumin 2.7 G/DL (3.4-5.0); Alkaline Phosphatase 51 U/L (45-117); Aspartate Amino Transferase 17 U/L (0-37); Blood Urea Nitrogen 29 MG/DL (7-18); Calcium 8.4 MG/DL (8.5-10.1); Estimated Glom Filtration Rate 76 ML/MIN; Glucose 252 MG/DL (74-106); Osmolality,Calculated 291.5 MOS/KG (273-304); Total Protein 5.7 G/DL (6.4-8.3); Troponin I 0.218 NG/ML (0.00-0.045)
[2019-08-30 06:19] LABS: Atypical Lymphocytes Few; Band Neutrophils 3 % (0-10); Eosinophils 3 % (0-10); Hypochromasia 1+; Lymphocytes 12 % (20-55); Nucleated Red Blood Cells 1 (0-5); Segmented Neutrophils 70 % (50-85); Total Cells Counted 100
[2019-08-30 06:20] LABS: Polychromasia Slight
[2019-08-30 06:22] LABS: Microcytosis 1+
[2019-08-30] MEDS: DOCUSATE SODIUM 100 MG CAPSULE PO SCH (09:55)
[2019-08-30] MEDS: ASCORBIC ACID 500 MG TABLET PO SCH ×2 (09:55→20:35)
[2019-08-30] MEDS: MONTELUKAST 10 MG TABLET PO SCH (09:55)
[2019-08-30] MEDS: FERROUS SULFATE 325 MG TABLET PO SCH (09:55)
[2019-08-30] MEDS: ASPIRIN EC 81 MG TABLET PO SCH (09:55)
[2019-08-30] MEDS: BISOPROLOL 5 MG TABLET PO SCH ×2 (09:56→20:36)
[2019-08-30] MEDS ORDERED: FUROSEMIDE 40 MG/4 ML VIAL IV ONE (09:56)
[2019-08-30] MEDS: CHLORHEXIDINE 0.12% ORAL RINSE 60 ML BOTTLE SWISH/SPIT SCH ×2 (09:56→20:39)
[2019-08-30] MEDS: RANOLAZINE 500 MG TABLET PO SCH ×2 (09:56→20:37)
[2019-08-30] MEDS: CILOSTAZOL 50 MG TABLET PO SCH ×2 (09:56→20:36)
[2019-08-30] MEDS: BUDESONIDE/FORMOTEROL 80-4.5 INHALER 6.9 GM INH SCH ×2 (09:57→20:39)
[2019-08-30] MEDS: PANTOPRAZOLE 40 MG TABLET PO SCH (09:57)
[2019-08-30] MEDS: metFORMIN 500 MG TABLET PO SCH ×3 (10:02→16:19)
[2019-08-30] MEDS: LOSARTAN 25 MG TABLET PO SCH ×2 (10:02→20:35)
[2019-08-30] MEDS: ALBUTEROL 1.25 MG/3 ML NEB RESP TX SCH ×3 (11:19→19:55)
[2019-08-30] MEDS: INSULIN NPH/REGULAR 70/30 100 UNIT/ML SUBCUT SCH (16:20)
[2019-08-30] MEDS: ZALEPLON 5 MG CAPSULE PO PRN (20:37)
[2019-08-30] MEDS: oxyCODONE/ACETAMINOPHEN 5-325 MG TABLET PO PRN (20:38)
[2019-08-30] MEDS: ATORVASTATIN 80 MG TABLET PO SCH (20:38)
[2019-08-31] MEDS: INSULIN REGULAR 100 UNIT/ML SUBCUT SCH ×3 (00:53→08:20)
[2019-08-31] MEDS: ALBUTEROL 1.25 MG/3 ML NEB RESP TX SCH ×2 (01:37→07:40)
[2019-08-31 06:17] LABS: Basophils # 0.1 10*3/uL (0.0-0.2); Basophils % 0.6 % (0.0-0.8); Eosinophils # 0.5 10*3/uL (0.0-0.87); Eosinophils % 3.5 % (0.00-10.9); Hematocrit 28.6 VOL% (42.0-52.0); Hemoglobin 8.7 GM/DL (14.0-18.0); Immature Granulocytes % 5.2 %; Immature Granulocytes Absolute 0.71 #; Lymphocytes # 2.9 10*3/uL (1.4-4.0); Lymphocytes % 20.9 % (21.2-54.2); Mean Corpuscular HGB Conc 30.4 GM/DL (32-36); Mean Corpuscular Volume 99.3 FL (87-102); Monocytes % 8.5 % (1.7-12.7); NRBC # 0.02 10*3/uL; Neutrophils % 61.3 % (38.7-73.9); Platelet Count 241 T/CUMM (130-400); Red Blood Count 2.88 MC/CUMM (3.8-5.5); Red Cell Distribution Width 13.8 % (9.3-17.3); White Blood Count 13.8 T/CUMM (4-12)
[2019-08-31] MEDS: LEVOTHYROXINE 150 MCG TABLET PO SCH (06:22)
[2019-08-31 06:38] LABS: Band Neutrophils 1 % (0-10); Eosinophils 5 % (0-10); Hypochromasia 2+; Lymphocytes 20 % (20-55); Metamyelocytes 1 %; Platelet Estimate Normal; Segmented Neutrophils 65 % (50-85); Total Cells Counted 100
[2019-08-31 06:41] LABS: Alanine Aminotransferase 45 U/L (16-61); Albumin 2.7 G/DL (3.4-5.0); Alkaline Phosphatase 51 U/L (45-117); Aspartate Amino Transferase 22 U/L (0-37); Blood Urea Nitrogen 30 MG/DL (7-18); Calcium 8.4 MG/DL (8.5-10.1); Estimated Glom Filtration Rate 75 ML/MIN; Glucose 189 MG/DL (74-106); Osmolality,Calculated 289.4 MOS/KG (273-304); Total Protein 5.8 G/DL (6.4-8.3)
[2019-08-31 06:42] LABS: Troponin I 0.126 NG/ML (0.00-0.045)
[2019-08-31] MEDS: PANTOPRAZOLE 40 MG TABLET PO SCH (08:17)
[2019-08-31] MEDS: CILOSTAZOL 50 MG TABLET PO SCH (08:17)
[2019-08-31] MEDS: RANOLAZINE 500 MG TABLET PO SCH (08:17)
[2019-08-31] MEDS: metFORMIN 500 MG TABLET PO SCH (08:17)
[2019-08-31] MEDS: LOSARTAN 25 MG TABLET PO SCH (08:18)
[2019-08-31] MEDS: ASCORBIC ACID 500 MG TABLET PO SCH (08:18)
[2019-08-31] MEDS: MONTELUKAST 10 MG TABLET PO SCH (08:19)
[2019-08-31] MEDS: FERROUS SULFATE 325 MG TABLET PO SCH (08:19)
[2019-08-31] MEDS: DOCUSATE SODIUM 100 MG CAPSULE PO SCH (08:19)
[2019-08-31] MEDS: ASPIRIN EC 81 MG TABLET PO SCH (08:19)
[2019-08-31] MEDS: CHLORHEXIDINE 0.12% ORAL RINSE 60 ML BOTTLE SWISH/SPIT SCH (08:20)
[2019-08-31] MEDS: BUDESONIDE/FORMOTEROL 80-4.5 INHALER 6.9 GM INH SCH (08:20)
[2019-08-31] MEDS: BISOPROLOL 5 MG TABLET PO SCH (08:20)
[2019-08-31 08:26] VITALS: BP 120/56
== END 2019-08-31 09:27 | disposition home health service (06) | DRG 235 ==
LOC: N.TELES → N.ADMINP 14:48 → INTOOBSV 14:48 → EDSTATUS 08-25 07:34 → N.CVR 08-25 13:19 → N.ICU 08-26 06:49 → N.TELES 08-26 16:47